=== PATIENT | female | born 1955 | race Caucasian/White ===

== ENCOUNTER → 2017-02-28 | Outpatient (CLI) | payer MEDICARE ==
--- NOTE | 2017-03-01 15:57 | WOMENS IMAGING REPORT ---
EXAM DESCRIPTION: BILAT SCREENING MAMMO W/CAD COMPLETED DATE/TIME: 02/28/2017 1:56 pm REASON FOR STUDY: SCREENING MAMMO Z12.31 ENCNTR SCREEN MAMMOGRAM FOR MALIGNANT NEOPLASM OF [place] COMPARISON: None. TECHNIQUE: Standard craniocaudal and mediolateral oblique views of each breast recorded using digita l acquisition. LIMITATIONS: None. FINDINGS: No masses, calcifications or architectural distortion. No areas of suspicion. Read with the assistance of CAD. .[facility] - R2 Cenova Version 1.3 .[facility] - R2 Cenova Version 1.3 .[facility] - R2 Cenova Version 2.4 .[facility] - R2 Cenova Version 2.4 .[facility] - R2 Leg Assembler Version 9.2 IMPRESSION: NORMAL MAMMOGRAM. BIRADS 1. BREAST DENSITY: a. The breasts are almost entirely fatty. BIRAD: 1 NEGATIVE RECOMMENDATION: ROUTINE SCREENING COMMENT: The patient has been notified of the results by letter per MQSA requirements. Additional no tification policies are in place for contacting patient with suspicious or incomplete findings. Quality ID #[id number]: The [employer] recommends an annual screening mammogram for women aged 40 years or over. This facility utilizes a reminder system to ensure that all patients receive reminder letters, and/or direct phone calls for appointments. This includes reminders for routine scr eening mammograms, diagnostic mammograms, or other Breast Imaging Interventions when appropriate. Th is patient will be placed in the appropriate reminder system. The [employer] (ACR) has developed recommendations for screening MRI of the breast s in certain patient populations, to be used in conjunction with mammography. Breast MRI surveillanc e may be appropriate for women with more than 20% lifetime risk of developing breast cancer as deter mined by genetic testing, significant family history of the disease, or history of mantle radiation f or Hodgkins Disease. ACR Practice Guidelines 2008. TECHNICAL DOCUMENTATION: FINDING NUMBER: (1) ASSESSMENT: (1) JOB ID: [id number] [employer]- All Rights Reserved
== END ==
LOC: WI 10:31
PROVIDERS: ATTEND Family Medicine
DX: Z12.31 Encounter for screening mammogram for malignant neoplasm of breast (principal)
CPT/HCPCS: 77067

== ENCOUNTER 2017-03-05 09:27 | Day surgery (SDC) | payer MEDICARE, OTHER ==
[~2017-03-05 09:27] MED LIST: FENTANYL CITRATE INJ/PF 100 MCG/2 ML AMPUL ONE; MIDAZOLAM 2 MG/2 ML INJ ONE; PROPOFOL INJ 200 MG/20 ML VIAL IV ONE
[2017-03-05 11:14] VITALS: BP 116/56
--- NOTE | 2017-03-05 13:33 | Operative Report ---
Operative Report DATE OF SURGERY: 03/05/17 Operative Report: The risks, benefits and alternatives of the procedure including risks of bleeding, perforation requiring surgery are explained to the patient in detail and informed consent was obtained. Patient was taken back to the endoscopy suite and placed in the left, lateral decubital position. Timeout was called. Propofol medications administered. A rectal examination is done which did not reveal any masses, tears or fissures. An Olympus videoscope was inserted into the patient's rectum. The scope was then carefully advanced all the way to the cecum. The cecum was identified by the usual anatomical landmarks including the ileocecal valve as well as the appendiceal office. Photodocumentation was obtained. The scope was then sequentially pulled back via the rest segments of the colon including the ascending colon, hepatic flexure, transverse colon, splenic flexure, descending colon finding to the rectosigmoid portions of the colon. Retroflexion maneuvers performed. PREOPERATIVE DIAGNOSIS: Personal history of colon polyp POSTOPERATIVE DIAGNOSIS: Colon polyp noted descending colon status post removal with snare polypectomy and retrieved. Internal hemorrhoids. Diverticulosis OPERATION: Colonoscopy with snare polypectomy SURGEON: CHUNG REZA ANESTHESIA: LMAC TISSUE REMOVED OR ALTERED: As noted above. COMPLICATIONS: None. ESTIMATED BLOOD LOSS: None. INTRAOPERATIVE FINDINGS: As described above. PROCEDURE: Patient tolerated procedure well. No immediate postprocedure complications are noted. Patient discharged in good condition. Discharge date 03/05/2017. Discharge diet: Regular. Discharge activity: Regular. 2-3 week follow-up to discuss findings. Patient is instructed to call the office or proceed to the emergency room should there be any further problems or questions. I would recommend a 3-5 year surveillance colonoscopy. Await pathology.
== END 2017-03-05 11:10 | disposition home or self-care (01) ==
LOC: END 09:27
PROVIDERS: ATTEND Internal Medicine Gastroenterology
PROC: 0DBG8ZX Excision of Left Large Intestine, Via Natural or Artificial Opening Endoscopic, Diagnostic (ICD-10-PCS; principal; 2017-03-05 12:00)
DX: Z12.11 Encounter for screening for malignant neoplasm of colon (principal); K57.30 Diverticulosis of large intestine without perforation or abscess without bleeding; K64.8 Other hemorrhoids; I10 Essential (primary) hypertension; M19.90 Unspecified osteoarthritis, unspecified site; E11.9 Type 2 diabetes mellitus without complications; K74.60 Unspecified cirrhosis of liver; K76.0 Fatty (change of) liver, not elsewhere classified; K21.9 Gastro-esophageal reflux disease without esophagitis; F17.210 Nicotine dependence, cigarettes, uncomplicated; Z79.4 Long term (current) use of insulin; Z79.1 Long term (current) use of non-steroidal anti-inflammatories (NSAID)
CPT/HCPCS: 45385; 82962; 88305 ×2; J2704; J2250; J3010

== ENCOUNTER 2017-03-18 19:42 | Inpatient (IN) | payer MEDICARE, OTHER ==
[2017-03-18] MEDS ORDERED: NORMAL SALINE 1000 ML 1,000 ML IV ONE (20:03)
[2017-03-18] MEDS ORDERED: ACETAMINOPHEN 325 MG TABLET PO ONE (20:04)
[2017-03-18] MEDS ORDERED: LEVOFLOXACIN 750 MG/D5W RTU 750 MG/150 ML RTUPB IV ONE (20:19)
[2017-03-18] MEDS ORDERED: RINGERS SOLUTION,LACTATED 1,000 ML IV ONE (20:20)
--- NOTE | 2017-03-18 20:21 | ER Document Report ---
ED General - General Chief Complaint: Flu Symptoms Stated Complaint: BACK PAIN,COUGH,CONGESTION Time Seen by Provider: 03/18/17 20:03 Notes: Patient is a 61-year-old female with a past medical history of liver cirrhosis, chronic kidney disease, diabetes with insulin dependence, who presents with confusion, cough, fever, and vomiting. Symptoms have been worsening since onset. She presents with a friend with whom she lives. The majority of the history as presented by the friend at the bedside as patient is still somewhat confused at time of evaluation. She reports for the past 24 hours patient has been had progressively worsening cough, apparent shortness of breath, fever and confusion. She denies any history of similar symptoms in the recent past. The patient was seen by an urgent care and was instructed to come to the emergency department due to her clinical appearance and vital signs. Patient has not tried any to improve her symptoms and nothing seems to worsen her symptoms. She does not smoke. TRAVEL OUTSIDE OF THE [place] IN LAST 30 DAYS: No - Related Data Allergies/Adverse Reactions: No Known Allergies Allergy (Verified 03/18/17 19:42) Past Medical History - General Information source: Friend - Social History Smoking Status: Never Smoker Frequency of alcohol use: None Drug Abuse: None Lives with: Friend Family History: Reviewed & Not Pertinent - Past Medical History Cardiac Medical History: Reports: Hx Hypertension Denies: Hx Coronary Artery Disease, Hx Heart Attack Pulmonary Medical History: Reports: Hx Asthma, Hx Pneumonia - A BABY Denies: Hx Bronchitis, Hx COPD Neurological Medical History: Denies: Hx Cerebrovascular Accident, Hx Seizures Musculoskeltal Medical History: Reports Hx Arthritis - Immunizations Hx Diphtheria, Pertussis, Tetanus Vaccination: No Hx Pneumococcal Vaccination: 09/19/16 Review of Systems - Review of Systems Notes: Constitutional: Positive for fever. HENT: Negative for sore throat. Eyes: Negative for visual changes. Cardiovascular: Negative for chest pain. Respiratory: Positive for shortness of breath and cough Gastrointestinal: Negative for abdominal pain, positive for vomiting Genitourinary: Negative for dysuria. Musculoskeletal: Negative for back pain. Skin: Negative for rash. Neurological: Negative for headaches, weakness or numbness. 10 point ROS negative except as marked above and in HPI. Physical Exam - Vital signs Vitals: Temp Pulse Resp BP Pulse Ox 100.6 F H 99 20 92/51 L 90 L 03/18/17 19:49 03/18/17 19:49 03/18/17 19:49 03/18/17 19:49 03/18/17 19:49 Interpretation: Hypotensive, Hypoxic, Tachypneic, Febrile Notes: PHYSICAL EXAMINATION: GENERAL: Somewhat listless, ill in appearance HEAD: Atraumatic, normocephalic. EYES: Pupils equal round and reactive to light, extraocular movements intact, sclera anicteric, conjunctiva are normal. ENT: nares patent, oropharynx clear without exudates. Dry mucous membranes. NECK: Normal range of motion, supple without lymphadenopathy LUNGS: Breath sounds diminished at the left base otherwise mild tachypnea but no overt respiratory distress HEART: Regular tachycardia without murmurs ABDOMEN: Soft, nontender, normoactive bowel sounds. No guarding, no rebound. No masses appreciated. EXTREMITIES: Normal range of motion, no pitting or edema. No cyanosis. NEUROLOGICAL: No focal neurological deficits. Moves all extremities spontaneously and on command. PSYCH: Somewhat somnolent, listless, but oriented X3 SKIN: Warm, Dry, normal turgor, no rashes or lesions noted. Course - Re-evaluation Re-evalutation: 03/18/17 20:19 Patient presents with signs and symptoms most concerning for a left lower lobe pneumonia. She is diminished on the left base on lung auscultation is hypoxic to 89% on room air without a baseline oxygen dependency. She arrives febrile and tachycardic, mildly listless and ill in appearance. Full sepsis workup will immediately be initiated, will start IV levofloxacin given clinical history and suspicion for pneumonia, obtain flu testing, and provide aggressive IV hydration. Will reassess on regular intervals given patient's current status. 03/18/17 21:00 Patient blood pressure has improved dramatically after receiving a total of 1 L of fluids, currently receiving second liter at this time. Current blood pressure 118 and 44. Heart rate is also normalized 82 bpm. Saturating 96% on 3 L by nasal cannula. Chest x-ray is suggestive of a possible right middle and left lower lobe pneumonia. Lactate 1.9. Given patient's oxygen dependence will consult with hospitalist for admission. 03/18/17 21:20 I discussed this case with Dr. Leyva who is accepted the patient for admission. She continues to be much clinically improved, now joking with staff members. - Vital Signs Vital signs: Temp Pulse Resp BP Pulse Ox 98.8 F 76 18 119/63 93 03/18/17 23:47 03/19/17 00:15 03/19/17 00:15 03/19/17 00:00 03/19/17 00:01 - Laboratory Result Diagrams: 03/18/17 20:30 03/18/17 20:30 Laboratory results interpreted by me: 03/18/17 03/18/17 03/18/17 20:30 20:30 20:30 RDW 14.1 H Plt Count 116 L Monocytes % 15.9 H VBG pH 7.43 H BUN 23 H Creatinine 1.60 H Est GFR ( Amer) 40 L Est GFR (Non-Af Amer) 33 L Glucose 127 H Direct Bilirubin AST ALT Ammonia 03/18/17 03/18/17 20:30 20:30 RDW Plt Count Monocytes % VBG pH BUN Creatinine Est GFR ( Amer) Est GFR (Non-Af Amer) Glucose Direct Bilirubin 0.5 H AST 122 H ALT 69 H Ammonia 33.3 H - Diagnostic Test Radiology reviewed: Image reviewed, Reports reviewed Critical Care Note - Critical Care Note Total time excluding time spent on procedures (mins): 38 Comments: Critical care time spent obtaining history from patient or surrogate, discussions with consultants, development of treatment plan with patient or surrogate, evaluation of patient's response to treatment, examination of patient , ordering and performing treatments and interventions, ordering and review of laboratory studies, re-evaluation of patient's condition, ordering and review of radiographic studies and review of old charts Discharge - Discharge Clinical Impression: Hypoxemia Sepsis Qualifiers: Sepsis type: sepsis due to unspecified organism Qualified Code(s): A41.9 - Sepsis, unspecified organism Left lower lobe pneumonia Qualifiers: Pneumonia type: due to unspecified organism Qualified Code(s): J18.1 - Lobar pneumonia, unspecified organism Hypotension Qualifiers: Hypotension type: unspecified hypotension type Qualified Code(s): I95.9 - Hypotension, unspecified Condition: Fair Disposition: ADMITTED INPATIENT [facility] Admitted: Telemetry
[2017-03-18 20:44] LABS: ABSOLUTE LYMPHOCYTES (AUTO) 1.1 10^3/uL (0.5-4.7); ABSOLUTE MONOCYTES (AUTO) 1.3 10^3/uL (0.1-1.4); ABSOLUTE NEUT (AUTO) 5.5 10^3/uL (1.7-8.2); BASOPHILS % (AUTO) 0.6 % (0-2); EOSINOPHILS % (AUTO) 0.1 % (0-6); HEMATOCRIT 44.2 % (36.0-47.0); LYMPHOCYTES % (AUTO) 14.3 % (13-45); MEAN CORPUSCULAR HEMOGLOBIN 31.8 pg (27.0-33.4); MEAN CORPUSCULAR VOLUME 94 fl (80-97); MONOCYTES % (AUTO) 15.9 % (3-13); PLATELET COUNT 116 10^3/uL (150-450); RED BLOOD COUNT 4.73 10^6/uL (3.72-5.28); RED CELL DISTRIBUTION WIDTH 14.1 % (11.5-14.0); SEGMENTED NEUTROPHILS % (AUTO) 69.1 % (42-78); TOTAL CELLS COUNTED % (AUTO) 100 %
[2017-03-18 20:45] LABS: VENOUS BLOOD HCO3 23.9 mmol/L (20-32); VENOUS BLOOD PCO2 36.7 mmHg (35-63); VENOUS BLOOD PH 7.43 (7.30-7.42)
--- NOTE | 2017-03-18 20:53 | RADIOLOGY REPORT (SQ) ---
EXAM DESCRIPTION: CHEST SINGLE VIEW COMPLETED DATE/TIME: 03/18/2017 8:42 pm REASON FOR STUDY: sob, fever COMPARISON: None. NUMBER OF VIEWS: One view. TECHNIQUE: Single frontal radiographic view of the chest acquired. LIMITATIONS: None. FINDINGS: LUNGS AND PLEURA: Suspect scar or subsegmental atelectasis in the lingula. Density along the right heart border may reflect right middle lobe pneumonia. Upper lung tierney are clear. MEDIASTINUM AND HILAR STRUCTURES: No masses. Contour normal. HEART AND VASCULAR STRUCTURES: Heart size looks prominent, possibly accentuated by portable technique . BONES: No acute findings. HARDWARE: None in the chest. OTHER: No other significant finding. IMPRESSION: Lung opacities as above. Right middle lobe pneumonia may be present. Two-view nonporta ble PA and lateral chest imaging may help to further confirm this. TECHNICAL DOCUMENTATION: JOB ID: [id number] [employer]- All Rights Reserved
[2017-03-18 21:03] LABS: ANION GAP 12 (5-19); BLOOD UREA NITROGEN 23 mg/dL (7-20); CALCIUM 8.8 mg/dL (8.4-10.2); CARBON DIOXIDE 24 mmol/L (22-30); CHLORIDE 103 mmol/L (98-107); GLUCOSE 127 mg/dL (75-110); POTASSIUM 3.6 mmol/L (3.6-5.0); SODIUM 138.9 mmol/L (137-145)
[2017-03-18 21:35] LABS: A TYPE INFLUENZA AG NEGATIVE (NEGATIVE); B INFLUENZA AG NEGATIVE (NEGATIVE)
[2017-03-18 21:44] LABS: ALANINE AMINOTRANSFERASE 69 U/L (9-52); ALBUMIN 3.5 g/dL (3.5-5.0); ALKALINE PHOSPHATASE 84 U/L (38-126); ASPARTATE AMINO TRANSFERASE 122 U/L (14-36); BILIRUBIN,DIRECT 0.5 mg/dL (0.0-0.4); BILIRUBIN,TOTAL 1.3 mg/dL (0.2-1.3); TOTAL PROTEIN 6.4 g/dL (6.3-8.2)
[2017-03-18] MEDS ORDERED: INSULIN GLARGINE,HUM.REC.ANLOG 300 UNIT/3 ML INSULN.PEN SUBCUT SCH (22:00)
[2017-03-18] MEDS ORDERED: GUAIFENESIN 600 MG TABLET.SA PO SCH (22:00)
[2017-03-18] MEDS ORDERED: DEXTROSE 40% GEL 15 GM TUBE PO PRN ×2 (22:04)
[2017-03-18] MEDS ORDERED: DEXTROSE 50%-WATER 25 GM/50 ML DISP.SYRIN IV PRN ×2 (22:04)
[2017-03-18] MEDS ORDERED: GLUCAGON,HUMAN RECOMB 1 MG INJ IM PRN (22:04)
[2017-03-18] MEDS ORDERED: GUAIFENESIN SYRP 200 MG/10 ML UDC PO PRN (22:04)
[2017-03-18] MEDS ORDERED: ALBUTEROL SULFATE 0.083% NEB 2.5 MG/3 ML AMPUL NEB PRN (22:04)
--- NOTE | 2017-03-18 22:42 | PDOC H&P ---
History of Present Illness Admission Date/PCP: 03/18/17 21:45 [facility] DO Patient complains of: Shortness of breath and cough History of Present Illness: ELISSA ROBERTS is a 61 year old female with known diabetes, chronic kidney disease, COPD and cirrhosis, presents to the emergency room with worsening shortness of breath over the last day. Upon evaluation in the emergency room she was found to have a right middle lobe pneumonia. She was started on antibiotic therapy and referred to us for ongoing care. Past Medical History Cardiac Medical History: Reports: Hypertension Denies: Coronary Artery Disease, Myocardial Infarction Pulmonary Medical History: Reports: Asthma, Pneumonia - A BABY Denies: Bronchitis, Chronic Obstructive Pulmonary Disease (COPD) Neurological Medical History: Denies: Seizures Endocrine Medical History: Reports: Diabetes Mellitus Type 2 Renal/ Medical History: Reports: Chronic Kidney Disease GI Medical History: Reports: Cirrhosis Musculoskeltal Medical History: Reports: Arthritis Hematology: Denies: Anemia Past Surgical History Past Surgical History: Reports: None Social History Information Source: Patient Lives with: Friend Smoking Status: Never Smoker Frequency of Alcohol Use: None Hx Recreational Drug Use: No Drugs: None Hx Prescription Drug Abuse: No Past Social History Note: Patient is - Advance Directive Resuscitation Status: Full Code Surrogate healthcare decision maker:: She wishes her friend and apartment mate to be her DURABLE POWER OF SALESPERSON RECREATIONAL VEHICLES for healthcare Family History Family History: Malignancy, Other - Cirrhosis, emphysema Parental Family History Reviewed: Yes Children Family History Reviewed: Yes Sibling(s) Family History Reviewed.: Yes Medication/Allergy Home Medications: Escitalopram Oxalate [Lexapro] 10 mg PO DAILY 03/01/17 Fluticasone/Salmeterol [Advair 250-50 Diskus 28 dose] 1 inh IH Q12H 03/01/17 Gabapentin 400 mg PO TID 03/01/17 Hydrochlorothiazide 12.5 mg PO DAILY 03/01/17 Hydroxyzine HCl [Atarax 25 mg Tablet] 1 - 2 tab PO ASDIR PRN 03/01/17 Insulin Aspart [Novolog Flexpen] 0 unit SUBCUT .SLD SCALE 03/01/17 Insulin Glargine,Hum.rec.anlog [Lantus Insulin Inj 300 Unit/3 ml Pen] 1 unit SUBCUT QHS 03/01/17 Lactulose [Constulose 10 gm/15 mL Oral Solution] 10 gm PO TID 03/01/17 Losartan Potassium [Cozaar 100 mg Tablet] 100 mg PO DAILY 03/01/17 Pantoprazole Sodium 20 mg PO ASDIR PRN 03/01/17 Allergies/Adverse Reactions: No Known Allergies Allergy (Verified 03/18/17 19:42) Review of Systems Constitutional: ABSENT: chills, fever(s), headache(s), weight gain, weight loss Eyes: ABSENT: visual disturbances Ears: ABSENT: hearing changes Cardiovascular: ABSENT: chest pain, dyspnea on exertion, edema, orthropnea, palpitations Respiratory: PRESENT: as per HPI, cough, dyspnea Gastrointestinal: ABSENT: abdominal pain, constipation, diarrhea, hematemesis, hematochezia, nausea, vomiting Genitourinary: ABSENT: dysuria, hematuria Musculoskeletal: ABSENT: joint swelling Integumentary: ABSENT: rash, wounds Neurological: PRESENT: memory loss. ABSENT: abnormal gait, abnormal speech, confusion, dizziness, focal weakness, syncope Psychiatric: ABSENT: anxiety, depression, homidical ideation, suicidal ideation Endocrine: PRESENT: other - Diabetes. ABSENT: cold intolerance, heat intolerance, polydipsia, polyuria Hematologic/Lymphatic: ABSENT: easy bleeding, easy bruising Physical Exam Vital Signs: Temp Pulse Resp BP Pulse Ox 100.6 F H 99 20 118/61 95 03/18/17 19:49 03/18/17 19:49 03/18/17 22:01 03/18/17 22:01 03/18/17 22:01 General appearance: PRESENT: no acute distress, cooperative, morbidly obese, well-nourished Head exam: PRESENT: atraumatic, normocephalic Eye exam: PRESENT: conjunctiva pink, EOMI, PERRLA. ABSENT: scleral icterus Ear exam: PRESENT: normal external ear exam Mouth exam: PRESENT: moist, tongue midline Neck exam: ABSENT: carotid bruit, JVD, lymphadenopathy, thyromegaly Respiratory exam: PRESENT: wheezes - Right sided, other - Bronchial breath sounds on the right base Cardiovascular exam: PRESENT: RRR. ABSENT: diastolic murmur, rubs, systolic murmur GI/Abdominal exam: PRESENT: normal bowel sounds, soft. ABSENT: distended, guarding, mass, organolmegaly, rebound, tenderness Rectal exam: PRESENT: deferred Extremities exam: PRESENT: full ROM. ABSENT: calf tenderness, clubbing, pedal edema Neurological exam: PRESENT: alert, awake, oriented to person, oriented to place , oriented to time, oriented to situation, CN II-XII grossly intact. ABSENT: motor sensory deficit Psychiatric exam: PRESENT: appropriate affect, normal mood. ABSENT: homicidal ideation, suicidal ideation Skin exam: PRESENT: dry, intact, warm. ABSENT: cyanosis, rash Results Laboratory Results: 03/18/17 03/18/17 03/18/17 20:30 20:30 20:30 WBC 8.0 Hgb 15.0 Hct 44.2 Plt Count 116 L VBG pH VBG pCO2 VBG HCO3 Sodium 138.9 Potassium 3.6 Carbon Dioxide 24 BUN 23 H Creatinine 1.60 H Glucose 127 H Lactic Acid 1.9 AST ALT Alkaline Phosphatase Ammonia Total Protein Albumin Influenza A (Rapid) Influenza B (Rapid) 03/18/17 03/18/17 03/18/17 20:30 20:30 20:30 WBC Hgb Hct Plt Count VBG pH 7.43 H VBG pCO2 36.7 VBG HCO3 23.9 Sodium Potassium Carbon Dioxide BUN Creatinine Glucose Lactic Acid AST 122 H ALT 69 H Alkaline Phosphatase 84 Ammonia 33.3 H Total Protein 6.4 Albumin 3.5 Influenza A (Rapid) Influenza B (Rapid) 03/18/17 20:45 WBC Hgb Hct Plt Count VBG pH VBG pCO2 VBG HCO3 Sodium Potassium Carbon Dioxide BUN Creatinine Glucose Lactic Acid AST ALT Alkaline Phosphatase Ammonia Total Protein Albumin Influenza A (Rapid) NEGATIVE Influenza B (Rapid) NEGATIVE Impressions: Chest X-Ray 03/18/17 20:03 IMPRESSION: Lung opacities as above. Right middle lobe pneumonia may be present. Two-view nonportable PA and lateral chest imaging may help to further confirm this. Assessment & Plan - Diagnosis (1) RML pneumonia Qualifiers: Pneumonia type: due to unspecified organism Qualified Code(s): J18.1 - Lobar pneumonia, unspecified organism Is this a current diagnosis for this admission?: Yes (2) Acute respiratory failure with hypoxemia Is this a current diagnosis for this admission?: Yes (3) CKD (chronic kidney disease) stage 3, GFR 30-59 ml/min Is this a current diagnosis for this admission?: Yes (4) Hypotension Qualifiers: Hypotension type: unspecified hypotension type Qualified Code(s): I95.9 - Hypotension, unspecified Is this a current diagnosis for this admission?: Yes (5) Hypoxemia Is this a current diagnosis for this admission?: Yes (6) Sepsis Qualifiers: Sepsis type: sepsis due to unspecified organism Qualified Code(s): A41.9 - Sepsis, unspecified organism Is this a current diagnosis for this admission?: Yes - Time Time Spent: 30 to 50 Minutes - Inpatient Certification Based on my medical assessment, after consideration of the patient's comorbidities, presenting symptoms, or acuity I expect that the services needed warrant INPATIENT care.: Yes I certify that my determination is in accordance with my understanding of Medicare's requirements for reasonable and necessary INPATIENT services [42 CFR 412.3e].: Yes Medical Necessity: Significant Comorbidiites Make Outpatient Treatment Too Risky , Need Close Monitoring Due to Risk of Patient Decompensation, Need For IV Fluids, Need for Nebulizer Therapy and Monitoring of Response, Need for IV Antibiotics, Risk of Complication if Not Cared For in Hospital - Plan Summary Plan Summary: This patient will be admitted to a regular nursing floor. She is currently in no distress with satisfactory saturations and blood pressure. She will continue on supplemental oxygen and antibiotics as well as aerosolized bronchodilators. I would suspect that once she no longer requires supplemental oxygen she can complete her course of antibiotics orally. She will receive DVT prophylaxis with low molecular weight heparin. Anticipated length of stay is greater than 2 midnights
[2017-03-19] MEDS: IPRATROPIUM/ALBUTEROL 0.5-2.5 MG/3 ML AMPUL NEB SCH ×4 (00:15→23:59)
[2017-03-19] MEDS: LACTULOSE SYRUP 20 GM/30 ML UDCUP PO SCH ×3 (00:18→22:07)
[2017-03-19] MEDS: RINGERS SOLUTION,LACTATED 1,000 ML IV PRN ×2 (01:40→14:13)
[2017-03-19] MEDS ORDERED: INFLUENZA ADLT QUAD (36MOS+) 2017-18 VAC 0.5 ML SYR IM PRN (01:58)
[2017-03-19 02:06] LABS: APPEARANCE,URINE CLEAR; BILIRUBIN,URINE NEGATIVE (NEGATIVE); COLOR,URINE YELLOW; GLUCOSE, URINE NEGATIVE (NEGATIVE); KETONES,URINE NEGATIVE (NEGATIVE); LEUKOCYTE ESTERASE,URINE SMALL (NEGATIVE); NITRITE,URINE NEGATIVE (NEGATIVE); PROTEIN,URINE NEGATIVE (NEGATIVE)
[2017-03-19 04:56] LABS: ABSOLUTE LYMPHOCYTES (AUTO) 1.5 10^3/uL (0.5-4.7); ABSOLUTE NEUT (AUTO) 3.7 10^3/uL (1.7-8.2); BASOPHILS % (AUTO) 0.5 % (0-2); EOSINOPHILS % (AUTO) 0.3 % (0-6); HEMATOCRIT 38.6 % (36.0-47.0); HEMOGLOBIN 13.1 g/dL (12.0-15.5); LYMPHOCYTES % (AUTO) 24.3 % (13-45); MEAN CORPUSCULAR HEMOGLOBIN 31.8 pg (27.0-33.4); MEAN CORPUSCULAR HGB CONC 33.9 g/dL (32.0-36.0); MEAN CORPUSCULAR VOLUME 94 fl (80-97); MONOCYTES % (AUTO) 15.9 % (3-13); RED BLOOD COUNT 4.12 10^6/uL (3.72-5.28); RED CELL DISTRIBUTION WIDTH 14.3 % (11.5-14.0); TOTAL CELLS COUNTED % (AUTO) 100 %; WHITE BLOOD COUNT 6.3 10^3/uL (4.0-10.5)
[2017-03-19 05:17] LABS: ANION GAP 9 (5-19); BLOOD UREA NITROGEN 20 mg/dL (7-20); CALCIUM 8.5 mg/dL (8.4-10.2); CARBON DIOXIDE 23 mmol/L (22-30); CHLORIDE 107 mmol/L (98-107); GLUCOSE 87 mg/dL (75-110); POTASSIUM 3.1 mmol/L (3.6-5.0); SODIUM 138.6 mmol/L (137-145)
[2017-03-19 05:38] LABS: PLATELET COUNT 87 10^3/uL (150-450)
--- NOTE | 2017-03-19 08:56 | RADIOLOGY REPORT (SQ) ---
EXAM DESCRIPTION: CHEST PA/LAT COMPLETED DATE/TIME: 03/19/2017 7:49 am REASON FOR STUDY: pneumonia COMPARISON: 03/18/2017 EXAM PARAMETERS: NUMBER OF VIEWS: two views TECHNIQUE: Digital Frontal and Lateral radiographic views of the chest acquired. RADIATION DOSE: NA LIMITATIONS: none FINDINGS: LUNGS AND PLEURA: Persistent bibasilar opacities without improvement. Fullness along the right heart border continues. MEDIASTINUM AND HILAR STRUCTURES: No masses or contour abnormalities. HEART AND VASCULAR STRUCTURES: Heart normal size. No evidence for failure. BONES: No acute findings. HARDWARE: None in the chest. OTHER: No other significant finding. IMPRESSION: No improvement in the parenchymal opacities. Questionable mass along the right heart border. Possibly pericardial cyst. RECOMMENDATION: Consider CT scan chest. TECHNICAL DOCUMENTATION: JOB ID: [id number] [employer]- All Rights Reserved
[2017-03-19] MEDS: FAMOTIDINE 20 MG TABLET PO SCH ×2 (09:14→22:07)
[2017-03-19] MEDS: GUAIFENESIN 600 MG TABLET.SA PO SCH ×2 (09:15→22:07)
[2017-03-19] MEDS: ENOXAPARIN SODIUM INJ 30 MG/0.3 ML DISP.SYRIN SUBCUT SCH (09:18)
[2017-03-19] MEDS: ACETAMINOPHEN 325 MG TABLET PO PRN (10:33)
--- NOTE | 2017-03-19 10:51 | PDOC PROGRESS REPORT ---
Subjective Progress Note for:: 03/19/17 Subjective:: The patient was admitted overnight with hypoxic respiratory failure thought to be secondary to pneumonia. She had a repeat chest x-ray this morning that revealed persistent infiltrate and they could not rule out an underlying mass. The patient however is doing very well. She has been weaned off of her oxygen at this point and is doing well. She has had no fever or chills since she came into the hospital. She continues to have a cough with bronchospasm. She is somewhat short of breath at times. She has no chest pain or heart palpitations. No nausea, vomiting or diarrhea. No dysuria, frequency or hematuria Reason For Visit: SEPSIS Physical Exam Vital Signs: Temp Pulse Resp BP Pulse Ox 97.7 F 67 20 117/62 95 03/19/17 07:09 03/19/17 09:07 03/19/17 09:07 03/19/17 07:09 03/19/17 09:07 Pulse Oximeter Continuous Start: 03/18/17 22: 08 Freq: RTQ4 Status: Active Document 03/19/17 09:07 TPO (Rec: 03/19/17 09:20 TPO [email or web address]) Pulse Oximetry Assessment Oxygen Saturation (92-100) 95 Oxygen Delivery Method Room Air Fraction of Inspired Oxygen (FIO2) 21 Equipment Usage Equipment in Use Continuous SpO2 Machine # 14 Intake & Output 03/18/17 03/19/17 03/20/17 06:59 06:59 06:59 Intake Total 883 Output Total 1100 Balance -217 Weight 82.5 kg General appearance: PRESENT: no acute distress, obese, well-developed, well- nourished Head exam: PRESENT: atraumatic, normocephalic Mouth exam: PRESENT: moist, tongue midline Respiratory exam: PRESENT: other - She has some wheezing and coarse breath sounds throughout all lung tierney anteriorly Cardiovascular exam: PRESENT: RRR. ABSENT: diastolic murmur, rubs, systolic murmur GI/Abdominal exam: PRESENT: normal bowel sounds, soft. ABSENT: distended, guarding, mass, organolmegaly, rebound, tenderness Rectal exam: PRESENT: deferred Extremities exam: PRESENT: full ROM. ABSENT: calf tenderness, clubbing, pedal edema Neurological exam: PRESENT: alert, awake, oriented to person, oriented to place , oriented to time, oriented to situation, CN II-XII grossly intact. ABSENT: motor sensory deficit Psychiatric exam: PRESENT: appropriate affect, normal mood. ABSENT: homicidal ideation, suicidal ideation Skin exam: PRESENT: dry, intact, warm. ABSENT: cyanosis, rash Results Laboratory Results: 03/19/17 04:25 03/19/17 04:25 03/19/17 03/19/17 03/19/17 01:25 04:25 04:25 WBC 6.3 RBC 4.12 Hgb 13.1 Hct 38.6 MCV 94 MCH 31.8 MCHC 33.9 RDW 14.3 H Plt Count 87 L Seg Neutrophils % 59.0 Lymphocytes % 24.3 Monocytes % 15.9 H Eosinophils % 0.3 Basophils % 0.5 Absolute Neutrophils 3.7 Absolute Lymphocytes 1.5 Absolute Monocytes 1.0 Absolute Eosinophils 0.0 Absolute Basophils 0.0 Sodium 138.6 Potassium 3.1 L Chloride 107 Carbon Dioxide 23 Anion Gap 9 BUN 20 Creatinine 1.33 H Est GFR ( Amer) 49 L Est GFR (Non-Af Amer) 40 L Glucose 87 Calcium 8.5 Urine Color YELLOW Urine Appearance CLEAR Urine pH 6.0 Ur Specific [place] 1.010 Urine Protein NEGATIVE Urine Glucose (UA) NEGATIVE Urine Ketones NEGATIVE Urine Blood NEGATIVE Urine Nitrite NEGATIVE Ur Leukocyte Esterase SMALL H Urine WBC (Auto) 8 Urine RBC (Auto) 0 Impressions: Chest X-Ray 03/19/17 00:00 IMPRESSION: No improvement in the parenchymal opacities. Questionable mass along the right heart border. Possibly pericardial cyst. Assessment & Plan - Diagnosis (1) Acute respiratory failure with hypoxemia Is this a current diagnosis for this admission?: Yes Plan: Her hypoxia has resolved at this point. Her acute respiratory failure is likely secondary to underlying pneumonia. (2) Sepsis Qualifiers: Sepsis type: sepsis due to unspecified organism Qualified Code(s): A41.9 - Sepsis, unspecified organism Is this a current diagnosis for this admission?: Yes Plan: Present on admission manifested by leukocytosis, relative hypotension, tachypnea , tachycardia and evidence of infection. Her sepsis symptoms are slowly resolving. (3) RML pneumonia Qualifiers: Pneumonia type: due to unspecified organism Qualified Code(s): J18.1 - Lobar pneumonia, unspecified organism Is this a current diagnosis for this admission?: Yes Plan: Concerns are for gram positives and atypicals. She will continue IV Levaquin. This is the first full day of treatment. Due to concerns for underlying mass lesion seen onChest x-ray I will obtain a CT scan of her chest today. (4) COPD (chronic obstructive pulmonary disease) Is this a current diagnosis for this admission?: Yes Plan: At this point she does not appear to be having an acute exacerbation. (5) Cirrhosis Is this a current diagnosis for this admission?: Yes Plan: Stable. She told me today that she often has issues with hepatic encephalopathy. Today she is having no issues with her mental status. (6) Diabetes Is this a current diagnosis for this admission?: Yes Plan: She has insulin-dependent diabetes. She will continue Lantus with sliding scale coverage. (7) CKD (chronic kidney disease) stage 3, GFR 30-59 ml/min Is this a current diagnosis for this admission?: Yes Plan: I believe she is at her baseline but we will check a chemistry panel in the morning. (8) Hypokalemia Is this a current diagnosis for this admission?: Yes Plan: Repleted. She will have a level checked in the morning. - Time Time Spent with patient: 25-34 minutes - Inpatient Certification Medical Necessity: Need for IV Antibiotics, Other - Inpatient hospitalization remains necessary. The patient presented with acute hypoxic respiratory failure and pneumonia. She is improving. If she continues to do well for the next 24 hours she hopefully can be discharged tomorrow.
--- NOTE | 2017-03-19 12:16 | RADIOLOGY REPORT (SQ) ---
EXAM DESCRIPTION: CT CHEST WITH COMPLETED DATE/TIME: 03/19/2017 11:50 am REASON FOR STUDY: ? pna vs mass COMPARISON: None. TECHNIQUE: CT scan of the chest performed using helical scanning technique with dynamic intravenous contrast injection. Images reviewed with lung, soft tissue and bone windows. Reconstructed coronal and sagittal MPR images reviewed. All images stored on PACS. All CT scanners at this facility use dose modulation, iterative reconstruction, and/or weight based d osing when appropriate to reduce radiation dose to as low as reasonably achievable (ALARA). [facility]: Dose Right [facility]: CareDose [facility]: Dose Right [facility]: Teradose 4D [facility]: BackTrack CONTRAST TYPE AND DOSE: contrast/concentration: Isovue 370.00 mg/ml; Total Contrast Delivered: 79.0 ml; Total Saline Delivered: 44.0 ml RENAL FUNCTION: BUN 20 creatinine 1.3. RADIATION DOSE: CT Rad equipment meets quality standard of care and radiation dose reduction techniq ues were employed. CTDIvol: 19.8 mGy. DLP: 796 mGy-cm. . LIMITATIONS: None. FINDINGS: LUNGS AND PLEURA: Subsegmental airspace disease in the lingula. Calcified granuloma right upper lobe. No effusions. HILAR AND MEDIASTINAL STRUCTURES: No identified masses or abnormal nodes. Abundant epicardial fat. HEART AND VASCULAR STRUCTURES: No aneurysm or dissection. No central pulmonary emboli. No pericardi al effusion. HARDWARE: None in the chest. UPPER ABDOMEN: Cirrhosis. Splenic and esophageal varices. Splenorenal shunt. Stone filled gallblad alysha. THYROID AND OTHER SOFT TISSUES: No masses. No adenopathy. BONES: No significant finding. OTHER: No other significant finding. IMPRESSION: Atelectasis or residual pneumonia in the lingula. Prominent epicardial fat pad. No vannessa dence of underlying lung mass. TECHNICAL DOCUMENTATION: JOB ID: [id number] Quality ID # [id number]: Final reports with documentation of one or more dose reduction techniques (e.g., Au tomated exposure control, adjustment of the mA and/or kV according to patient size, use of iterative reconstruction technique) 2010 [employer]- All Rights Reserved
[2017-03-19] MEDS ORDERED: LEVOFLOXACIN 500 MG/D5W RTU 500 MG/100 ML RTUPB IV SCH (18:00)
[2017-03-19] MEDS ORDERED: INSULIN GLARGINE,HUM.REC.ANLOG 1,000 UNIT/10 ML UNIT SUBCUT SCH (22:00)
[2017-03-19] MEDS: INSULIN LISPRO 100 UNIT/ML 3 ML VIAL SUBCUT PRN (22:07)
[2017-03-19] MEDS ORDERED: ALBUTEROL SULFATE HFA (90 MCG/PUFF) 200 PUFF/8.5 GM MDI IH ONE (22:41)
[2017-03-20] MEDS: RINGERS SOLUTION,LACTATED 1,000 ML IV PRN ×2 (03:03→15:34)
[2017-03-20] MEDS: ACETAMINOPHEN 325 MG TABLET PO PRN ×2 (04:12→08:23)
[2017-03-20 05:12] LABS: ABSOLUTE LYMPHOCYTES (AUTO) 1.2 10^3/uL (0.5-4.7); ABSOLUTE MONOCYTES (AUTO) 0.9 10^3/uL (0.1-1.4); ABSOLUTE NEUT (AUTO) 3.2 10^3/uL (1.7-8.2); BASOPHILS % (AUTO) 0.5 % (0-2); EOSINOPHILS % (AUTO) 0.4 % (0-6); HEMATOCRIT 39.1 % (36.0-47.0); HEMOGLOBIN 13.4 g/dL (12.0-15.5); LYMPHOCYTES % (AUTO) 22.7 % (13-45); MEAN CORPUSCULAR HEMOGLOBIN 31.9 pg (27.0-33.4); MEAN CORPUSCULAR HGB CONC 34.3 g/dL (32.0-36.0); MEAN CORPUSCULAR VOLUME 93 fl (80-97); MONOCYTES % (AUTO) 16.4 % (3-13); RED BLOOD COUNT 4.21 10^6/uL (3.72-5.28); TOTAL CELLS COUNTED % (AUTO) 100 %; WHITE BLOOD COUNT 5.3 10^3/uL (4.0-10.5)
[2017-03-20 05:17] LABS: ANION GAP 10 (5-19); BLOOD UREA NITROGEN 15 mg/dL (7-20); CALCIUM 8.6 mg/dL (8.4-10.2); CARBON DIOXIDE 23 mmol/L (22-30); CHLORIDE 109 mmol/L (98-107); GLUCOSE 170 mg/dL (75-110); MAGNESIUM 1.6 mg/dL (1.6-2.3); POTASSIUM 3.4 mmol/L (3.6-5.0); SODIUM 142.4 mmol/L (137-145)
[2017-03-20 05:57] LABS: PLATELET COUNT 79 10^3/uL (150-450)
[2017-03-20] MEDS ORDERED: ONDANSETRON HCL INJ/PF 4 MG/2 ML SDV IV PRN ×2 (08:41→10:30)
[2017-03-20] MEDS: IPRATROPIUM/ALBUTEROL 0.5-2.5 MG/3 ML AMPUL NEB SCH ×2 (09:03→16:59)
[2017-03-20] MEDS ORDERED: POTASSIUM CHLORIDE 10 MEQ TABLET.SA PO ONE (09:45)
[2017-03-20] MEDS: FAMOTIDINE 20 MG TABLET PO SCH ×2 (09:59→22:55)
[2017-03-20] MEDS ORDERED: (PENDING PHARMACY ID) (Hydroxyzine Hcl [Atarax 25 Mg Tablet] 25 MG) PO SCH (10:00)
[2017-03-20] MEDS ORDERED: ESCITALOPRAM OXALATE 10 MG TABLET PO SCH (10:00)
[2017-03-20] MEDS ORDERED: LACTULOSE PO SCH (10:00)
[2017-03-20] MEDS ORDERED: (PENDING PHARMACY ID) (Pantoprazole Sodium [Protonix] 20 MG) PO SCH (10:00)
[2017-03-20] MEDS ORDERED: HYDROXYZINE HCL 10 MG TABLET PO SCH (10:00)
[2017-03-20] MEDS: ESCITALOPRAM OXALATE 10 MG TABLET PO SCH (10:01)
[2017-03-20] MEDS: GUAIFENESIN 600 MG TABLET.SA PO SCH ×2 (10:01→22:55)
[2017-03-20] MEDS: HYDROCHLOROTHIAZIDE 12.5 MG CAPSULE PO SCH (10:02)
[2017-03-20] MEDS: INSULIN LISPRO 100 UNIT/ML 3 ML VIAL SUBCUT PRN ×2 (10:03→22:55)
[2017-03-20] MEDS ORDERED: HYDROMORPHONE HCL INJ/PF 2 MG/ML AMPULE IV PRN (10:30)
--- NOTE | 2017-03-20 10:43 | PDOC PROGRESS REPORT ---
Subjective Subjective:: The patient was admitted 2 days ago with hypoxic respiratory failure thought to be secondary to pneumonia. She had a repeat chest x-ray ye sterday that revealed persistent infiltrate and they could not rule out an underlying mass. She had a CT scan of the chest performed which revealed residual pneumonia in the lingula. No evidence of an underlying mass. Yesterday the patient was doing amazingly well. She had been weaned off of her oxygen. She still had a persistent cough with some bronchospasm but was doing quite well. Nursing staff reports that overnight the patient developed acute onset of abdominal pain associated with nausea at the same time she developed severe lumbar pain. The patient does have underlying known. I reviewed her CT scan yesterday and it did visualize cirrhosis the upper abdomen. She had evidence of cirrhosis with splenic and esophageal varices. She has a splenorenal shunt. She also was noted to have cholelithiasis but no evidence of cholecystitis. This morning she is running a fever of 102. She states that she feels just horrible. She has fever and chills. She continues to have a cough with bronchospasm but does not think this is any worse. She is not requiring oxygen. She is having significant nausea but no vomiting. She continues to have abdominal pain. She states she had an episode of diarrhea this morning. She is not having any urinary complaints. She is having significant lower back pain and appears to be quite uncomfortable. Reason For Visit: SEPSIS Physical Exam Vital Signs: Temp Pulse Resp BP Pulse Ox 102.2 F H 69 18 136/65 H 93 03/20/17 08:33 03/20/17 08:33 03/20/17 08:33 03/20/17 08:33 03/20/17 08:33 Pulse Oximeter Continuous Start: 03/18/17 22: 08 Freq: RTQ4 Status: Active Document 03/20/17 04:00 CMI (Rec: 03/20/17 04:15 CMI [email or web address]) Pulse Oximetry Assessment Oxygen Saturation (92-100) 94 Oxygen Delivery Method Room Air Fraction of Inspired Oxygen (FIO2) 21 Equipment Usage Equipment in Use Continuous SpO2 Machine # 14 Intake & Output 03/19/17 03/20/17 03/21/17 06:59 06:59 06:59 Intake Total 883 3401 Output Total 1100 1500 Balance -217 1901 Weight 82.5 kg 84.4 kg General appearance: PRESENT: mild distress, other - She is frequently coughing and looks as if she feels quite poorly Head exam: PRESENT: atraumatic, normocephalic Mouth exam: PRESENT: moist, tongue midline Respiratory exam: PRESENT: other - She has some scattered coarse breath sounds anteriorly. Cardiovascular exam: PRESENT: RRR. ABSENT: diastolic murmur, rubs, systolic murmur GI/Abdominal exam: PRESENT: guarding, hypoactive bowel sounds, tenderness, other - She is quite tender to palpation with guarding in the left upper quadrant. No rebound or rigidity. She has hypoactive bowel sounds. ABSENT: rebound, rigid Rectal exam: PRESENT: deferred Extremities exam: PRESENT: full ROM. ABSENT: calf tenderness, clubbing, pedal edema Musculoskeletal exam: PRESENT: other - She is extremely tender to palpation and cries out in pain over her L3-L4 area. Straight leg test is positive on the left causing severe pain. Neurological exam: PRESENT: alert, awake, oriented to person, oriented to place , oriented to time, oriented to situation, CN II-XII grossly intact. ABSENT: motor sensory deficit Psychiatric exam: PRESENT: appropriate affect, normal mood. ABSENT: homicidal ideation, suicidal ideation Skin exam: PRESENT: dry, intact, warm. ABSENT: cyanosis, rash Results Laboratory Results: 03/20/17 04:08 03/20/17 04:08 03/20/17 03/20/17 04:08 04:08 WBC 5.3 RBC 4.21 Hgb 13.4 Hct 39.1 MCV 93 MCH 31.9 MCHC 34.3 RDW 14.0 Plt Count 79 L Seg Neutrophils % 60.0 Lymphocytes % 22.7 Monocytes % 16.4 H Eosinophils % 0.4 Basophils % 0.5 Absolute Neutrophils 3.2 Absolute Lymphocytes 1.2 Absolute Monocytes 0.9 Absolute Eosinophils 0.0 Absolute Basophils 0.0 Sodium 142.4 Potassium 3.4 L Chloride 109 H Carbon Dioxide 23 Anion Gap 10 BUN 15 Creatinine 1.16 Est GFR ( Amer) 57 L Est GFR (Non-Af Amer) 47 L Glucose 170 H Calcium 8.6 Magnesium 1.6 03/19/17 01:25 Clean Catch Midstream Urine Culture - Final Mixed Urogenital Connie Impressions: Chest CT 03/19/17 00:00 IMPRESSION: Atelectasis or residual pneumonia in the lingula. Prominent epicardial fat pad. No evidence of underlying lung mass. Chest X-Ray 03/19/17 00:00 IMPRESSION: No improvement in the parenchymal opacities. Questionable mass along the right heart border. Possibly pericardial cyst. Assessment & Plan - Diagnosis (1) Fever Is this a current diagnosis for this admission?: Yes Plan: The patient has spiked a very high fever this morning. She has associated abdominal pain as well as severe lower back pain. I am going to repeat blood cultures as well as a urine culture. I will repeat her chest x-ray this morning. She has significant known issues in the abdomen. I am going to get a CT scan of the abdomen and pelvis as well as a CT scan of the lumbar spine for evaluation. I have added a sed rate and CRP on today's we will obtain a sed rate and CRP. I also will obtain a lipase this morning. We will swab the patient for influenza and follow-up with all of these results. (2) Abdominal pain Is this a current diagnosis for this admission?: Yes Plan: She has known cirrhosis and cholelithiasis noted on her scan from yesterday. She also has a splenorenal shunt. Her abdomen is significantly tender but she does not have an acute abdomen at this point. We will get a CT scan of the abdomen for further evaluation. (3) Severe low back pain Is this a current diagnosis for this admission?: Yes Plan: The patient has severe low back pain this morning. She was not complaining of this yesterday at all. She is significantly tender to palpation over her lumbar spine and cries out in pain when I palpate it. Going to get a stat CT scan of the lumbar spine as well. We will follow-up with all of these results. I am giving her IV Dilaudid 0.5 mg every 4 hours for pain. She will also have oxycodone 5 mg for pain as well. (4) Acute respiratory failure with hypoxemia Is this a current diagnosis for this admission?: Yes Plan: Her hypoxia has resolved at this point. Her acute respiratory failure is likely secondary to underlying pneumonia. (5) RML pneumonia Qualifiers: Pneumonia type: due to unspecified organism Qualified Code(s): J18.1 - Lobar pneumonia, unspecified organism Is this a current diagnosis for this admission?: Yes Plan: Concerns are for gram positives and atypicals. She will continue IV Levaquin. This is day #2 of treatment. She is spiking a high fever today. Her cough and bronchospasm did not seem to be acutely worse. CT scan of the chest yesterday revealed a resolving pneumonia. No underlying mass lesion. I will repeat a chest x-ray this morning and we will follow-up with those results. (6) Sepsis Qualifiers: Sepsis type: sepsis due to unspecified organism Qualified Code(s): A41.9 - Sepsis, unspecified organism Is this a current diagnosis for this admission?: Yes Plan: Present on admission manifested by leukocytosis, relative hypotension, tachypnea , tachycardia and evidence of infection. Yesterday she was doing much better however she has spiked a fever of 102 today. I am not sure whether this is related to her underlying pneumonia. Workup as outlined above. (7) COPD (chronic obstructive pulmonary disease) Is this a current diagnosis for this admission?: Yes Plan: At this point she does not appear to be having an acute exacerbation. (8) Cirrhosis Is this a current diagnosis for this admission?: Yes Plan: Stable. She told me today that she often has issues with hepatic encephalopathy. Today she is having no issues with her mental status. (9) Diabetes Is this a current diagnosis for this admission?: Yes Plan: She has insulin-dependent diabetes. She will continue Lantus with sliding scale coverage. (10) CKD (chronic kidney disease) stage 3, GFR 30-59 ml/min Is this a current diagnosis for this admission?: Yes Plan: I believe she is at her baseline but we will check a chemistry panel in the morning. Her creatinine improved today (11) Hypokalemia Is this a current diagnosis for this admission?: Yes Plan: Repleted. She will have a level checked in the morning. - Time Time Spent with patient: 35 or more minutes - Inpatient Certification Medical Necessity: Need For IV Fluids, Need for IV Antibiotics, Other - Inpatient hospitalization remains necessary. Overall the patient is much worse today. She is now spiking high fevers and is having abdominal pain as well as low back pain. Workup as outlined above but clearly she will be in the hospital for the next couple of days.
[2017-03-20 10:48] LABS: C-REACTIVE PROTEIN 36.7 mg/L (<10.0); LIPASE 257.9 U/L (23-300)
[2017-03-20] MEDS: ENOXAPARIN SODIUM INJ 30 MG/0.3 ML DISP.SYRIN SUBCUT SCH (11:01)
[2017-03-20] MEDS: LACTULOSE SYRUP 20 GM/30 ML UDCUP PO SCH ×2 (11:03→22:56)
[2017-03-20] MEDS: LOSARTAN POTASSIUM 50 MG TABLET PO SCH (11:16)
[2017-03-20] MEDS: HYDROXYZINE PAMOATE 25 MG CAPSULE PO SCH (11:17)
[2017-03-20] MEDS: OXYCODONE HCL IR 5 MG TABLET PO PRN (11:18)
[2017-03-20] MEDS: FLUTICASONE/SALMETEROL DISKUS 250-50 MCG/DOSE IH SCH ×2 (11:21→18:03)
[2017-03-20] MEDS: INSULIN GLARGINE,HUM.REC.ANLOG 300 UNIT/3 ML INSULN.PEN SUBCUT SCH (11:22)
--- NOTE | 2017-03-20 11:40 | RADIOLOGY REPORT (SQ) ---
EXAM DESCRIPTION: CHEST SINGLE VIEW COMPLETED DATE/TIME: 03/20/2017 11:09 am REASON FOR STUDY: fever, cough COMPARISON: AP chest 03/18/2017 CT chest 03/19/2017 EXAM PARAMETERS: NUMBER OF VIEWS: One view. TECHNIQUE: Single frontal radiographic view of the chest acquired. RADIATION DOSE: NA LIMITATIONS: None. FINDINGS: LUNGS AND PLEURA: Prominent right cardiophrenic angle fat pad is unchanged. There is minimal bandlike atelectasis at the left lung base. No fluffy alveolar infiltrates worrisome for edema or pneumonia. No pneumothorax. No pleural effusi ons. MEDIASTINUM AND HILAR STRUCTURES: Prominent right cardiophrenic angle fat pad unchanged. No gross hi lar enlargement HEART AND VASCULAR STRUCTURES: Stable borderline cardiomegaly BONES: No acute findings. HARDWARE: None in the chest. OTHER: No other significant finding. IMPRESSION: Minimal left basilar atelectasis. TECHNICAL DOCUMENTATION: JOB ID: [id number] [employer]- All Rights Reserved
[2017-03-20 12:24] LABS: ALANINE AMINOTRANSFERASE 70 U/L (9-52); ALBUMIN 2.9 g/dL (3.5-5.0); ALKALINE PHOSPHATASE 70 U/L (38-126); ASPARTATE AMINO TRANSFERASE 130 U/L (14-36); BILIRUBIN,DIRECT 0.3 mg/dL (0.0-0.4); BILIRUBIN,TOTAL 0.7 mg/dL (0.2-1.3); TOTAL PROTEIN 5.5 g/dL (6.3-8.2)
[2017-03-20] MEDS: GABAPENTIN 400 MG CAPSULE PO SCH ×2 (14:28→22:55)
[2017-03-20 15:20] LABS: APPEARANCE,URINE CLEAR; BILIRUBIN,URINE NEGATIVE (NEGATIVE); COLOR,URINE YELLOW; GLUCOSE, URINE NEGATIVE (NEGATIVE); KETONES,URINE NEGATIVE (NEGATIVE); LEUKOCYTE ESTERASE,URINE NEGATIVE (NEGATIVE); NITRITE,URINE NEGATIVE (NEGATIVE); PROTEIN,URINE NEGATIVE (NEGATIVE); URINE SPECIFIC GRAVITY 1.005
--- NOTE | 2017-03-20 15:57 | RADIOLOGY REPORT (SQ) ---
EXAM DESCRIPTION: CT ABD/PELVIS NO ORAL OR IV COMPLETED DATE/TIME: 03/20/2017 2:59 pm REASON FOR STUDY: fever, abd pain COMPARISON: None. TECHNIQUE: CT scan of the abdomen and pelvis performed without intravenous or oral contrast. Images reviewed with lung, soft tissue, and bone windows. Reconstructed coronal and sagittal MPR images revi ewed. All images stored on PACS. All CT scanners at this facility use dose modulation, iterative reconstruction, and/or weight based d osing when appropriate to reduce radiation dose to as low as reasonably achievable (ALARA). [facility]: Dose Right [facility]: CareDose [facility]: Dose Right [facility]: Teradose 4D [facility]: Smart Drywave RADIATION DOSE: CT Rad equipment meets quality standard of care and radiation dose reduction techniq ues were employed. CTDIvol: 18.9 mGy. DLP: 997 mGy-cm.mGy. LIMITATIONS: None. FINDINGS: LOWER CHEST: Linear density is identified in the left lung base which could represent subs egmental atelectasis or scarring. No nodules or infiltrates. NON-CONTRASTED LIVER, SPLEEN, ADRENALS: Evaluation limited by lack of IV contrast. No identified sign ificant masses. There is some nodularity of the hepatic contours and the possibility of hepatic cirr hosis cannot be excluded. There are perisplenic collateral vascular structures in the left upper sam drant which would suggest portal hypertension. A component of these vessels appear to be emptying in to the left renal vein PANCREAS: No masses. No peripancreatic inflammatory changes. GALLBLADDER: Bold large calcified gallstone is identified. No inflammatory changes to suggest cholecy stitis. RIGHT KIDNEY AND URETER: No suspicious masses. Assessment limited by lack of IV contrast. No signif icant calcifications. No hydronephrosis or hydroureter. LEFT KIDNEY AND URETER: No suspicious masses. Assessment limited by lack of IV contrast. No signifi cant calcifications. No hydronephrosis or hydroureter. AORTA AND RETROPERITONEUM: No aneurysm. No retroperitoneal masses or adenopathy. BOWEL AND PERITONEAL CAVITY: There is soft tissue stranding in the right abdomen extending from the u pper quadrant to the lower quadrant adjacent to the ascending colon and cecum. The appearance would suggest edematous or inflammatory changes. There is some thickening of the adjacent fascial planes. There are couple extra luminal gas collections within the edematous or inflammatory changes. The po ssibility of diverticulitis should be considered. There is a confluent predominately cystic mass inv olving the cecum extending from the level of the ileocecal valve inferiorly with some associated gas collections which is suspicious for an abscess collection. This confluent density extends inferiorly into the right pelvis and extends to the level of the uterus. There is a similar appearing confluen t density in the left pelvis adjacent to the uterus with a central calcification. There are other ad jacent calcifications. The possibility of an ovarian neoplasm with extension into the right abdomen should be considered as a differential possibility. MRI may be of value for further evaluation APPENDIX: Normal. PELVIS, BLADDER, AND ABDOMINAL WALL:No abnormal masses. No free fluid. Bladder normal. BONES: No significant findings. OTHER: No other significant finding. IMPRESSION: Findings suggestive of hepatic cirrhosis and portal hypertension as noted above. Clinic al correlation is recommended. Findings in the right abdomen and pelvis as noted above which could b e related to an infectious process. The possibility of an ovarian neoplasm with extension cannot be excluded. MRI may be of value for further evaluation. Other findings as noted above COMMENT: Quality ID # [id number]: Final reports with documentation of one or more dose reduction techniques (e.g., Automated exposure control, adjustment of the mA and/or kV according to patient size, use of iterative reconstruction technique) TECHNICAL DOCUMENTATION: JOB ID: [id number] [employer]- All Rights Reserved
[2017-03-20 16:33] LABS: A TYPE INFLUENZA AG NEGATIVE (NEGATIVE); B INFLUENZA AG NEGATIVE (NEGATIVE)
[2017-03-20] MEDS ORDERED: LACTULOSE SYRUP 20 GM/30 ML UDCUP PO SCH (18:00)
[2017-03-20] MEDS: LEVOFLOXACIN 500 MG TABLET PO SCH (18:02)
[2017-03-21] MEDS: IPRATROPIUM/ALBUTEROL 0.5-2.5 MG/3 ML AMPUL NEB SCH ×4 (00:14→23:50)
[2017-03-21] MEDS: RINGERS SOLUTION,LACTATED 1,000 ML IV PRN ×2 (01:44→12:11)
[2017-03-21 05:18] LABS: ABSOLUTE LYMPHOCYTES (AUTO) 1.5 10^3/uL (0.5-4.7); ABSOLUTE MONOCYTES (AUTO) 0.5 10^3/uL (0.1-1.4); ABSOLUTE NEUT (AUTO) 2.1 10^3/uL (1.7-8.2); BASOPHILS % (AUTO) 0.8 % (0-2); EOSINOPHILS % (AUTO) 0.7 % (0-6); HEMATOCRIT 38.8 % (36.0-47.0); HEMOGLOBIN 13.2 g/dL (12.0-15.5); LYMPHOCYTES % (AUTO) 36.6 % (13-45); MEAN CORPUSCULAR HEMOGLOBIN 32.1 pg (27.0-33.4); MEAN CORPUSCULAR HGB CONC 34.1 g/dL (32.0-36.0); MEAN CORPUSCULAR VOLUME 94 fl (80-97); MONOCYTES % (AUTO) 12.3 % (3-13); RED BLOOD COUNT 4.13 10^6/uL (3.72-5.28); RED CELL DISTRIBUTION WIDTH 14.1 % (11.5-14.0); SEGMENTED NEUTROPHILS % (AUTO) 49.6 % (42-78); TOTAL CELLS COUNTED % (AUTO) 100 %; WHITE BLOOD COUNT 4.2 10^3/uL (4.0-10.5)
[2017-03-21 05:29] LABS: ANION GAP 8 (5-19); BLOOD UREA NITROGEN 13 mg/dL (7-20); CALCIUM 8.8 mg/dL (8.4-10.2); CARBON DIOXIDE 26 mmol/L (22-30); CHLORIDE 110 mmol/L (98-107); GLUCOSE 118 mg/dL (75-110); MAGNESIUM 1.6 mg/dL (1.6-2.3); SODIUM 144.1 mmol/L (137-145)
[2017-03-21] MEDS: LANSOPRAZOLE 15 MG TAB.RAP.DR PO SCH (05:29)
[2017-03-21] MEDS: GABAPENTIN 400 MG CAPSULE PO SCH ×3 (05:29→21:37)
[2017-03-21] MEDS: OXYCODONE HCL IR 5 MG TABLET PO PRN (05:29)
[2017-03-21 05:42] LABS: PLATELET COUNT 76 10^3/uL (150-450)
[2017-03-21] MEDS: FLUTICASONE/SALMETEROL DISKUS 250-50 MCG/DOSE IH SCH ×2 (10:44→18:16)
[2017-03-21] MEDS: ENOXAPARIN SODIUM INJ 30 MG/0.3 ML DISP.SYRIN SUBCUT SCH (10:44)
[2017-03-21] MEDS: FAMOTIDINE 20 MG TABLET PO SCH ×2 (10:45→21:37)
[2017-03-21] MEDS: ESCITALOPRAM OXALATE 10 MG TABLET PO SCH (10:45)
[2017-03-21] MEDS: HYDROCHLOROTHIAZIDE 12.5 MG CAPSULE PO SCH (10:45)
[2017-03-21] MEDS: LOSARTAN POTASSIUM 50 MG TABLET PO SCH (10:46)
[2017-03-21] MEDS: GUAIFENESIN 600 MG TABLET.SA PO SCH ×2 (10:46→21:37)
[2017-03-21] MEDS: HYDROXYZINE PAMOATE 25 MG CAPSULE PO SCH (10:47)
[2017-03-21] MEDS: INSULIN GLARGINE,HUM.REC.ANLOG 300 UNIT/3 ML INSULN.PEN SUBCUT SCH (10:53)
[2017-03-21] MEDS: LACTULOSE SYRUP 20 GM/30 ML UDCUP PO SCH (10:53)
--- NOTE | 2017-03-21 12:46 | PDOC PROGRESS REPORT ---
Subjective Progress Note for:: 03/21/17 Subjective:: Patient admitted with hypoxic respiratory failure thought to be secondary to pneumonia. CT scan of the chest reveals residual pneumonia in the lingula. CT of the abdomen done reveals a possible pelvic mass and MRI has been suggested for further evaluation which has been ordered she also has cirrhosis of the liver with portal hypertension. She was noted to have a fever yesterday however she has been afebrile for the last 24 hours. Reason For Visit: SEPSIS Physical Exam Vital Signs: Temp Pulse Resp BP Pulse Ox 97.9 F 78 16 128/48 H 92 03/21/17 12:11 03/21/17 12:11 03/21/17 12:11 03/21/17 12:11 03/21/17 12:11 Pulse Oximeter Continuous Start: 03/18/17 22: 08 Freq: RTQ4 Status: Active Document 03/21/17 08:50 TPO (Rec: 03/21/17 09:27 TPO [email or web address]) Pulse Oximetry Assessment Oxygen Saturation (92-100) 95 Oxygen Delivery Method Nasal Cannula Fraction of Inspired Oxygen (FIO2) 21 Equipment Usage Equipment in Use Continuous SpO2 Machine # 14 Intake & Output 03/20/17 03/21/17 03/22/17 06:59 06:59 06:59 Intake Total 3401 3258 Output Total 1500 1650 Balance 1901 1608 Weight 84.4 kg 86.1 kg General appearance: PRESENT: no acute distress, well-developed, well-nourished Head exam: PRESENT: atraumatic, normocephalic Eye exam: PRESENT: conjunctiva pink, EOMI, PERRLA. ABSENT: scleral icterus Ear exam: PRESENT: normal external ear exam Mouth exam: PRESENT: moist Teeth exam: PRESENT: other Neck exam: ABSENT: carotid bruit, JVD, lymphadenopathy, thyromegaly Respiratory exam: PRESENT: clear to auscultation betty. ABSENT: rales, rhonchi, wheezes Cardiovascular exam: PRESENT: RRR. ABSENT: diastolic murmur, rubs, systolic murmur Pulses: PRESENT: normal dorsalis pedis pul Vascular exam: PRESENT: normal capillary refill GI/Abdominal exam: PRESENT: normal bowel sounds, soft. ABSENT: distended, guarding, mass, organolmegaly, rebound, tenderness Rectal exam: PRESENT: deferred Extremities exam: PRESENT: full ROM. ABSENT: calf tenderness, clubbing, pedal edema Neurological exam: PRESENT: alert, awake, oriented to person, oriented to time. ABSENT: motor sensory deficit Psychiatric exam: PRESENT: appropriate affect. ABSENT: homicidal ideation, suicidal ideation Skin exam: PRESENT: dry, intact, warm. ABSENT: cyanosis, rash Results Laboratory Results: 03/21/17 03:54 03/21/17 03:54 03/20/17 03/21/17 03/21/17 14:45 03:54 03:54 WBC 4.2 RBC 4.13 Hgb 13.2 Hct 38.8 MCV 94 MCH 32.1 MCHC 34.1 RDW 14.1 H Plt Count 76 L Seg Neutrophils % 49.6 Lymphocytes % 36.6 Monocytes % 12.3 Eosinophils % 0.7 Basophils % 0.8 Absolute Neutrophils 2.1 Absolute Lymphocytes 1.5 Absolute Monocytes 0.5 Absolute Eosinophils 0.0 Absolute Basophils 0.0 Sodium 144.1 Potassium 4.0 Chloride 110 H Carbon Dioxide 26 Anion Gap 8 BUN 13 Creatinine 1.15 Est GFR ( Amer) 58 L Est GFR (Non-Af Amer) 48 L Glucose 118 H Calcium 8.8 Magnesium 1.6 Urine Color YELLOW Urine Appearance CLEAR Urine pH 6.0 Ur Specific [place] 1.005 Urine Protein NEGATIVE Urine Glucose (UA) NEGATIVE Urine Ketones NEGATIVE Urine Blood NEGATIVE Urine Nitrite NEGATIVE Ur Leukocyte Esterase NEGATIVE Urine WBC (Auto) 0 Urine RBC (Auto) 0 03/19/17 01:25 Clean Catch Midstream Urine Culture - Final Mixed Urogenital Connie Impressions: Chest CT 03/19/17 00:00 IMPRESSION: Atelectasis or residual pneumonia in the lingula. Prominent epicardial fat pad. No evidence of underlying lung mass. Abdomen/Pelvis CT 03/20/17 00:00 IMPRESSION: Findings suggestive of hepatic cirrhosis and portal hypertension as noted above. Clinical correlation is recommended. Findings in the right abdomen and pelvis as noted above which could be related to an infectious process. The possibility of an ovarian neoplasm with extension cannot be excluded. MRI may be of value for further evaluation. Other findings as noted above Chest X-Ray 03/20/17 00:00 IMPRESSION: Minimal left basilar atelectasis. Assessment & Plan - Diagnosis (1) Pelvic mass in female Is this a current diagnosis for this admission?: Yes Plan: MRI has been ordered and further consultations will depend on findings (2) Abdominal pain Qualifiers: Abdominal location: generalized Qualified Code(s): R10.84 - Generalized abdominal pain Is this a current diagnosis for this admission?: Yes (3) Acute respiratory failure with hypoxemia Is this a current diagnosis for this admission?: Yes (4) CKD (chronic kidney disease) stage 3, GFR 30-59 ml/min Is this a current diagnosis for this admission?: Yes (5) COPD (chronic obstructive pulmonary disease) Is this a current diagnosis for this admission?: Yes (6) Cirrhosis Qualifiers: Hepatic cirrhosis type: unspecified hepatic cirrhosis Is this a current diagnosis for this admission?: Yes Plan: No acute intervention at this time (7) Fever Qualifiers: Fever type: unspecified Qualified Code(s): R50.9 - Fever, unspecified Is this a current diagnosis for this admission?: Yes Plan: This is currently resolved and patient has been afebrile for at least 24 hours (8) RML pneumonia Qualifiers: Pneumonia type: due to unspecified organism Qualified Code(s): J18.1 - Lobar pneumonia, unspecified organism Is this a current diagnosis for this admission?: Yes Plan: She is on oral Levaquin (9) Sepsis Qualifiers: Sepsis type: sepsis due to unspecified organism Qualified Code(s): A41.9 - Sepsis, unspecified organism Is this a current diagnosis for this admission?: Yes (10) Severe low back pain Is this a current diagnosis for this admission?: Yes Plan: Back pain is resolved. CT scan done shows no direct etiology for back pain - Time Time Spent with patient: 15-24 minutes Medications reviewed and adjusted accordingly: Yes - Inpatient Certification Medical Necessity: Need Close Monitoring Due to Risk of Patient Decompensation
[2017-03-21] MEDS: INSULIN LISPRO 100 UNIT/ML 3 ML VIAL SUBCUT PRN ×2 (13:37→22:36)
--- NOTE | 2017-03-21 15:41 | PDOC CONSULTATION ---
Consultation Consult Date: 03/21/17 Consult reason:: Evaluate for possible ischemic colitis History of Present Illness Admission Date/PCP: 03/18/17 21:45 [facility] DO History of Present Illness: This is a 61-year-old female admitted by the hospitalist medicine service with acute respiratory failure. She had a chest CT which revealed a pneumonia. She was started on antibiotics. She improved from a pulmonary standpoint. Yesterday morning she spiked a fever to 102. At that time she is said she was having some abdominal pain. A CT scan was ordered. The CT was done without oral or IV contrast because of her prior CT of the chest which was done with IV contrast. The CT has been read as possible ischemic changes of the right colon. I was asked by the hospitalist medicine service to see the patient this afternoon. Upon my evaluation, the patient reports to me that she has no abdominal pain. She reports to me she has had no abdominal pain other than some chronic abdominal pain which she has had for the past 7 months. She describes his pain as a "twitching" pain in the lower abdomen. She has had loose stools for the past several months as well. She reports 3 loose stools daily. She reports no melena or hematochezia. She reports to me that she has had no nausea or vomiting. Past Medical History Cardiac Medical History: Reports: Hypertension Denies: Coronary Artery Disease, Myocardial Infarction Pulmonary Medical History: Reports: Asthma, Pneumonia - A BABY Denies: Bronchitis, Chronic Obstructive Pulmonary Disease (COPD) Neurological Medical History: Denies: Seizures Endocrine Medical History: Reports: Diabetes Mellitus Type 2 Renal/ Medical History: Reports: Chronic Kidney Disease GI Medical History: Reports: Cirrhosis Musculoskeltal Medical History: Reports: Arthritis Psychiatric Medical History: Reports: Depression Hematology: Denies: Anemia Past Surgical History Past Surgical History: Reports: None Social History Lives with: Friend Smoking Status: Never Smoker Frequency of Alcohol Use: None Hx Recreational Drug Use: Yes Drugs: None Hx Prescription Drug Abuse: No - Advance Directive Resuscitation Status: Full Code Family History Family History: Reviewed & Not Pertinent Parental Family History Reviewed: No Children Family History Reviewed: No Sibling(s) Family History Reviewed.: No Medication/Allergy Home Medications: Clotrimazole 1 applic TOP BIDP PRN 03/19/17 Escitalopram Oxalate [Lexapro 10 mg Tablet] 10 mg PO DAILY 03/19/17 Fluticasone/Salmeterol [Advair 250-50 Diskus 28 dose] 1 puff IH BID 03/19/17 Gabapentin [Neurontin 400 mg Capsule] 400 mg PO Q8 03/19/17 Hydrochlorothiazide [Hydrodiuril 12.5 mg Capsule] 12.5 mg PO DAILY 03/19/17 Hydroxyzine HCl [Atarax 25 mg Tablet] 25 mg PO DAILY 03/19/17 Insulin Aspart [Novolog Insulin (Aspart) 100 unit/mL] 0 units SQ .PERSLIDINGSCALE 03/19/17 Insulin Glargine,Hum.rec.anlog [Lantus Solostar] 70 units SQ QPM 03/19/17 Lactulose [Constulose] 15 ml PO BID 03/19/17 Losartan Potassium [Cozaar 100 mg Tablet] 100 mg PO DAILY 03/19/17 Pantoprazole Sodium [Protonix] 20 mg PO DAILY 03/19/17 Phenylephrine HCl [Sudafed PE] 10 mg PO DAILYP PRN 03/19/17 Allergies/Adverse Reactions: No Known Allergies Allergy (Verified 03/18/17 19:42) Physical Exam Vital Signs: Temp Pulse Resp BP Pulse Ox 97.9 F 79 16 128/48 H 92 03/21/17 12:11 03/21/17 14:00 03/21/17 12:11 03/21/17 12:11 03/21/17 12:15 Pulse Oximeter Continuous Start: 03/18/17 22: 08 Freq: RTQ4 Status: Active Document 03/21/17 12:15 TPO (Rec: 03/21/17 13:14 TPO [email or web address]) Pulse Oximetry Assessment Oxygen Saturation (92-100) 92 Oxygen Delivery Method Nasal Cannula Fraction of Inspired Oxygen (FIO2) 21 Equipment Usage Equipment in Use Continuous SpO2 Machine # 14 Intake & Output 03/20/17 03/21/17 03/22/17 06:59 06:59 06:59 Intake Total 3401 3258 Output Total 1500 1650 Balance 1901 1608 Weight 84.4 kg 86.1 kg General appearance: PRESENT: other - Obese female. She does not appear to be in distress. Respiratory exam: PRESENT: other - She has a few expiratory wheezes predominantly on the left. Right lung is largely clear. Cardiovascular exam: PRESENT: RRR, other - She is not tachycardic GI/Abdominal exam: PRESENT: other - Soft, nontender. She has multiple bruises from injection of insulin. No masses palpable. Bowel sounds are present. No guarding or peritoneal signs Results Laboratory Results: 03/21/17 03:54 03/21/17 03:54 03/21/17 03/21/17 03:54 03:54 WBC 4.2 RBC 4.13 Hgb 13.2 Hct 38.8 MCV 94 MCH 32.1 MCHC 34.1 RDW 14.1 H Plt Count 76 L Seg Neutrophils % 49.6 Lymphocytes % 36.6 Monocytes % 12.3 Eosinophils % 0.7 Basophils % 0.8 Absolute Neutrophils 2.1 Absolute Lymphocytes 1.5 Absolute Monocytes 0.5 Absolute Eosinophils 0.0 Absolute Basophils 0.0 Sodium 144.1 Potassium 4.0 Chloride 110 H Carbon Dioxide 26 Anion Gap 8 BUN 13 Creatinine 1.15 Est GFR ( Amer) 58 L Est GFR (Non-Af Amer) 48 L Glucose 118 H Calcium 8.8 Magnesium 1.6 03/19/17 01:25 Clean Catch Midstream Legionella Urinary Antigen - Final Impressions: Chest CT 03/19/17 00:00 IMPRESSION: Atelectasis or residual pneumonia in the lingula. Prominent epicardial fat pad. No evidence of underlying lung mass. Abdomen/Pelvis CT 03/20/17 00:00 IMPRESSION: Findings suggestive of hepatic cirrhosis and portal hypertension as noted above. Clinical correlation is recommended. Findings in the right abdomen and pelvis as noted above which could be related to an infectious process. The possibility of an ovarian neoplasm with extension cannot be excluded. MRI may be of value for further evaluation. Other findings as noted above Chest X-Ray 03/20/17 00:00 IMPRESSION: Minimal left basilar atelectasis. Assessment & Plan - Diagnosis (1) Abdominal pain Qualifiers: Abdominal location: generalized Qualified Code(s): R10.84 - Generalized abdominal pain Is this a current diagnosis for this admission?: Yes - Plan Summary Plan Summary: She reports to me that the pain she was having yesterday has been present for about 7 months. She has had loose stools occurring about 3 times a day which is again unchanged over the past 7 months. I have reviewed the CT scan and I do agree that there are possible bubbles of air within the mesenteric vasculature. The study was done without contrast. There is no evidence of free air. I do not see any air within the liver itself. She does have evidence of significant portal hypertension. I have discussed the case with the radiologist and I think at this point would be most reasonable to repeat her laboratory studies and consider repeat orally and IV contrast CT. I do not think she needs urgent surgical intervention. Again, her white count is normal. She does not have a left shift. Her creatinine is improving from 1.6 at the time of admission to 1.16 today. Her serum bicarb is normal. Her lactic acid was normal on admission. I will repeat her laboratory studies including CBC, CMP and lactic acid now.
[2017-03-21 16:18] LABS: ABSOLUTE LYMPHOCYTES (AUTO) 1.5 10^3/uL (0.5-4.7); ABSOLUTE MONOCYTES (AUTO) 0.5 10^3/uL (0.1-1.4); ABSOLUTE NEUT (AUTO) 2.7 10^3/uL (1.7-8.2); BASOPHILS % (AUTO) 0.5 % (0-2); EOSINOPHILS % (AUTO) 0.4 % (0-6); HEMOGLOBIN 13.2 g/dL (12.0-15.5); LYMPHOCYTES % (AUTO) 32.4 % (13-45); MEAN CORPUSCULAR HEMOGLOBIN 31.7 pg (27.0-33.4); MEAN CORPUSCULAR HGB CONC 33.8 g/dL (32.0-36.0); MEAN CORPUSCULAR VOLUME 94 fl (80-97); RED BLOOD COUNT 4.15 10^6/uL (3.72-5.28); RED CELL DISTRIBUTION WIDTH 14.2 % (11.5-14.0); SEGMENTED NEUTROPHILS % (AUTO) 56.7 % (42-78); TOTAL CELLS COUNTED % (AUTO) 100 %; WHITE BLOOD COUNT 4.7 10^3/uL (4.0-10.5)
[2017-03-21 16:24] LABS: PLATELET COUNT 77 10^3/uL (150-450)
[2017-03-21 16:28] LABS: ALANINE AMINOTRANSFERASE 72 U/L (9-52); ALBUMIN 2.8 g/dL (3.5-5.0); ALKALINE PHOSPHATASE 60 U/L (38-126); ANION GAP 7 (5-19); ASPARTATE AMINO TRANSFERASE 108 U/L (14-36); BILIRUBIN,DIRECT 0.3 mg/dL (0.0-0.4); BILIRUBIN,TOTAL 0.6 mg/dL (0.2-1.3); BLOOD UREA NITROGEN 14 mg/dL (7-20); CALCIUM 8.6 mg/dL (8.4-10.2); CARBON DIOXIDE 27 mmol/L (22-30); CHLORIDE 106 mmol/L (98-107); GLUCOSE 226 mg/dL (75-110); POTASSIUM 4.1 mmol/L (3.6-5.0); SODIUM 139.9 mmol/L (137-145); TOTAL PROTEIN 5.7 g/dL (6.3-8.2)
[2017-03-21] MEDS: LEVOFLOXACIN 500 MG TABLET PO SCH (18:16)
--- NOTE | 2017-03-21 20:09 | RADIOLOGY REPORT (SQ) ---
EXAM DESCRIPTION: CT ABD/PELVIS WITH IV ORAL COMPLETED DATE/TIME: 03/21/2017 7:33 pm REASON FOR STUDY: Abdominal pain, fever COMPARISON: 03/20/2017 TECHNIQUE: CT scan of the abdomen and pelvis performed with intravenous and oral contrast using benigno anne scanning technique with dynamic intravenous contrast injection. Images reviewed with lung, soft t issue, and bone windows. Reconstructed coronal and sagittal MPR images reviewed. Delayed images for e valuation of the urinary system also acquired. All images stored on PACS. All CT scanners at this facility use dose modulation, iterative reconstruction, and/or weight based d osing when appropriate to reduce radiation dose to as low as reasonably achievable (ALARA). [facility]: Dose Right [facility]: CareDose [facility]: Dose Right [facility]: Teradose 4D [facility]: Apptio CONTRAST TYPE AND DOSE: contrast/concentration: Isovue 370.00 mg/ml; Total Contrast Delivered: 93.0 ml; Total Saline Delivered: 51.0 ml RENAL FUNCTION: Creatinine 1.15 RADIATION DOSE: CT Rad equipment meets quality standard of care and radiation dose reduction techniq ues were employed. CTDIvol: 18.2 - 19.6 mGy. DLP: 2045 mGy-cm. . LIMITATIONS: None. FINDINGS: LOWER CHEST: Bibasilar atelectasis. LIVER: No masses. Nodular contour suggests cirrhosis. SPLEEN: Normal size spleen. Perisplenic varices. PANCREAS: No masses. No significant calcifications. No adjacent inflammation or peripancreatic fluid collections. Pancreatic duct not dilated. GALLBLADDER: Large calcified stone in the gallbladder. ADRENAL GLANDS: No significant masses or asymmetry. RIGHT KIDNEY AND URETER: No solid masses. No significant calcifications. No hydronephrosis or hyd roureter. LEFT KIDNEY AND URETER: No solid masses. No significant calcifications. No hydronephrosis or hydr oureter. AORTA AND VESSELS: No aneurysm. No dissection. Renal arteries, SMA, celiac without stenosis. RETROPERITONEUM: No retroperitoneal adenopathy, hemorrhage or masses. BOWEL AND PERITONEAL CAVITY: There is generalized mucosal and bowel wall thickening of the ascending colon to the mid transverse colon. Pericolonic fat stranding. Appearance is typical of colitis. Sl ightly more prominent than the previous day study. APPENDIX: Not visualized. PELVIS: Bladder is unremarkable. There is a calcification in the left ovary. Question dermoid. ABDOMINAL WALL: No masses. No hernias. BONES: No significant or acute findings. OTHER: No other significant finding. IMPRESSION: Ascending and transverse colitis with pericolonic fat stranding common mucosal edema com mon bowel wall thickening. Progressed slightly since previous. Large calcified gallstone. Cirrhotic liver. Perisplenic varices. Possible dermoid in the left ovary. TECHNICAL DOCUMENTATION: JOB ID: [id number] Quality ID # [id number]: Final reports with documentation of one or more dose reduction techniques (e.g., Au tomated exposure control, adjustment of the mA and/or kV according to patient size, use of iterative reconstruction technique) 2010 [employer]- All Rights Reserved
[2017-03-22 05:13] LABS: HEMATOCRIT 37.6 % (36.0-47.0); MEAN CORPUSCULAR HEMOGLOBIN 32.1 pg (27.0-33.4); MEAN CORPUSCULAR HGB CONC 34.5 g/dL (32.0-36.0); MEAN CORPUSCULAR VOLUME 93 fl (80-97); RED BLOOD COUNT 4.04 10^6/uL (3.72-5.28); RED CELL DISTRIBUTION WIDTH 13.5 % (11.5-14.0); WHITE BLOOD COUNT 4.5 10^3/uL (4.0-10.5)
[2017-03-22 05:27] LABS: PLATELET COUNT 83 10^3/uL (150-450)
[2017-03-22] MEDS: LANSOPRAZOLE 15 MG TAB.RAP.DR PO SCH (06:02)
[2017-03-22] MEDS: GABAPENTIN 400 MG CAPSULE PO SCH ×3 (06:02→21:24)
[2017-03-22] MEDS ORDERED: METRONIDAZOLE 500 MG/NS RTU 100 ML IV ONE (07:00)
[2017-03-22] MEDS: IPRATROPIUM/ALBUTEROL 0.5-2.5 MG/3 ML AMPUL NEB SCH ×2 (08:13→16:12)
[2017-03-22] MEDS: INSULIN GLARGINE,HUM.REC.ANLOG 300 UNIT/3 ML INSULN.PEN SUBCUT SCH (09:34)
[2017-03-22] MEDS: INSULIN LISPRO 100 UNIT/ML 3 ML VIAL SUBCUT PRN ×4 (09:34→22:29)
[2017-03-22] MEDS: LACTULOSE SYRUP 20 GM/30 ML UDCUP PO SCH (09:35)
[2017-03-22] MEDS: FLUTICASONE/SALMETEROL DISKUS 250-50 MCG/DOSE IH SCH ×2 (09:35→17:31)
[2017-03-22] MEDS: GUAIFENESIN 600 MG TABLET.SA PO SCH ×2 (09:36→21:24)
[2017-03-22] MEDS: ESCITALOPRAM OXALATE 10 MG TABLET PO SCH (09:36)
[2017-03-22] MEDS: HYDROCHLOROTHIAZIDE 12.5 MG CAPSULE PO SCH (09:36)
[2017-03-22] MEDS: FAMOTIDINE 20 MG TABLET PO SCH ×2 (09:36→21:24)
--- NOTE | 2017-03-22 10:50 | PDOC PROGRESS REPORT ---
Subjective Progress Note for:: 03/22/17 Subjective:: Feels well. Minimal abdominal discomfort. Tolerating a diet well. Loose bowel movements are solidifying. Reason For Visit: SEPSIS Physical Exam Vital Signs: Temp Pulse Resp BP Pulse Ox 98.6 F 72 18 131/63 H 94 03/22/17 08:06 03/22/17 08:13 03/22/17 08:13 03/22/17 08:06 03/22/17 08:13 Pulse Oximeter Continuous Start: 03/18/17 22: 08 Freq: RTQ4 Status: Active Document 03/22/17 08:13 TPO (Rec: 03/22/17 08:22 TPO [email or web address]) Pulse Oximetry Assessment Oxygen Saturation (92-100) 94 Oxygen Delivery Method Room Air Fraction of Inspired Oxygen (FIO2) 21 Equipment Usage Equipment in Use Continuous SpO2 Machine # 14 Intake & Output 03/21/17 03/22/17 03/23/17 06:59 06:59 06:59 Intake Total 3258 4361 Output Total 1650 4300 Balance 1608 61 Weight 86.1 kg 88.2 kg General appearance: PRESENT: no acute distress, cooperative Respiratory exam: PRESENT: clear to auscultation betty Cardiovascular exam: PRESENT: RRR GI/Abdominal exam: PRESENT: other - Soft, nondistended, nontender to palpation. No tenderness even to deep palpation on the right side. Neurological exam: PRESENT: alert, awake Results Laboratory Results: 03/22/17 04:10 03/21/17 16:00 03/21/17 03/21/17 03/21/17 16:00 16:00 16:00 WBC 4.7 RBC 4.15 Hgb 13.2 Hct 39.0 MCV 94 MCH 31.7 MCHC 33.8 RDW 14.2 H Plt Count 77 L Seg Neutrophils % 56.7 Lymphocytes % 32.4 Monocytes % 10.0 Eosinophils % 0.4 Basophils % 0.5 Absolute Neutrophils 2.7 Absolute Lymphocytes 1.5 Absolute Monocytes 0.5 Absolute Eosinophils 0.0 Absolute Basophils 0.0 Sodium 139.9 Potassium 4.1 Chloride 106 Carbon Dioxide 27 Anion Gap 7 BUN 14 Creatinine 1.21 Est GFR ( Amer) 55 L Est GFR (Non-Af Amer) 45 L Glucose 226 H Lactic Acid 2.7 H Calcium 8.6 Total Bilirubin 0.6 AST 108 H ALT 72 H Alkaline Phosphatase 60 Total Protein 5.7 L Albumin 2.8 L 03/22/17 04:10 WBC 4.5 RBC 4.04 Hgb 13.0 Hct 37.6 MCV 93 MCH 32.1 MCHC 34.5 RDW 13.5 Plt Count 83 L Seg Neutrophils % Lymphocytes % Monocytes % Eosinophils % Basophils % Absolute Neutrophils Absolute Lymphocytes Absolute Monocytes Absolute Eosinophils Absolute Basophils Sodium Potassium Chloride Carbon Dioxide Anion Gap BUN Creatinine Est GFR ( Amer) Est GFR (Non-Af Amer) Glucose Lactic Acid Calcium Total Bilirubin AST ALT Alkaline Phosphatase Total Protein Albumin 03/19/17 01:25 Clean Catch Midstream Legionella Urinary Antigen - Final Impressions: Chest CT 03/19/17 00:00 IMPRESSION: Atelectasis or residual pneumonia in the lingula. Prominent epicardial fat pad. No evidence of underlying lung mass. Chest X-Ray 03/20/17 00:00 IMPRESSION: Minimal left basilar atelectasis. Abdomen/Pelvis CT 03/21/17 00:00 IMPRESSION: Ascending and transverse colitis with pericolonic fat stranding common mucosal edema common bowel wall thickening. Progressed slightly since previous. Large calcified gallstone. Cirrhotic liver. Perisplenic varices. Possible dermoid in the left ovary. Assessment & Plan - Diagnosis (1) Colitis Is this a current diagnosis for this admission?: Yes Plan: Doing well with conservative measures. Abdominal exam looks good today. I do not see any role for surgical intervention. Recommend gastroenterology consultation either as an inpatient or as an outpatient if not available inpatient. Surgicalist service signing off. Call us for any problems
[2017-03-22] MEDS: METRONIDAZOLE 500 MG/NS RTU 100 ML IV SCH ×3 (11:54→23:22)
[2017-03-22] MEDS: LOSARTAN POTASSIUM 50 MG TABLET PO SCH (11:54)
[2017-03-22] MEDS: HYDROXYZINE PAMOATE 25 MG CAPSULE PO SCH (11:54)
[2017-03-22] MEDS: RINGERS SOLUTION,LACTATED 1,000 ML IV PRN (13:34)
[2017-03-22] MEDS: LEVOFLOXACIN 500 MG TABLET PO SCH (17:31)
--- NOTE | 2017-03-22 18:38 | PDOC PROGRESS REPORT ---
Subjective Progress Note for:: 03/22/17 Subjective:: Patient admitted with hypoxic respiratory failure thought to be secondary to pneumonia. CT scan of the chest reveals residual pneumonia in the lingula. CT of the abdomen done reveals a possible pelvic mass and MRI has been suggested for further evaluation which has been ordered she also has cirrhosis of the liver with portal hypertension. Patient looks brighter and better today. No diarrhea, abdominal pain is improved Reason For Visit: SEPSIS Physical Exam Vital Signs: Temp Pulse Resp BP Pulse Ox 98.5 F 78 16 120/55 L 92 03/22/17 16:29 03/22/17 16:29 03/22/17 16:29 03/22/17 16:29 03/22/17 16:29 Pulse Oximeter Continuous Start: 03/18/17 22: 08 Freq: RTQ4 Status: Active Document 03/22/17 16:12 TPO (Rec: 03/22/17 16:19 TPO [email or web address]) Pulse Oximetry Assessment Oxygen Saturation (92-100) 94 Oxygen Delivery Method Room Air Fraction of Inspired Oxygen (FIO2) 21 Equipment Usage Equipment in Use Continuous SpO2 Machine # 14 Intake & Output 03/21/17 03/22/17 03/23/17 06:59 06:59 06:59 Intake Total 3258 4361 266 Output Total 1650 4300 900 Balance 1608 61 -634 Weight 86.1 kg 88.2 kg General appearance: PRESENT: no acute distress, well-developed, well-nourished Head exam: PRESENT: atraumatic, normocephalic Eye exam: PRESENT: conjunctiva pink, EOMI, PERRLA. ABSENT: scleral icterus Ear exam: PRESENT: normal external ear exam Mouth exam: PRESENT: moist, tongue midline Neck exam: ABSENT: carotid bruit, JVD, lymphadenopathy, thyromegaly Respiratory exam: PRESENT: clear to auscultation betty. ABSENT: rales, rhonchi, wheezes Cardiovascular exam: PRESENT: RRR. ABSENT: diastolic murmur, rubs, systolic murmur Pulses: PRESENT: normal dorsalis pedis pul Vascular exam: PRESENT: normal capillary refill GI/Abdominal exam: PRESENT: normal bowel sounds, soft, tenderness - LLQ. ABSENT : distended, guarding, mass, organolmegaly, rebound Rectal exam: PRESENT: deferred Extremities exam: PRESENT: full ROM. ABSENT: calf tenderness, clubbing, pedal edema Neurological exam: PRESENT: alert, awake, oriented to person, oriented to place , oriented to time, oriented to situation, CN II-XII grossly intact. ABSENT: motor sensory deficit Psychiatric exam: PRESENT: appropriate affect, normal mood. ABSENT: homicidal ideation, suicidal ideation Skin exam: PRESENT: dry, intact, warm. ABSENT: cyanosis, rash Results Laboratory Results: 03/22/17 04:10 03/21/17 16:00 03/22/17 04:10 WBC 4.5 RBC 4.04 Hgb 13.0 Hct 37.6 MCV 93 MCH 32.1 MCHC 34.5 RDW 13.5 Plt Count 83 L 03/20/17 14:45 Clean Catch Midstream Urine Culture - Final NO GROWTH 2 DAYS Impressions: Chest CT 03/19/17 00:00 IMPRESSION: Atelectasis or residual pneumonia in the lingula. Prominent epicardial fat pad. No evidence of underlying lung mass. Chest X-Ray 03/20/17 00:00 IMPRESSION: Minimal left basilar atelectasis. Abdomen/Pelvis CT 03/21/17 00:00 IMPRESSION: Ascending and transverse colitis with pericolonic fat stranding common mucosal edema common bowel wall thickening. Progressed slightly since previous. Large calcified gallstone. Cirrhotic liver. Perisplenic varices. Possible dermoid in the left ovary. Assessment & Plan - Diagnosis (1) Abdominal pain Qualifiers: Abdominal location: generalized Qualified Code(s): R10.84 - Generalized abdominal pain Is this a current diagnosis for this admission?: Yes (2) Acute respiratory failure with hypoxemia Is this a current diagnosis for this admission?: Yes Plan: Continues to improve (3) CKD (chronic kidney disease) stage 3, GFR 30-59 ml/min Is this a current diagnosis for this admission?: Yes (4) COPD (chronic obstructive pulmonary disease) Qualifiers: COPD type: COPD with acute exacerbation Qualified Code(s): J44.1 - Chronic obstructive pulmonary disease with (acute) exacerbation Is this a current diagnosis for this admission?: Yes (5) Cirrhosis Qualifiers: Hepatic cirrhosis type: unspecified hepatic cirrhosis Is this a current diagnosis for this admission?: Yes Plan: No acute intervention at this time, no evidence of SBP (6) Fever Qualifiers: Fever type: unspecified Qualified Code(s): R50.9 - Fever, unspecified Is this a current diagnosis for this admission?: Yes Plan: This is currently resolved (7) RML pneumonia Qualifiers: Pneumonia type: due to unspecified organism Qualified Code(s): J18.1 - Lobar pneumonia, unspecified organism Is this a current diagnosis for this admission?: Yes (8) Sepsis Qualifiers: Sepsis type: sepsis due to unspecified organism Qualified Code(s): A41.9 - Sepsis, unspecified organism Is this a current diagnosis for this admission?: Yes (9) Severe low back pain Is this a current diagnosis for this admission?: Yes (10) Colitis Is this a current diagnosis for this admission?: Yes Plan: Flagyl IV added to her regimen. Patient feels clinically better. Will continue both antibiotics for now - Time Time Spent with patient: 15-24 minutes Medications reviewed and adjusted accordingly: Yes Anticipated discharge: Home - Inpatient Certification Medical Necessity: Need for IV Antibiotics
[2017-03-23] MEDS: IPRATROPIUM/ALBUTEROL 0.5-2.5 MG/3 ML AMPUL NEB SCH ×3 (00:14→16:06)
[2017-03-23] MEDS: RINGERS SOLUTION,LACTATED 1,000 ML IV PRN ×2 (04:17→22:38)
[2017-03-23] MEDS: LANSOPRAZOLE 15 MG TAB.RAP.DR PO SCH (06:03)
[2017-03-23] MEDS: METRONIDAZOLE 500 MG/NS RTU 100 ML IV SCH ×3 (06:04→18:05)
[2017-03-23] MEDS: GABAPENTIN 400 MG CAPSULE PO SCH ×3 (06:04→22:31)
[2017-03-23] MEDS: FLUTICASONE/SALMETEROL DISKUS 250-50 MCG/DOSE IH SCH ×2 (10:24→18:05)
[2017-03-23] MEDS: ESCITALOPRAM OXALATE 10 MG TABLET PO SCH (10:25)
[2017-03-23] MEDS: HYDROXYZINE PAMOATE 25 MG CAPSULE PO SCH (10:25)
[2017-03-23] MEDS: LOSARTAN POTASSIUM 50 MG TABLET PO SCH (10:25)
[2017-03-23] MEDS: HYDROCHLOROTHIAZIDE 12.5 MG CAPSULE PO SCH (10:25)
[2017-03-23] MEDS: GUAIFENESIN 600 MG TABLET.SA PO SCH ×2 (10:25→22:31)
[2017-03-23] MEDS: INSULIN GLARGINE,HUM.REC.ANLOG 300 UNIT/3 ML INSULN.PEN SUBCUT SCH (10:26)
[2017-03-23] MEDS: LACTULOSE SYRUP 20 GM/30 ML UDCUP PO SCH (10:26)
[2017-03-23] MEDS: FAMOTIDINE 20 MG TABLET PO SCH ×2 (10:26→22:31)
[2017-03-23] MEDS: ACETAMINOPHEN 325 MG TABLET PO PRN (12:52)
[2017-03-23] MEDS: INSULIN LISPRO 100 UNIT/ML 3 ML VIAL SUBCUT PRN ×3 (12:55→22:32)
--- NOTE | 2017-03-23 15:44 | PDOC PROGRESS REPORT ---
Subjective Progress Note for:: 03/23/17 Subjective:: Patient admitted with hypoxic respiratory failure thought to be secondary to pneumonia. CT scan of the chest reveals residual pneumonia in the lingula. CT of the abdomen done reveals a possible pelvic mass and MRI has been suggested for further evaluation which has been ordered she also has cirrhosis of the liver with portal hypertension. Patient sitting up in bed. She feels a lot better. No fever or abdominal pain Reason For Visit: SEPSIS Physical Exam Vital Signs: Temp Pulse Resp BP Pulse Ox 98.0 F 82 18 150/71 H 96 03/23/17 12:43 03/23/17 14:00 03/23/17 12:43 03/23/17 12:43 03/23/17 12:43 Pulse Oximeter Continuous Start: 03/18/17 22: 08 Freq: RTQ4 Status: Active Document 03/23/17 12:00 [facility] [place] 03/23/17 14:07 [facility] [email or web address][place] Pulse Oximetry Assessment Oxygen Saturation (92-100) 94 Oxygen Delivery Method Room Air Fraction of Inspired Oxygen (FIO2) 21 Equipment Usage Equipment in Use Continuous SpO2 Machine # N 14 Intake & Output 03/22/17 03/23/17 03/24/17 06:59 06:59 06:59 Intake Total 4361 3816 695 Output Total 4300 3700 900 Balance 61 116 -205 Weight 88.2 kg 87.8 kg General appearance: PRESENT: no acute distress, well-developed, well-nourished Head exam: PRESENT: atraumatic, normocephalic Eye exam: PRESENT: conjunctiva pink, EOMI, PERRLA. ABSENT: scleral icterus Ear exam: PRESENT: normal external ear exam Mouth exam: PRESENT: moist, tongue midline Neck exam: ABSENT: carotid bruit, JVD, lymphadenopathy, thyromegaly Respiratory exam: PRESENT: clear to auscultation betty. ABSENT: rales, rhonchi, wheezes Cardiovascular exam: PRESENT: RRR. ABSENT: diastolic murmur, rubs, systolic murmur Pulses: PRESENT: normal dorsalis pedis pul Vascular exam: PRESENT: normal capillary refill GI/Abdominal exam: PRESENT: normal bowel sounds, soft, tenderness - mild LLQ. ABSENT: distended, guarding, mass, organolmegaly, rebound Rectal exam: PRESENT: deferred Extremities exam: PRESENT: full ROM. ABSENT: calf tenderness, clubbing, pedal edema Neurological exam: PRESENT: alert, awake, oriented to person, oriented to place , oriented to time, oriented to situation, CN II-XII grossly intact. ABSENT: motor sensory deficit Psychiatric exam: PRESENT: appropriate affect, normal mood. ABSENT: homicidal ideation, suicidal ideation Skin exam: PRESENT: dry, intact, warm. ABSENT: cyanosis, rash Results Laboratory Results: 03/22/17 04:10 03/21/17 16:00 03/20/17 14:45 Clean Catch Midstream Urine Culture - Final NO GROWTH 2 DAYS Impressions: Chest CT 03/19/17 00:00 IMPRESSION: Atelectasis or residual pneumonia in the lingula. Prominent epicardial fat pad. No evidence of underlying lung mass. Chest X-Ray 03/20/17 00:00 IMPRESSION: Minimal left basilar atelectasis. Abdomen/Pelvis CT 03/21/17 00:00 IMPRESSION: Ascending and transverse colitis with pericolonic fat stranding common mucosal edema common bowel wall thickening. Progressed slightly since previous. Large calcified gallstone. Cirrhotic liver. Perisplenic varices. Possible dermoid in the left ovary. Assessment & Plan - Diagnosis (1) Abdominal pain Qualifiers: Abdominal location: generalized Qualified Code(s): R10.84 - Generalized abdominal pain Is this a current diagnosis for this admission?: Yes Plan: Improved likely from Colitis (2) Acute respiratory failure with hypoxemia Is this a current diagnosis for this admission?: Yes Plan: Continues to improve (3) CKD (chronic kidney disease) stage 3, GFR 30-59 ml/min Is this a current diagnosis for this admission?: Yes Plan: Stable (4) COPD (chronic obstructive pulmonary disease) Qualifiers: COPD type: COPD with acute exacerbation Qualified Code(s): J44.1 - Chronic obstructive pulmonary disease with (acute) exacerbation Is this a current diagnosis for this admission?: Yes (5) Cirrhosis Qualifiers: Hepatic cirrhosis type: unspecified hepatic cirrhosis Is this a current diagnosis for this admission?: Yes Plan: No acute intervention at this time, no evidence of SBP (6) Fever Qualifiers: Fever type: unspecified Qualified Code(s): R50.9 - Fever, unspecified Is this a current diagnosis for this admission?: Yes Plan: This is currently resolved (7) RML pneumonia Qualifiers: Pneumonia type: due to unspecified organism Qualified Code(s): J18.1 - Lobar pneumonia, unspecified organism Is this a current diagnosis for this admission?: Yes Plan: She is on oral Levaquin and continues to improve (8) Sepsis Qualifiers: Sepsis type: sepsis due to unspecified organism Qualified Code(s): A41.9 - Sepsis, unspecified organism (9) Severe low back pain Is this a current diagnosis for this admission?: Yes Plan: Back pain is resolved. CT scan done shows no direct etiology for back pain (10) Colitis Is this a current diagnosis for this admission?: Yes Plan: Flagyl IV added to her regimen. She seems to have responded well to this Patient feels clinically better. Will continue both antibiotics for now - Time Time Spent with patient: 15-24 minutes Medications reviewed and adjusted accordingly: Yes Anticipated discharge: Home Within: within 48 hours - Inpatient Certification Medical Necessity: Need for IV Antibiotics, Risk of Complication if Not Cared For in Hospital - Bowel perforation
[2017-03-23] MEDS: LEVOFLOXACIN 500 MG TABLET PO SCH (18:05)
[2017-03-24] MEDS: METRONIDAZOLE 500 MG/NS RTU 100 ML IV SCH ×5 (00:03→23:49)
[2017-03-24] MEDS: IPRATROPIUM/ALBUTEROL 0.5-2.5 MG/3 ML AMPUL NEB SCH ×4 (00:04→23:15)
[2017-03-24 02:27] LABS: CREATINE KINASE MB 1.03 ng/mL (<4.55); TROPONIN I 0.017 ng/mL
[2017-03-24] MEDS: LANSOPRAZOLE 15 MG TAB.RAP.DR PO SCH (06:57)
[2017-03-24] MEDS: GABAPENTIN 400 MG CAPSULE PO SCH ×3 (06:57→21:53)
[2017-03-24] MEDS: INSULIN LISPRO 100 UNIT/ML 3 ML VIAL SUBCUT PRN ×4 (07:50→22:28)
[2017-03-24 08:19] LABS: CREATINE KINASE MB 0.86 ng/mL (<4.55); TROPONIN I 0.024 ng/mL
--- NOTE | 2017-03-24 08:34 | EKG REPORT ---
SEVERITY:- BORDERLINE ECG - SINUS RHYTHM BORDERLINE T ABNORMALITIES, INFERIOR LEADS : Confirmed by: Reinier Luevano MD 24-Mar-2017 08:34:29
[2017-03-24] MEDS: INSULIN GLARGINE,HUM.REC.ANLOG 300 UNIT/3 ML INSULN.PEN SUBCUT SCH (10:16)
[2017-03-24] MEDS: ENOXAPARIN SODIUM INJ 30 MG/0.3 ML DISP.SYRIN SUBCUT SCH (10:19)
[2017-03-24] MEDS: HYDROCHLOROTHIAZIDE 12.5 MG CAPSULE PO SCH (10:21)
[2017-03-24] MEDS: FLUTICASONE/SALMETEROL DISKUS 250-50 MCG/DOSE IH SCH ×2 (10:21→17:26)
[2017-03-24] MEDS: ESCITALOPRAM OXALATE 10 MG TABLET PO SCH (10:21)
[2017-03-24] MEDS: GUAIFENESIN 600 MG TABLET.SA PO SCH ×2 (10:21→21:53)
[2017-03-24] MEDS: LACTULOSE SYRUP 20 GM/30 ML UDCUP PO SCH (10:23)
[2017-03-24] MEDS: LOSARTAN POTASSIUM 50 MG TABLET PO SCH (10:23)
[2017-03-24] MEDS: HYDROXYZINE PAMOATE 25 MG CAPSULE PO SCH (10:23)
[2017-03-24] MEDS: FAMOTIDINE 20 MG TABLET PO SCH ×2 (10:23→21:53)
--- NOTE | 2017-03-24 13:42 | PDOC PROGRESS REPORT ---
Subjective Progress Note for:: 03/24/17 Subjective:: Patient admitted with hypoxic respiratory failure thought to be secondary to pneumonia. CT scan of the chest reveals residual pneumonia in the lingula. CT of the abdomen done reveals a possible pelvic mass and MRI has been suggested for further evaluation which has been ordered she also has cirrhosis of the liver with portal hypertension. Patient sleeping quietly No fever or abdominal pain Reason For Visit: SEPSIS Physical Exam Vital Signs: Temp Pulse Resp BP Pulse Ox 98.9 F 84 20 134/61 H 96 03/24/17 12:08 03/24/17 12:08 03/24/17 12:08 03/24/17 12:08 03/24/17 12:08 Pulse Oximeter Continuous Start: 03/18/17 22: 08 Freq: RTQ4 Status: Active Document 03/24/17 11:41 [facility] (Rec: 03/24/17 11:41 [facility] [email or web address]) Pulse Oximetry Assessment Oxygen Saturation (92-100) 94 Oxygen Flow Rate (L/min) 2 Oxygen Delivery Method Nasal Cannula Equipment Usage Equipment in Use Continuous SpO2 Machine # 14 Intake & Output 03/23/17 03/24/17 03/25/17 06:59 06:59 06:59 Intake Total 3816 3271 118 Output Total 3700 1501 0 Balance 116 1770 118 Weight 87.8 kg 88.2 kg General appearance: PRESENT: no acute distress Head exam: PRESENT: atraumatic Eye exam: PRESENT: conjunctiva pink, EOMI, PERRLA. ABSENT: scleral icterus Ear exam: PRESENT: normal external ear exam Mouth exam: PRESENT: moist, tongue midline Respiratory exam: PRESENT: clear to auscultation betty. ABSENT: rales, rhonchi, wheezes Cardiovascular exam: PRESENT: RRR. ABSENT: diastolic murmur, rubs, systolic murmur Vascular exam: PRESENT: normal capillary refill GI/Abdominal exam: PRESENT: normal bowel sounds, soft. ABSENT: distended, guarding, mass, organolmegaly, rebound, tenderness Rectal exam: PRESENT: deferred Extremities exam: PRESENT: full ROM. ABSENT: calf tenderness, clubbing, pedal edema Neurological exam: PRESENT: alert, awake, oriented to person, oriented to place , oriented to time, oriented to situation, CN II-XII grossly intact. ABSENT: motor sensory deficit Results Laboratory Results: 03/22/17 04:10 03/21/17 16:00 03/24/17 03/24/17 03/24/17 01:44 01:44 07:35 Creatine Kinase 132 103 CK-MB (CK-2) 1.03 Troponin I 0.017 03/24/17 07:35 Creatine Kinase CK-MB (CK-2) 0.86 Troponin I 0.024 Impressions: Chest CT 03/19/17 00:00 IMPRESSION: Atelectasis or residual pneumonia in the lingula. Prominent epicardial fat pad. No evidence of underlying lung mass. Chest X-Ray 03/20/17 00:00 IMPRESSION: Minimal left basilar atelectasis. Abdomen/Pelvis CT 03/21/17 00:00 IMPRESSION: Ascending and transverse colitis with pericolonic fat stranding common mucosal edema common bowel wall thickening. Progressed slightly since previous. Large calcified gallstone. Cirrhotic liver. Perisplenic varices. Possible dermoid in the left ovary. Assessment & Plan - Diagnosis (1) Abdominal pain Qualifiers: Abdominal location: generalized Qualified Code(s): R10.84 - Generalized abdominal pain Is this a current diagnosis for this admission?: Yes (2) Acute respiratory failure with hypoxemia Is this a current diagnosis for this admission?: Yes Plan: Continues to improve (3) CKD (chronic kidney disease) stage 3, GFR 30-59 ml/min Is this a current diagnosis for this admission?: Yes Plan: Stable (4) COPD (chronic obstructive pulmonary disease) Qualifiers: COPD type: COPD with acute exacerbation Qualified Code(s): J44.1 - Chronic obstructive pulmonary disease with (acute) exacerbation Is this a current diagnosis for this admission?: Yes (5) Cirrhosis Qualifiers: Hepatic cirrhosis type: unspecified hepatic cirrhosis Is this a current diagnosis for this admission?: Yes Plan: No acute intervention at this time, no evidence of SBP (6) Fever Qualifiers: Fever type: unspecified Qualified Code(s): R50.9 - Fever, unspecified Is this a current diagnosis for this admission?: Yes Plan: This is currently resolved (7) RML pneumonia Qualifiers: Pneumonia type: due to unspecified organism Qualified Code(s): J18.1 - Lobar pneumonia, unspecified organism Is this a current diagnosis for this admission?: Yes Plan: She is on oral Levaquin and continues to improve (8) Sepsis Qualifiers: Sepsis type: sepsis due to unspecified organism Qualified Code(s): A41.9 - Sepsis, unspecified organism Is this a current diagnosis for this admission?: Yes Plan: Resolve (9) Severe low back pain Is this a current diagnosis for this admission?: Yes (10) Colitis Is this a current diagnosis for this admission?: Yes Plan: Cont to Levaquin and Flagyl IV - Time Time Spent with patient: 15-24 minutes Smoking Cessation Education: 3 to 10 minutes Anticipated discharge: Home - Inpatient Certification Medical Necessity: Need for IV Antibiotics - Plan Summary Plan Summary: Possibly home in am if she remains stable
[2017-03-24 14:37] LABS: CREATINE KINASE MB 0.7 ng/mL (<4.55); TROPONIN I 0.026 ng/mL
[2017-03-24] MEDS: LEVOFLOXACIN 500 MG TABLET PO SCH (17:26)
[2017-03-25 05:01] LABS: ABSOLUTE EOSINOPHILS # (AUTO) 0.1 10^3/uL (0.0-0.6); ABSOLUTE LYMPHOCYTES (AUTO) 1.7 10^3/uL (0.5-4.7); ABSOLUTE MONOCYTES (AUTO) 0.6 10^3/uL (0.1-1.4); ABSOLUTE NEUT (AUTO) 3.4 10^3/uL (1.7-8.2); BASOPHILS % (AUTO) 0.3 % (0-2); EOSINOPHILS % (AUTO) 1.9 % (0-6); HEMATOCRIT 37.2 % (36.0-47.0); HEMOGLOBIN 12.9 g/dL (12.0-15.5); LYMPHOCYTES % (AUTO) 28.7 % (13-45); MEAN CORPUSCULAR HEMOGLOBIN 32.1 pg (27.0-33.4); MEAN CORPUSCULAR HGB CONC 34.8 g/dL (32.0-36.0); MEAN CORPUSCULAR VOLUME 92 fl (80-97); MONOCYTES % (AUTO) 9.7 % (3-13); RED BLOOD COUNT 4.03 10^6/uL (3.72-5.28); RED CELL DISTRIBUTION WIDTH 13.8 % (11.5-14.0); SEGMENTED NEUTROPHILS % (AUTO) 59.4 % (42-78); TOTAL CELLS COUNTED % (AUTO) 100 %; WHITE BLOOD COUNT 5.8 10^3/uL (4.0-10.5)
[2017-03-25] MEDS: GABAPENTIN 400 MG CAPSULE PO SCH (05:18)
[2017-03-25] MEDS: LANSOPRAZOLE 15 MG TAB.RAP.DR PO SCH (05:18)
[2017-03-25] MEDS: METRONIDAZOLE 500 MG/NS RTU 100 ML IV SCH ×2 (05:18→11:34)
[2017-03-25 05:23] LABS: ANION GAP 9 (5-19); BLOOD UREA NITROGEN 8 mg/dL (7-20); CALCIUM 8.7 mg/dL (8.4-10.2); CARBON DIOXIDE 27 mmol/L (22-30); CHLORIDE 106 mmol/L (98-107); GLUCOSE 139 mg/dL (75-110); POTASSIUM 3.3 mmol/L (3.6-5.0); SODIUM 141.8 mmol/L (137-145)
[2017-03-25 05:29] LABS: PLATELET COUNT 85 10^3/uL (150-450)
[2017-03-25] MEDS: IPRATROPIUM/ALBUTEROL 0.5-2.5 MG/3 ML AMPUL NEB SCH (07:38)
[2017-03-25] MEDS ORDERED: INSULIN GLARGINE,HUM.REC.ANLOG 300 UNIT/3 ML INSULN.PEN SUBCUT SCH (10:00)
[2017-03-25] MEDS: FLUTICASONE/SALMETEROL DISKUS 250-50 MCG/DOSE IH SCH (10:28)
[2017-03-25] MEDS: ESCITALOPRAM OXALATE 10 MG TABLET PO SCH (10:29)
[2017-03-25] MEDS: GUAIFENESIN 600 MG TABLET.SA PO SCH (10:29)
[2017-03-25] MEDS: HYDROXYZINE PAMOATE 25 MG CAPSULE PO SCH (10:29)
[2017-03-25] MEDS: FAMOTIDINE 20 MG TABLET PO SCH (10:29)
[2017-03-25] MEDS: LOSARTAN POTASSIUM 50 MG TABLET PO SCH (10:29)
[2017-03-25] MEDS: HYDROCHLOROTHIAZIDE 12.5 MG CAPSULE PO SCH (10:29)
[2017-03-25] MEDS: LACTULOSE SYRUP 20 GM/30 ML UDCUP PO SCH (10:30)
[2017-03-25] MEDS: ENOXAPARIN SODIUM INJ 30 MG/0.3 ML DISP.SYRIN SUBCUT SCH (10:30)
[2017-03-25 10:58] VITALS: BP 136/65
--- NOTE | 2017-03-25 12:21 | PDOC DISCHARGE SUMMARY ---
General - Admit/Disc Date/PCP Admission Date/Primary Care Provider: 03/18/17 21:45 [facility] AG[facility], DO Discharge Date: 03/25/17 - Discharge Diagnosis (1) Colitis Is this a current diagnosis for this admission?: Yes (2) RML pneumonia Is this a current diagnosis for this admission?: Yes (3) Acute respiratory failure with hypoxemia Is this a current diagnosis for this admission?: Yes (4) Abdominal pain Is this a current diagnosis for this admission?: Yes (5) CKD (chronic kidney disease) stage 3, GFR 30-59 ml/min Is this a current diagnosis for this admission?: Yes (6) COPD (chronic obstructive pulmonary disease) Is this a current diagnosis for this admission?: Yes (7) Cirrhosis Is this a current diagnosis for this admission?: Yes (8) Fever Is this a current diagnosis for this admission?: Yes (9) Sepsis Is this a current diagnosis for this admission?: Yes (10) Diabetes Is this a current diagnosis for this admission?: Yes (11) Hypokalemia Is this a current diagnosis for this admission?: Yes - Additional Information Resuscitation Status: Full Code Discharge Diet: Diabetic Discharge Activity: Activity As Tolerated, Balance Activity w/Rest, Energy Conservation Prescriptions: Levofloxacin [Levaquin 500 mg Tablet] 500 mg PO QPM 5 Days tablet Metronidazole [Flagyl 500 mg Tablet] 500 mg PO Q6 #28 tablet Home Medications: Clotrimazole 1 applic TOP BIDP PRN 03/19/17 Escitalopram Oxalate [Lexapro 10 mg Tablet] 10 mg PO DAILY 03/19/17 Fluticasone/Salmeterol [Advair 250-50 Diskus 28 dose] 1 puff IH BID 03/19/17 Gabapentin [Neurontin 400 mg Capsule] 400 mg PO Q8 03/19/17 Hydrochlorothiazide [Hydrodiuril 12.5 mg Capsule] 12.5 mg PO DAILY 03/19/17 Hydroxyzine HCl [Atarax 25 mg Tablet] 25 mg PO DAILY 03/19/17 Insulin Aspart [Novolog Insulin (Aspart) 100 unit/mL] 0 units SQ .PERSLIDINGSCALE 03/19/17 Lactulose [Constulose] 15 ml PO BID 03/19/17 Losartan Potassium [Cozaar 100 mg Tablet] 100 mg PO DAILY 03/19/17 Pantoprazole Sodium [Protonix] 20 mg PO DAILY 03/19/17 Phenylephrine HCl [Sudafed PE] 10 mg PO DAILYP PRN 03/19/17 Guaifenesin [Mucinex Sr 600 mg Tablet.sa] 600 mg PO Q12 tablet.sa 03/25/17 Insulin Glargine,Hum.rec.anlog [Lantus Insulin 100 Unit/mL] 25 unit SUBCUT DAILY insuln.pen 03/25/17 Levofloxacin [Levaquin 500 mg Tablet] 500 mg PO QPM 5 Days tablet 03/25/17 Metronidazole [Flagyl 500 mg Tablet] 500 mg PO Q6 #28 tablet 03/25/17 History of Present Illness History of Present Illness: ELISSA ROBERTS is a 61 year old female admitted with hypoxic respiratory failure thought to be secondary to pneumonia. She was started on intravenous antibiotics and appeared to improve. Hospital Course Hospital Course: She subsequently developed abdominal pain and further workup done including CT scan suggested possible colitis so she was started on intravenous Flagyl along with the Levaquin for pneumonia. Patient responded pretty well to this with defervescence of fever and resolution of abdominal pain. She was initially encephalopathic due to the acute infection but this also cleared. She appears to be back to her baseline mental status. Her blood sugars were relatively well controlled and in fact her insulin requirement was minimal compared to outpatient insulin use. She was on less than 20 units of Lantus while in hospital as opposed to 70 units as outpatient. Patient was seen by the surgical team due to the abdominal pain and colitis but ultimately neurosurgical intervention was needed. Follow-up with GI however is suggested. She does have a history of cirrhosis of the liver although there was no evidence of any SBP or any acute complication related to this. Physical Exam Vital Signs: Temp Pulse Resp BP Pulse Ox 98.1 F 82 16 136/65 H 95 03/25/17 10:38 03/25/17 10:38 03/25/17 10:38 03/25/17 10:38 03/25/17 10:38 Pulse Oximeter Continuous Start: 03/18/17 22: 08 Freq: RTQ4 Status: Active Document 03/25/17 07:39 [facility] (Rec: 03/25/17 07:43 JDR [email or web address]) Pulse Oximetry Assessment Oxygen Saturation (92-100) 95 Oxygen Flow Rate (L/min) 2 Oxygen Delivery Method Nasal Cannula Fraction of Inspired Oxygen (FIO2) 28 Equipment Usage Equipment in Use Continuous SpO2 Machine # [id number] Intake & Output 03/24/17 03/25/17 03/26/17 06:59 06:59 06:59 Intake Total 3271 1976 591 Output Total 1501 2200 800 Balance 6040 -459 -541 Weight 88.2 kg 86.8 kg General appearance: PRESENT: no acute distress, well-developed, well-nourished Head exam: PRESENT: atraumatic, normocephalic Eye exam: PRESENT: conjunctiva pink, EOMI, PERRLA. ABSENT: scleral icterus Ear exam: PRESENT: normal external ear exam Mouth exam: PRESENT: moist, tongue midline Neck exam: ABSENT: carotid bruit, JVD, lymphadenopathy, thyromegaly Respiratory exam: PRESENT: clear to auscultation betty. ABSENT: rales, rhonchi, wheezes Cardiovascular exam: PRESENT: RRR. ABSENT: diastolic murmur, rubs, systolic murmur Pulses: PRESENT: normal dorsalis pedis pul Vascular exam: PRESENT: normal capillary refill GI/Abdominal exam: PRESENT: normal bowel sounds, soft. ABSENT: distended, guarding, mass, organolmegaly, rebound, tenderness Rectal exam: PRESENT: deferred Extremities exam: PRESENT: full ROM. ABSENT: calf tenderness, clubbing, pedal edema Neurological exam: PRESENT: alert, awake, oriented to person, oriented to place , oriented to time, oriented to situation, CN II-XII grossly intact. ABSENT: motor sensory deficit Psychiatric exam: PRESENT: appropriate affect, normal mood. ABSENT: homicidal ideation, suicidal ideation Skin exam: PRESENT: dry, intact, warm. ABSENT: cyanosis, rash Results Laboratory Results: 03/25/17 04:12 03/25/17 04:12 03/25/17 03/25/17 04:12 04:12 WBC 5.8 RBC 4.03 Hgb 12.9 Hct 37.2 MCV 92 MCH 32.1 MCHC 34.8 RDW 13.8 Plt Count 85 L Seg Neutrophils % 59.4 Lymphocytes % 28.7 Monocytes % 9.7 Eosinophils % 1.9 Basophils % 0.3 Absolute Neutrophils 3.4 Absolute Lymphocytes 1.7 Absolute Monocytes 0.6 Absolute Eosinophils 0.1 Absolute Basophils 0.0 Sodium 141.8 Potassium 3.3 L Chloride 106 Carbon Dioxide 27 Anion Gap 9 BUN 8 Creatinine 0.94 Est GFR ( Amer) > 60 Est GFR (Non-Af Amer) > 60 Glucose 139 H Calcium 8.7 03/20/17 11:45 Blood Blood Culture - Final NO GROWTH IN 5 DAYS 03/24/17 03/24/17 03/24/17 01:44 01:44 07:35 Creatine Kinase 132 103 CK-MB (CK-2) 1.03 Troponin I 0.017 03/24/17 03/24/17 03/24/17 07:35 14:04 14:04 Creatine Kinase 92 CK-MB (CK-2) 0.86 0.70 Troponin I 0.024 0.026 Impressions: Chest CT 03/19/17 00:00 IMPRESSION: Atelectasis or residual pneumonia in the lingula. Prominent epicardial fat pad. No evidence of underlying lung mass. Chest X-Ray 03/20/17 00:00 IMPRESSION: Minimal left basilar atelectasis. Abdomen/Pelvis CT 03/21/17 00:00 IMPRESSION: Ascending and transverse colitis with pericolonic fat stranding common mucosal edema common bowel wall thickening. Progressed slightly since previous. Large calcified gallstone. Cirrhotic liver. Perisplenic varices. Possible dermoid in the left ovary. Plan Discharge Plan: Patient is advised to follow-up with her primary care physician in about 1 week as well as referral to GI suggested for further evaluation of colitis Time Spent: Greater than 30 Minutes
[2017-03-25] MEDS ORDERED: POTASSIUM CHLORIDE 10 MEQ TABLET.SA PO ONE (13:00)
== END 2017-03-25 13:08 | disposition home or self-care (01) | DRG 871 ==
LOC: ER 19:42 → EH 21:45 → 3N 03-19 00:56
PROVIDERS: ADMIT Internal Medicine; ATTEND Internal Medicine
PROC: 3E0F73Z Introduction of Anti-inflammatory into Respiratory Tract, Via Natural or Artificial Opening (ICD-10-PCS; 2017-03-19)
PROC: 3E0234Z Introduction of Serum, Toxoid and Vaccine into Muscle, Percutaneous Approach (ICD-10-PCS; principal; 2017-03-25)
DX: A41.9 Sepsis, unspecified organism (principal); J96.01 Acute respiratory failure with hypoxia; G93.41 Metabolic encephalopathy; I85.10 Secondary esophageal varices without bleeding; K76.6 Portal hypertension; K52.9 Noninfective gastroenteritis and colitis, unspecified; I12.9 Hypertensive chronic kidney disease with stage 1 through stage 4 chronic kidney disease, or unspecified chronic kidney disease; E11.22 Type 2 diabetes mellitus with diabetic chronic kidney disease; N18.9 Chronic kidney disease, unspecified; M19.90 Unspecified osteoarthritis, unspecified site; N18.3 Chronic kidney disease, stage 3 (moderate); J44.9 Chronic obstructive pulmonary disease, unspecified; K74.60 Unspecified cirrhosis of liver; E87.6 Hypokalemia; K80.20 Calculus of gallbladder without cholecystitis without obstruction; M54.5 Low back pain; Z79.4 Long term (current) use of insulin; Z23 Encounter for immunization
CPT/HCPCS: 36415; 71045; 71046; 71260; 72131; 74176; 74177; 80048; 80053; 80076; 81001; 82140; 82550; 82553; 82803; 82962; 83036; 83605; 83690; 83735; 84484; 85025; 85027; 85652; 86140; 87040; 87086; 87804; 90686; 93005; 93010; 94640; 94762; 94799; 96365; 99291; J1650; J1815; J1956; J2405; J3490; J7030; J7120; J7620

== ENCOUNTER → 2017-04-03 | Outpatient (CLI) | payer MEDICARE, OTHER ==
[2017-04-03 11:06] LABS: ABSOLUTE EOSINOPHILS # (AUTO) 0.1 10^3/uL (0.0-0.6); ABSOLUTE LYMPHOCYTES (AUTO) 1.6 10^3/uL (0.5-4.7); ABSOLUTE MONOCYTES (AUTO) 0.8 10^3/uL (0.1-1.4); ABSOLUTE NEUT (AUTO) 6.1 10^3/uL (1.7-8.2); BASOPHILS % (AUTO) 0.5 % (0-2); EOSINOPHILS % (AUTO) 1.5 % (0-6); HEMATOCRIT 40.3 % (36.0-47.0); HEMOGLOBIN 13.8 g/dL (12.0-15.5); LYMPHOCYTES % (AUTO) 18.4 % (13-45); MEAN CORPUSCULAR HEMOGLOBIN 31.9 pg (27.0-33.4); MEAN CORPUSCULAR HGB CONC 34.3 g/dL (32.0-36.0); MEAN CORPUSCULAR VOLUME 93 fl (80-97); MONOCYTES % (AUTO) 8.7 % (3-13); PLATELET COUNT 169 10^3/uL (150-450); RED BLOOD COUNT 4.33 10^6/uL (3.72-5.28); RED CELL DISTRIBUTION WIDTH 14.1 % (11.5-14.0); SEGMENTED NEUTROPHILS % (AUTO) 70.9 % (42-78); TOTAL CELLS COUNTED % (AUTO) 100 %; WHITE BLOOD COUNT 8.7 10^3/uL (4.0-10.5)
[2017-04-03 11:22] LABS: ALANINE AMINOTRANSFERASE 40 U/L (9-52); ALBUMIN 3.3 g/dL (3.5-5.0); ALKALINE PHOSPHATASE 85 U/L (38-126); ANION GAP 9 (5-19); ASPARTATE AMINO TRANSFERASE 95 U/L (14-36); BILIRUBIN,DIRECT 0.2 mg/dL (0.0-0.4); BILIRUBIN,TOTAL 1.6 mg/dL (0.2-1.3); BLOOD UREA NITROGEN 14 mg/dL (7-20); CALCIUM 8.8 mg/dL (8.4-10.2); CARBON DIOXIDE 26 mmol/L (22-30); CHLORIDE 109 mmol/L (98-107); GLUCOSE 82 mg/dL (75-110); POTASSIUM 3.5 mmol/L (3.6-5.0); SODIUM 144.2 mmol/L (137-145); TOTAL PROTEIN 6.1 g/dL (6.3-8.2)
[2017-04-03 11:28] LABS: APPEARANCE,URINE CLEAR; BILIRUBIN,URINE NEGATIVE (NEGATIVE); COLOR,URINE AMBER; GLUCOSE, URINE NEGATIVE (NEGATIVE); KETONES,URINE NEGATIVE (NEGATIVE); LEUKOCYTE ESTERASE,URINE TRACE (NEGATIVE); NITRITE,URINE NEGATIVE (NEGATIVE); PROTEIN,URINE NEGATIVE (NEGATIVE); URINE SPECIFIC GRAVITY 1.014; UROBILINOGEN,URINE NEGATIVE mg/dL (<2.0)
== END ==
LOC: OD 10:12
PROVIDERS: ATTEND Internal Medicine Nephrology
DX: I12.9 Hypertensive chronic kidney disease with stage 1 through stage 4 chronic kidney disease, or unspecified chronic kidney disease (principal); N18.3 Chronic kidney disease, stage 3 (moderate); E11.9 Type 2 diabetes mellitus without complications
CPT/HCPCS: 36415; 80053; 81001; 85025

== ENCOUNTER → 2017-05-22 | Outpatient (CLI) | payer MEDICARE, OTHER ==
--- NOTE | 2017-05-22 16:18 | RADIOLOGY REPORT (SQ) ---
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 Additional selected color Doppler and spectral images recorded. LIMITATIONS: None. FINDINGS: RIGHT KIDNEY: Normal size. Normal echogenicity. No solid or suspicious masses. No hydronep hrosis. No calcifications. LEFT KIDNEY: Normal size. Normal echogenicity. No solid or suspicious masses. No hydronephrosis. No calcifications. BLADDER: No masses. OTHER FINDINGS: No other significant finding. IMPRESSION: No significant finding. No hydronephrosis. TECHNICAL DOCUMENTATION: JOB ID: [id number] [employer]- All Rights Reserved Reading location - IP/workstation name: [email or web address]
== END ==
LOC: RAD 13:51
PROVIDERS: ATTEND Internal Medicine Nephrology
DX: N18.3 Chronic kidney disease, stage 3 (moderate) (principal); E11.9 Type 2 diabetes mellitus without complications
CPT/HCPCS: 76770

== ENCOUNTER 2017-08-01 16:28 | Emergency (ER) | payer MEDICARE, OTHER ==
[2017-08-01] MEDS ORDERED: FUROSEMIDE INJ/PF 40 MG/4 ML SDV IV ONE (17:31)
--- NOTE | 2017-08-01 17:33 | ER Document Report ---
ED Medical Screen (RME) - General Chief Complaint: Breathing Difficulty Stated Complaint: DIFFICULTY BREATHING Time Seen by Provider: 08/01/17 17:27 TRAVEL OUTSIDE OF THE [place] IN LAST 30 DAYS: No - HPI Notes: 08/01/17 17:32 Shortness of breath dyspnea on exertion and weight gain over 1 week - Related Data Allergies/Adverse Reactions: No Known Allergies Allergy (Verified 08/01/17 17:28) Past Medical History - Social History Chew tobacco use (# tins/day): No Frequency of alcohol use: None Drug Abuse: None - Past Medical History Cardiac Medical History: Reports: Hx Hypertension Denies: Hx Coronary Artery Disease, Hx Heart Attack Pulmonary Medical History: Reports: Hx Asthma, Hx Pneumonia - A BABY Denies: Hx Bronchitis, Hx COPD Neurological Medical History: Denies: Hx Cerebrovascular Accident, Hx Seizures Endocrine Medical History: Reports: Hx Diabetes Mellitus Type 2 Renal/ Medical History: Denies: Hx Peritoneal Dialysis GI Medical History: Reports: Hx Cirrhosis Musculoskeltal Medical History: Reports Hx Arthritis Psychiatric Medical History: Reports: Hx Depression - Immunizations Hx Diphtheria, Pertussis, Tetanus Vaccination: No History of Influenza Vaccine for 11/2016 - 04/2017 Season: No Influenza Administration Date for 11/2016 - 04/2017 Season: 09/19/16 Review of Systems - Review of Systems Respiratory: Short of breath Physical Exam - Vital signs Vitals: Temp Pulse Resp BP Pulse Ox 98.1 F 89 24 H 127/59 H 94 08/01/17 16:43 08/01/17 16:43 08/01/17 16:43 08/01/17 16:43 08/01/17 16:43 - General General appearance: Appears well In distress: None - Respiratory Respiratory status: No respiratory distress Chest status: Nontender Course - Vital Signs Vital signs: Temp Pulse Resp BP Pulse Ox 98.1 F 89 24 H 127/59 H 94 08/01/17 16:43 08/01/17 16:43 08/01/17 16:43 08/01/17 16:43 08/01/17 16:43 Doctor's Discharge - Discharge Referrals: DIMITRIS KWON MD [Primary Care Provider] - Follow up as needed
--- NOTE | 2017-08-01 18:08 | RADIOLOGY REPORT (SQ) ---
EXAM DESCRIPTION: CHEST 2 VIEWS COMPLETED DATE/TIME: 08/01/2017 5:43 pm REASON FOR STUDY: sob COMPARISON: 03/19/2017 EXAM PARAMETERS: NUMBER OF VIEWS: two views TECHNIQUE: Digital Frontal and Lateral radiographic views of the chest acquired. RADIATION DOSE: NA LIMITATIONS: Shallow inspiration. Patient body habitus. FINDINGS: LUNGS AND PLEURA: Patchy linear basilar atelectasis persist. No new developing consolidat ion or large pleural effusion. MEDIASTINUM AND HILAR STRUCTURES: No masses or contour abnormalities. HEART AND VASCULAR STRUCTURES: Heart normal size. No evidence for failure. BONES: No acute findings. HARDWARE: None in the chest. OTHER: No other significant finding. IMPRESSION: Stable appearance. Patchy linear basilar atelectasis persist. TECHNICAL DOCUMENTATION: JOB ID: [id number] [employer]- All Rights Reserved Reading location - IP/workstation name: [email or web address]
[2017-08-01] MEDS ORDERED: IPRATROPIUM/ALBUTEROL 0.5-2.5 MG/3 ML AMPUL NEB ONE (18:19)
[2017-08-01 18:20] LABS: ABSOLUTE EOSINOPHILS # (AUTO) 0.1 10^3/uL (0.0-0.6); ABSOLUTE LYMPHOCYTES (AUTO) 1.3 10^3/uL (0.5-4.7); ABSOLUTE MONOCYTES (AUTO) 0.9 10^3/uL (0.1-1.4); ABSOLUTE NEUT (AUTO) 6.7 10^3/uL (1.7-8.2); BASOPHILS % (AUTO) 0.5 % (0-2); EOSINOPHILS % (AUTO) 1.1 % (0-6); HEMATOCRIT 41.2 % (36.0-47.0); HEMOGLOBIN 14.1 g/dL (12.0-15.5); LYMPHOCYTES % (AUTO) 14.3 % (13-45); MEAN CORPUSCULAR HEMOGLOBIN 32.6 pg (27.0-33.4); MEAN CORPUSCULAR HGB CONC 34.2 g/dL (32.0-36.0); MEAN CORPUSCULAR VOLUME 96 fl (80-97); MONOCYTES % (AUTO) 10.2 % (3-13); PLATELET COUNT 130 10^3/uL (150-450); RED BLOOD COUNT 4.31 10^6/uL (3.72-5.28); RED CELL DISTRIBUTION WIDTH 14.4 % (11.5-14.0); SEGMENTED NEUTROPHILS % (AUTO) 73.9 % (42-78); TOTAL CELLS COUNTED % (AUTO) 100 %; WHITE BLOOD COUNT 9.1 10^3/uL (4.0-10.5)
[2017-08-01 18:37] LABS: ALANINE AMINOTRANSFERASE 48 U/L (9-52); ALBUMIN 3.2 g/dL (3.5-5.0); ALKALINE PHOSPHATASE 76 U/L (38-126); ANION GAP 11 (5-19); ASPARTATE AMINO TRANSFERASE 93 U/L (14-36); BILIRUBIN,DIRECT 0.5 mg/dL (0.0-0.4); BILIRUBIN,TOTAL 1.7 mg/dL (0.2-1.3); BLOOD UREA NITROGEN 12 mg/dL (7-20); CALCIUM 9.8 mg/dL (8.4-10.2); CARBON DIOXIDE 26 mmol/L (22-30); CHLORIDE 109 mmol/L (98-107); CREATINE KINASE 142 U/L (30-135); GLUCOSE 98 mg/dL (75-110); LIPASE 133.7 U/L (23-300); POTASSIUM 3.2 mmol/L (3.6-5.0); SODIUM 145.5 mmol/L (137-145); TOTAL PROTEIN 6.4 g/dL (6.3-8.2)
[2017-08-01 18:50] LABS: CREATINE KINASE MB 1.61 ng/mL (<4.55); TROPONIN I 0.023 ng/mL
--- NOTE | 2017-08-01 19:39 | EKG REPORT ---
SEVERITY:- BORDERLINE ECG - SINUS RHYTHM SHORT WI INTERVAL, ACCELERATED AV CONDUCTION BORDERLINE R WAVE PROGRESSION, ANTERIOR LEADS : Confirmed by: Reinier Luevano MD 01-Aug-2017 19:38:29
[2017-08-01 21:50] LABS: APPEARANCE,URINE CLEAR; BILIRUBIN,URINE NEGATIVE (NEGATIVE); COLOR,URINE STRAW; GLUCOSE, URINE NEGATIVE (NEGATIVE); KETONES,URINE NEGATIVE (NEGATIVE); LEUKOCYTE ESTERASE,URINE NEGATIVE (NEGATIVE); NITRITE,URINE NEGATIVE (NEGATIVE); PROTEIN,URINE NEGATIVE (NEGATIVE); URINE SPECIFIC GRAVITY 1.004; UROBILINOGEN,URINE NEGATIVE mg/dL (<2.0)
--- NOTE | 2017-08-02 00:07 | ER Document Report ---
ED General - General Chief Complaint: Breathing Difficulty Stated Complaint: DIFFICULTY BREATHING Time Seen by Provider: 08/01/17 17:27 Mode of Arrival: Ambulatory Information source: Patient Notes: Patient is a 62-year-old female who presents with chief complaint of abdominal, and left rib pain. Patient also complains of shortness of breath with weight gain of approximately 5 pounds over the last 2 weeks. Patient reports that she has had this same abdominal and low pelvic pain for 1 year ever since she had her ovary removed as well as both fallopian tubes removed. Patient reports that since then she has had intermittent abdominal pain especially to the left side but patient states that the pain has gotten worse over the last 2 weeks and now has accompanying abdominal swelling and distention. Patient reports some nausea and reports vomiting 1 yesterday however patient denies any diarrhea, reports normal bowel movements. Patient denies any urinary frequency , urgency or dysuria. Patient denies any fevers. Patient with past medical history of cirrhosis, chronic kidney disease, insulin-dependent diabetes, hypertension, asthma and gallstones. TRAVEL OUTSIDE OF THE [place] IN LAST 30 DAYS: No - Related Data Allergies/Adverse Reactions: No Known Allergies Allergy (Verified 08/01/17 17:28) Past Medical History - General Information source: Patient - Social History Smoking Status: Never Smoker Chew tobacco use (# tins/day): No Frequency of alcohol use: None Drug Abuse: None Family History: Reviewed & Not Pertinent Patient has suicidal ideation: No Patient has homicidal ideation: No - Past Medical History Cardiac Medical History: Reports: Hx Hypertension Denies: Hx Coronary Artery Disease, Hx Heart Attack Pulmonary Medical History: Reports: Hx Asthma, Hx Pneumonia - A BABY Denies: Hx Bronchitis, Hx COPD Neurological Medical History: Denies: Hx Cerebrovascular Accident, Hx Seizures Endocrine Medical History: Reports: Hx Diabetes Mellitus Type 2 Renal/ Medical History: Denies: Hx Peritoneal Dialysis GI Medical History: Reports: Hx Cirrhosis Musculoskeltal Medical History: Reports Hx Arthritis Psychiatric Medical History: Reports: Hx Depression Past Surgical History: Reports: Hx Hysterectomy, Hx Tubal Ligation - Immunizations Hx Diphtheria, Pertussis, Tetanus Vaccination: No Hx Pneumococcal Vaccination: 09/19/16 Review of Systems - Review of Systems Constitutional: No symptoms reported EENT: No symptoms reported Cardiovascular: No symptoms reported Respiratory: See HPI Gastrointestinal: See HPI Genitourinary: No symptoms reported Female Genitourinary: No symptoms reported Musculoskeletal: No symptoms reported Skin: No symptoms reported Hematologic/Lymphatic: No symptoms reported Neurological/Psychological: No symptoms reported Physical Exam - Vital signs Vitals: Temp Pulse Resp BP Pulse Ox 98.1 F 89 24 H 127/59 H 94 08/01/17 16:43 08/01/17 16:43 08/01/17 16:43 08/01/17 16:43 08/01/17 16:43 - Notes Notes: PHYSICAL EXAMINATION: GENERAL: Well-appearing, well-nourished and in no acute distress. HEAD: Atraumatic, normocephalic. EYES: Pupils equal round and reactive to light, extraocular movements intact, conjunctiva are normal. ENT: Nares patent, oropharynx clear without exudates. Moist mucous membranes. NECK: Normal range of motion, supple without lymphadenopathy LUNGS: Breath sounds clear to auscultation bilaterally and equal. No wheezes rales or rhonchi. HEART: Regular rate and rhythm without murmurs ABDOMEN: Distended, generalized TTP with guarding. No rebound. No masses appreciated. Female : Deferred Musculoskeletal: Normal range of motion, no pitting or edema. No cyanosis. NEUROLOGICAL: Cranial nerves grossly intact. Normal speech, normal gait. Normal sensory, motor exams PSYCH: Normal mood, normal affect. SKIN: Warm, Dry, normal turgor, no rashes or lesions noted. Course - Re-evaluation Re-evalutation: 62-year-old female with abdominal swelling and pain 2 weeks with shortness of breath for the last 10 days. Initial workup reveals an otherwise normal CBC other than a platelet count of 130 which is actually improved compared to patient's recent platelet counts. Comprehensive metabolic panel panel with potassium level of 3.2, will replace with p.o. potassium, BUN and creatinine are mildly elevated however they are in line with patient's baseline. BNP is normal, cardiac enzymes negative. Urinalysis is unremarkable with no signs of infection. EKG with regular rate and rhythm, no ST segment elevations or depressions, normal axis. Chest x-ray with patchy atelectasis similar to previous x-ray done 2 months ago. Patient was treated with albuterol and IV Lasix by provider in triage. Patient does report improvement of her shortness of breath after the albuterol treatment. On my initial assessment patient is normotensive, afebrile, and without hypoxia. CT abdomen pelvis with IV and oral contrast was performed due to patient's significant tenderness to palpation to entire abdomen as well as abdominal distention. CT abdomen pelvis reveals findings that are compatible with cirrhosis and portal hypertension to include a moderate amount of ascites. Patient is resting comfortably on room air with O2 sats of 98% and respiratory rate of 22. Patient continues to be afebrile and normotensive. Patient has not required any pain medication. Patient has been asking about food and drink. Patient will be discharged with plan to return to the outpatient radiology department in the morning. Spoke with Daniel Douglas, outpatient interventional assistant softball coach who is aware that the patient will be calling to schedule a time for an ultrasound-guided paracentesis. Patient and family member at bedside are both agreeable to this plan. Patient given return precautions to include development of fever, worsening abdominal pain or shortness of breath. - Vital Signs Vital signs: Temp Pulse Resp BP Pulse Ox 97.8 F 89 22 H 144/71 H 99 08/02/17 01:18 08/01/17 16:43 08/02/17 01:00 08/02/17 00:01 08/02/17 01:00 - Laboratory Result Diagrams: 08/01/17 18:02 08/01/17 18:02 Laboratory results interpreted by me: 08/01/17 08/01/17 08/02/17 18:02 18:02 00:17 RDW 14.4 H Plt Count 130 L Sodium 145.5 H Potassium 3.2 L Chloride 109 H Creatinine 1.37 H Est GFR ( Amer) 47 L Est GFR (Non-Af Amer) 39 L POC Glucose 67 L Total Bilirubin 1.7 H Direct Bilirubin 0.5 H AST 93 H Creatine Kinase 142 H Albumin 3.2 L - EKG Interpretation by Vt EKG shows normal: Sinus rhythm, Shelby, Intervals, QRS Complexes Rate: Normal Rhythm: NSR Discharge - Discharge Clinical Impression: Ascites Qualifiers: Ascites type: other type Qualified Code(s): R18.8 - Other ascites Abdominal pain Qualifiers: Abdominal location: generalized Qualified Code(s): R10.84 - Generalized abdominal pain Condition: Stable Disposition: HOME, SELF-CARE Additional Instructions: Please call the outpatient radiology department in the morning to schedule your paracentesis. Return to the emergency department if you develop a fever, worsening abdominal pain or shortness of breath. Follow up with Dr. Ricketts and Dr. Calvillo as scheduled. Prescriptions: Ondansetron HCl [Zofran 4 mg Tablet] 1 - 2 tab PO Q4H PRN #10 tablet PRN Reason: Forms: Follow-Up Radiology Testing Referrals: DIMITRIS CALVILLO MD [ACTIVE STAFF] - Follow up as needed
--- NOTE | 2017-08-02 00:11 | RADIOLOGY REPORT (SQ) ---
EXAM DESCRIPTION: CT ABDOMEN PELVIS WITH IV CONTRAST COMPLETED DATE/TME: 08/01/2017 00:00 CLINICAL HISTORY: generalized abd pain/swelling COMPARISON: 03/21/2017 TECHNIQUE: CT of the abdomen and pelvis performed following IV administration of 89 mL of Isovue-370. DLP: 2091.20 mGycm FINDINGS: Lung Bases: Scattered discoid atelectasis in the visualized lung bases. Calcified left hilar lymph nodes. Bones: Degenerative spondylosis of the visualized spine. Abdomen: Liver: Nodular contour of the liver. No intrahepatic mass identified. Right hepatic calcification granuloma. Gallbladder: Large calcified gallstone. Spleen, Pancreas, and Adrenal Glands: The spleen, pancreas, and adrenal glands are unremarkable. Kidneys: The kidneys have normal size and contour without evidence of solid mass or hydronephrosis. Vasculature: The aorta and IVC have normal caliber and position. The portal vein is patent. Numerous portal collaterals identified. The proximal visceral and renal arteries are patent. Stomach: The stomach and duodenum have normal course. Other: No free intraperitoneal air. Moderate amount of ascites. Mild body wall anasarca. Pelvis: Bladder: Urinary bladder is unremarkable. Bowel: Scattered diverticula of sigmoid colon. No dilated loops of large or small bowel. Appendix: The appendix is not identified. Pelvis: Uterus is not enlarged. Breast calcification the left ovary is stable. IMPRESSION: 1. Findings compatible with cirrhosis and portal hypertension. 2. Large cholelithiasis. 3. Moderate amount of ascites. This exam was performed according to our departmental dose-optimization program, which includes automated exposure control, adjustment of the mA and/or kV according to patient size and/or use of iterative reconstruction technique.
[2017-08-02] MEDS ORDERED: POTASSIUM CHLORIDE 10 MEQ TABLET.SA PO ONE (01:09)
[2017-08-02 01:10] VITALS: BP 144/71
[2017-08-02 01:59] LABS: INTERNATIONAL RATION (INR) 1.41
== END 2017-08-02 01:46 | disposition home or self-care (01) ==
LOC: ER 16:28
DX: R18.8 Other ascites (principal); J98.11 Atelectasis; J45.909 Unspecified asthma, uncomplicated; K80.20 Calculus of gallbladder without cholecystitis without obstruction; R06.02 Shortness of breath; R10.84 Generalized abdominal pain; R07.81 Pleurodynia; R11.2 Nausea with vomiting, unspecified; I10 Essential (primary) hypertension; E11.9 Type 2 diabetes mellitus without complications; Z79.4 Long term (current) use of insulin; Z90.721 Acquired absence of ovaries, unilateral; Z90.79 Acquired absence of other genital organ(s); Z90.710 Acquired absence of both cervix and uterus
CPT/HCPCS: 93005; 94640; 99285; 96374; 36415; 82553; 82962; 82550; 83690; 85025; 85610; 80053; 81001; 84484; 83880; 71046; 74177; 93010; J1940; A9270 ×2; J7620

== ENCOUNTER 2017-08-02 08:57 | Day surgery (SDC) | payer MEDICARE, OTHER ==
[2017-08-02] MEDS ORDERED: LIDOCAINE 1% INJ-PF (10 MG/ML) 30 ML SDV ONE (11:05)
[2017-08-02 13:20] LABS: FLUID APPEARANCE OPAQUE; FLUID COLOR STRAW; FLUID SOURCE ASCITES; FLUID TYPE PERITONEAL; FLUID VISCOSITY LIQUID
--- NOTE | 2017-08-02 13:23 | RADIOLOGY REPORT (SQ) ---
EXAM DESCRIPTION: U/S ABD PARACENTESIS COMPLETED DATE/TIME: 08/02/2017 12:36 pm REASON FOR STUDY: ASCITES COMPARISON CT abdomen pelvis 08/01/2017 LIMITATIONS: None. PROCEDURE: After obtaining informed consent, the patient was brought to the ultrasound suite. The p rocedure was performed with the patient on a gurney. Ultrasound was used to identify a prominent poc ket of ascites in the right lower quadrant. An appropriate access site was selected. The patient wa s prepped and draped in usual sterile fashion. The access site was anesthetized with 6 mL 1% lidoca ine. A Ldxz-A-Jgayzuxd needle was advanced into the fluid. After aspiration of fluid the needle, th e catheter was advanced off the needle into the fluid. A total of 2,460 mL of cloudy fluid was remov ed. The patient tolerated the procedure well left the department in satisfactory condition. Specimens of ascites fluid were sent for laboratory testing. IMPRESSION: Successful ultrasound-guided diagnostic and therapeutic paracentesis COMMENT: Patient medication list reviewed: Yes- Quality ID# [id number]:Eligible professional attests to doc umenting in the medical record they obtained, updated, or reviewed the patient's current medications. TECHNICAL DOCUMENTATION: JOB ID: [id number] [employer]- All Rights Reserved Reading location - IP/workstation name: [email or web address]
[2017-08-02 15:53] VITALS: BP 129/65
[2017-08-03 13:58] LABS: ALBUMIN BODY FLUID 0.7 g/dL (.)
== END 2017-08-02 13:55 | disposition home or self-care (01) ==
LOC: RAD 08:57
PROVIDERS: ATTEND Nurse Practitioner
DX: R18.8 Other ascites (principal); R06.02 Shortness of breath; R14.0 Abdominal distension (gaseous); R10.9 Unspecified abdominal pain
CPT/HCPCS: 87205; 87070; 82962; 89050; 87075; 82042; 82945; 83615; 88162; 49083; J3490

== ENCOUNTER 2017-09-04 07:31 | Outpatient (CLI) | payer MEDICARE, OTHER ==
[~2017-09-04 07:31] MED LIST changes: +ALBUMIN HUMAN 25 GM/100 ML RTUINJ IV PRN; -FENTANYL CITRATE INJ/PF 100 MCG/2 ML AMPUL ONE; -MIDAZOLAM 2 MG/2 ML INJ ONE; -PROPOFOL INJ 200 MG/20 ML VIAL IV ONE
[2017-09-04 08:21] VITALS: BP 109/42
[2017-09-04 08:30] LABS: HEMATOCRIT 38.7 % (36.0-47.0); HEMOGLOBIN 13.5 g/dL (12.0-15.5); MEAN CORPUSCULAR HEMOGLOBIN 33.2 pg (27.0-33.4); MEAN CORPUSCULAR HGB CONC 34.9 g/dL (32.0-36.0); MEAN CORPUSCULAR VOLUME 95 fl (80-97); PLATELET COUNT 120 10^3/uL (150-450); RED BLOOD COUNT 4.07 10^6/uL (3.72-5.28); RED CELL DISTRIBUTION WIDTH 14.3 % (11.5-14.0); WHITE BLOOD COUNT 8.9 10^3/uL (4.0-10.5)
[2017-09-04 08:34] LABS: INTERNATIONAL RATION (INR) 1.28; PROTHROMBIN TIME 16.6 SEC (11.4-15.4)
[2017-09-04 08:35] LABS: PARTIAL THROMBOPLASTIN TIME 34.9 SEC (23.5-35.8)
[2017-09-04 08:45] LABS: BLOOD UREA NITROGEN 30 mg/dL (7-20); GLUCOSE 113 mg/dL (75-110)
[2017-09-04] MEDS ORDERED: LIDOCAINE 1% INJ-PF (10 MG/ML) 30 ML SDV ONE (09:38)
--- NOTE | 2017-09-04 11:19 | RADIOLOGY REPORT (SQ) ---
EXAM DESCRIPTION: U/S ABDOMEN LIMITED W/O DOP COMPLETED DATE/TIME: 09/04/2017 10:38 am REASON FOR STUDY: ASCITES K74.60 UNSPECIFIED CIRRHOSIS OF LIVER Z79.899 OTHER [facility] (CURRENT) DRUG THERAPY COMPARISON: CT abdomen pelvis 08/01/2017 Paracentesis 08/02/2017 TECHNIQUE: Dynamic and static grayscale images acquired of the abdomen and recorded on PACS. Additio nal selected color Doppler and spectral images recorded. 4 quadrant exam to assess ascites LIMITATIONS: None. FINDINGS: Limited abdominal ultrasound was performed to evaluate for ascites. No right upper quadra nt, left upper quadrant, or left lower quadrant fluid is present. There is trace right lower quadran t ascites. No paracentesis was performed today. IMPRESSION: Trace right lower quadrant ascites. No paracentesis was performed today. TECHNICAL DOCUMENTATION: JOB ID: [id number] [employer]- All Rights Reserved Reading location - IP/workstation name: [email or web address]
== END 2017-09-04 10:25 | disposition home or self-care (01) ==
LOC: RAD 07:31 → EDSTATUS 10:59
PROVIDERS: ATTEND Family Medicine
DX: K74.60 Unspecified cirrhosis of liver (principal)
CPT/HCPCS: 36415; 76705; 82565; 82947; 84520; 85027; 85610; 85730; J3490; P9047

== ENCOUNTER 2017-09-07 07:50 | Day surgery (SDC) | payer MEDICARE, OTHER ==
[2017-09-07] MEDS ORDERED: NALOXONE HCL INJ/PF 0.4 MG/1 ML SDV ONE (08:02)
[2017-09-07] MEDS ORDERED: ONDANSETRON HCL INJ/PF 4 MG/2 ML SDV ONE (08:02)
[2017-09-07] MEDS ORDERED: DIPHENHYDRAMINE HCL 50 MG/ML VIAL ONE (08:02)
[2017-09-07] MEDS ORDERED: MIDAZOLAM 2 MG/2 ML INJ ONE (08:03)
[2017-09-07] MEDS ORDERED: FENTANYL CITRATE INJ/PF 100 MCG/2 ML AMPUL ONE ×2 (08:06→08:07)
[2017-09-07] MEDS ORDERED: FLUMAZENIL INJ 0.5 MG/5 ML VIAL ONE (08:07)
[2017-09-07] MEDS ORDERED: GLUCAGON,HUMAN RECOMB 1 MG INJ ONE (08:07)
[2017-09-07] MEDS ORDERED: EPINEPHRINE INJ 1 MG/10 ML DISP.SYRIN ONE (08:07)
[2017-09-07 09:45] VITALS: BP 127/62
--- NOTE | 2017-09-07 10:49 | Operative Report ---
Operative Report DATE OF SURGERY: 09/07/17 Operative Report: The risks, benefits and alternatives of the procedure are explained to the patient in detail patient is taken back to endoscopy suite time out is called conscious sedation if administered A GIF endoscope is inserted into the patient's mouth the egd is completed without incident retroflexion is performed PREOPERATIVE DIAGNOSIS: nausea and vomiting POSTOPERATIVE DIAGNOSIS: gastritis, biopsy to rule out H.Pylori. no gastric or esophageal varices OPERATION: EGD with biopsy SURGEON: CHUNG REZA ANESTHESIA: Moderate Sedation - 2mg of Versed, 50mcg of Fentanyl. Conscious sedation monitoring time is 30mins TISSUE REMOVED OR ALTERED: as noted above COMPLICATIONS: none ESTIMATED BLOOD LOSS: none INTRAOPERATIVE FINDINGS: as noted above PROCEDURE: patient tolerated procedure well patient is discharged in good condition no immediate post procedure complications discharge date: 09/07/17 discharge diet and activity: regular patient to follow up in 2-3 weeks patient is instructed to go to ED or call office if any problems
== END 2017-09-07 09:40 | disposition home or self-care (01) ==
LOC: END 07:50
PROVIDERS: ATTEND Internal Medicine Gastroenterology
DX: K29.50 Unspecified chronic gastritis without bleeding (principal); K74.60 Unspecified cirrhosis of liver; J44.9 Chronic obstructive pulmonary disease, unspecified; I12.9 Hypertensive chronic kidney disease with stage 1 through stage 4 chronic kidney disease, or unspecified chronic kidney disease; E11.22 Type 2 diabetes mellitus with diabetic chronic kidney disease; N18.3 Chronic kidney disease, stage 3 (moderate); Z87.891 Personal history of nicotine dependence; Z79.51 Long term (current) use of inhaled steroids; Z79.899 Other long term (current) drug therapy; Z79.4 Long term (current) use of insulin; Z88.5 Allergy status to narcotic agent
CPT/HCPCS: 43239; 82962; 88305 ×2; J2250; J3010; J0171; J1200; J1610; J2310; J2405; J3490

== ENCOUNTER 2017-09-08 20:53 | Inpatient (IN) | payer MEDICARE, OTHER ==
--- NOTE | 2017-09-08 22:34 | RADIOLOGY REPORT (SQ) ---
EXAM DESCRIPTION: CT HEAD WITHOUT COMPLETED DATE/TIME: 09/08/2017 10:23 pm REASON FOR STUDY: AMS COMPARISON: None. TECHNIQUE: Axial images acquired through the brain without intravenous contrast. Images reviewed wi th bone, brain and subdural windows. Images stored on PACS. All CT scanners at this facility use dose modulation, iterative reconstruction, and/or weight based d osing when appropriate to reduce radiation dose to as low as reasonably achievable (ALARA). [facility]: Dose Right [facility]: CareDose [facility]: Dose Right [facility]: Teradose 4D [facility]: Smart Netsize RADIATION DOSE: CT Rad equipment meets quality standard of care and radiation dose reduction techniq ues were employed. CTDIvol: 53.2 mGy. DLP: 991 mGy-cm. mGy. LIMITATIONS: None. FINDINGS: VENTRICLES: Normal size and contour. CEREBRUM: No mass effect. No hemorrhage. No midline shift. Normal bonilla/white matter differentiatio n. No evidence for acute territorial infarction. CEREBELLUM: No mass effect. No hemorrhage. No alteration of density. No evidence for acute infarct ion. EXTRAAXIAL SPACES: No fluid collections. ORBITS AND GLOBE: Symmetrical contour of the globes. CALVARIUM: No depressed skull fracture. PARANASAL SINUSES: No air-fluid level. SOFT TISSUES: No hematoma. IMPRESSION: No acute intracranial hemorrhage or acute territorial infarct. EVIDENCE OF ACUTE STROKE: NO. COMMENT: Quality ID # [id number]: Final reports with documentation of one or more dose reduction techniques (e.g., Automated exposure control, adjustment of the mA and/or kV according to patient size, use of iterative reconstruction technique) TECHNICAL DOCUMENTATION: JOB ID: [id number] [email or web address]- All Rights Reserved Reading location - IP/workstation name: [email or web address]
[2017-09-08 23:00] LABS: ABSOLUTE EOSINOPHILS # (AUTO) 0.2 10^3/uL (0.0-0.6); ABSOLUTE LYMPHOCYTES (AUTO) 1.7 10^3/uL (0.5-4.7); ABSOLUTE MONOCYTES (AUTO) 0.8 10^3/uL (0.1-1.4); ABSOLUTE NEUT (AUTO) 4.5 10^3/uL (1.7-8.2); BASOPHILS % (AUTO) 0.6 % (0-2); EOSINOPHILS % (AUTO) 2.4 % (0-6); HEMOGLOBIN 14.4 g/dL (12.0-15.5); LYMPHOCYTES % (AUTO) 23.4 % (13-45); MEAN CORPUSCULAR HGB CONC 34.2 g/dL (32.0-36.0); MEAN CORPUSCULAR VOLUME 97 fl (80-97); MONOCYTES % (AUTO) 10.7 % (3-13); PLATELET COUNT 122 10^3/uL (150-450); RED BLOOD COUNT 4.35 10^6/uL (3.72-5.28); RED CELL DISTRIBUTION WIDTH 14.2 % (11.5-14.0); SEGMENTED NEUTROPHILS % (AUTO) 62.9 % (42-78); TOTAL CELLS COUNTED % (AUTO) 100 %; WHITE BLOOD COUNT 7.2 10^3/uL (4.0-10.5)
--- NOTE | 2017-09-08 23:03 | RADIOLOGY REPORT (SQ) ---
Clinical History : AMS , Exam : Portable AP view of the chest 09/08/2017 9:44 PM CDT Comparisons : PA and lateral views of the chest March 19, 2017 Findings : The lungs are low in volume which accentuates the pulmonary vasculature. There is otherwise no focal consolidation or pleural effusion.. The heart is normal in size. The mediastinal contours are normal in appearance. The thoracic spine is age appropriate. The shoulders are unremarkable. Limited evaluation of the upper abdomen demonstrates no gross abnormalities. Impression: Low lung volumes, otherwise no acute cardiopulmonary disease
[2017-09-08 23:14] LABS: APPEARANCE,URINE CLEAR; BILIRUBIN,URINE NEGATIVE (NEGATIVE); COLOR,URINE YELLOW; GLUCOSE, URINE 50 mg/dL (NEGATIVE); KETONES,URINE NEGATIVE (NEGATIVE); LEUKOCYTE ESTERASE,URINE NEGATIVE (NEGATIVE); NITRITE,URINE NEGATIVE (NEGATIVE); PROTEIN,URINE NEGATIVE (NEGATIVE)
[2017-09-08 23:15] LABS: INTERNATIONAL RATION (INR) 1.24; PARTIAL THROMBOPLASTIN TIME 33.2 SEC (23.5-35.8); PROTHROMBIN TIME 16.3 SEC (11.4-15.4)
[2017-09-08 23:23] LABS: ALANINE AMINOTRANSFERASE 45 U/L (9-52); ALBUMIN 3.6 g/dL (3.5-5.0); ALKALINE PHOSPHATASE 89 U/L (38-126); ANION GAP 16 (5-19); ASPARTATE AMINO TRANSFERASE 78 U/L (14-36); BILIRUBIN,DIRECT 0.6 mg/dL (0.0-0.4); BILIRUBIN,TOTAL 1.5 mg/dL (0.2-1.3); BLOOD UREA NITROGEN 31 mg/dL (7-20); CALCIUM 10.3 mg/dL (8.4-10.2); CARBON DIOXIDE 22 mmol/L (22-30); CHLORIDE 107 mmol/L (98-107); CREATINE KINASE 80 U/L (30-135); GLUCOSE 329 mg/dL (75-110); POTASSIUM 4.2 mmol/L (3.6-5.0); SODIUM 144.5 mmol/L (137-145); TOTAL PROTEIN 7.6 g/dL (6.3-8.2)
--- NOTE | 2017-09-08 23:34 | ER Document Report ---
ED General - General Chief Complaint: Decreased LOC Stated Complaint: ALTERED MENTAL STATUS Time Seen by Provider: 09/08/17 21:21 Notes: Patient is a 62-year-old female who comes emergency department for chief complaint of altered mental status. Friends at bedside, patient is unable to give me any history. Reportedly patient had an endoscopy yesterday by Dr. Reina at 8 AM, they state since that time patient has had difficulty interacting , she was able to eat earlier but now she will not respond to them. She is still arousable. Past medical history includes cirrhosis, chronic kidney disease, type 2 diabetes (insulin-dependent). Unsure if she had lactulose earlier, they believe she might have missed her dose. No fever, vomiting, passing out, or other abnormalities noted. TRAVEL OUTSIDE OF THE [place] IN LAST 30 DAYS: No - Related Data Allergies/Adverse Reactions: hydromorphone Allergy (Intermediate, Verified 09/07/17 07:57) AMS oxycodone Allergy (Intermediate, Verified 09/07/17 07:57) AMS Past Medical History - General Information source: Friend - Social History Smoking Status: Never Smoker Frequency of alcohol use: None Lives with: Alone Family History: Reviewed & Not Pertinent Patient has suicidal ideation: No Patient has homicidal ideation: No - Past Medical History Cardiac Medical History: Reports: Hx Hypertension Denies: Hx Coronary Artery Disease, Hx Heart Attack Pulmonary Medical History: Reports: Hx Asthma, Hx Pneumonia Denies: Hx Bronchitis, Hx COPD Neurological Medical History: Denies: Hx Cerebrovascular Accident, Hx Seizures Endocrine Medical History: Reports: Hx Diabetes Mellitus Type 2 Renal/ Medical History: Denies: Hx Peritoneal Dialysis GI Medical History: Reports: Hx Cirrhosis Musculoskeletal Medical History: Reports Hx Arthritis - OA LUMBAR, NECK, SHOULDERS Psychiatric Medical History: Reports: Hx Depression Past Surgical History: Reports: Hx Tubal Ligation. Denies: Hx Hysterectomy - Immunizations Hx Diphtheria, Pertussis, Tetanus Vaccination: No Hx Pneumococcal Vaccination: 09/19/16 Review of Systems - Review of Systems Constitutional: No symptoms reported EENT: No symptoms reported Cardiovascular: No symptoms reported Respiratory: No symptoms reported Gastrointestinal: No symptoms reported Genitourinary: No symptoms reported Female Genitourinary: No symptoms reported Musculoskeletal: No symptoms reported Skin: No symptoms reported Hematologic/Lymphatic: No symptoms reported Neurological/Psychological: See HPI Physical Exam - Vital signs Vitals: Resp Pulse Ox 18 96 09/08/17 21:01 09/08/17 21:01 - Notes Notes: GENERAL: Patient lying on the bed with her eyes closed, she is arousable HEAD: Normocephalic, atraumatic. EYES: Pupils equal, round, and reactive to light. Extraocular movements intact. ENT: Oral mucosa moist, tongue midline. [Nares patent, no nasal septal hematoma , TM's intact.] NECK: Full range of motion. Supple. Trachea midline. LUNGS: Clear to auscultation bilaterally, no wheezes, rales, or rhonchi. No respiratory distress. HEART: Regular rate and rhythm. No murmur ABDOMEN: Soft, non-tender. Non-distended. Bowel sounds present in all 4 quadrants. EXTREMITIES: Moves all 4 extremities spontaneously. No edema, normal radial and dorsalis pedis pulses bilaterally. No cyanosis. BACK: no cervical, thoracic, lumbar midline tenderness. No saddle anesthesia, normal distal neurovascular exam. NEUROLOGICAL: Patient will follow directions including finger to nose test, EOMs , sticking out her tongue, however she will not answer me. [cranial nerves II through XII grossly intact]. SKIN: Warm, dry, normal turgor. No rashes or lesions noted. Course - Re-evaluation Re-evalutation: CAT scan of the head and chest x-ray are unremarkable. CBC unremarkable, chemistry shows approximately baseline kidney functioning. Urinalysis unremarkable. Ammonia is significantly elevated. Patient will follow directions but is extremely sluggish, confused, and will not answer with words. Vital signs are unremarkable. Because of concern of patient might aspirate with p.o. at this time based on her mental status patient will be given lactulose enema. Spoke with hospitalist, Dr. Duenas, patient will be admitted to telemetry. - Vital Signs Vital signs: Temp Pulse Resp BP Pulse Ox 98.7 F 91 17 102/53 L 98 09/09/17 08:00 09/09/17 08:00 09/09/17 08:00 09/09/17 08:00 09/09/17 08:00 - Laboratory Result Diagrams: 09/09/17 07:47 09/09/17 07:47 Laboratory results interpreted by me: 09/08/17 09/08/17 09/08/17 22:43 22:43 22:43 RDW 14.2 H Plt Count 122 L PT 16.3 H BUN 31 H Creatinine 1.61 H Est GFR ( Amer) 39 L Est GFR (Non-Af Amer) 32 L Glucose 329 H Calcium 10.3 H Total Bilirubin 1.5 H Direct Bilirubin 0.6 H AST 78 H Ammonia Urine Glucose (UA) Urine Urobilinogen 09/08/17 09/08/17 22:43 23:00 RDW Plt Count PT BUN Creatinine Est GFR ( Amer) Est GFR (Non-Af Amer) Glucose Calcium Total Bilirubin Direct Bilirubin AST Ammonia 77.8 H Urine Glucose (UA) 50 H Urine Urobilinogen 4.0 H Discharge - Discharge Clinical Impression: Hepatic encephalopathy Altered mental status Qualifiers: Altered mental status type: unspecified Qualified Code(s): R41.82 - Altered mental status, unspecified Condition: Stable Disposition: ADMITTED INPATIENT Admitting Provider: Hospitalist Unit Admitted: Telemetry
[2017-09-08 23:35] LABS: CREATINE KINASE MB 0.89 ng/mL (<4.55); TROPONIN I 0.015 ng/mL
[2017-09-08] MEDS ORDERED: LACTULOSE SYRUP 20 GM/30 ML UDCUP PR ONE (23:51)
[2017-09-09] MEDS ORDERED: ALBUTEROL SULFATE HFA (90 MCG/PUFF) 8 GM MDI (1 MDI/ER DISP) IH PRN (02:21)
[2017-09-09] MEDS ORDERED: GLUCAGON,HUMAN RECOMB 1 MG INJ IM PRN (02:33)
[2017-09-09] MEDS ORDERED: DEXTROSE 50%-WATER 25 GM/50 ML DISP.SYRIN IV PRN ×2 (02:33)
[2017-09-09] MEDS ORDERED: DEXTROSE 40% GEL 15 GM TUBE PO PRN ×2 (02:33)
[2017-09-09] MEDS ORDERED: NORMAL SALINE 1000 ML 1,000 ML IV PRN (02:34)
--- NOTE | 2017-09-09 03:00 | PDOC H&P ---
History of Present Illness Admission Date/PCP: 09/09/17 01:26 [facility] AGEE DO Patient complains of: Altered mental status History of Present Illness: ELISSA ROBERTS is a 62 year old female with medical history of liver cirrhosis, comes to the emergency department brought by a friend. The patient unable to give any history secondary to her confusion. Reportedly patient had an endoscopy on Sunday by Dr. Reina at 8 AM, since that time the patient had difficulty interacting, patient was able to eat earlier but she was not answering any question. In the emergency department patient is awake with open eyes but unable to answer questions, can follow very simple commands at the time of my evaluation, apparently more awake than when she came in. In the emergency department order rectal lactulose as her ammonia levels came elevated at 77. Chest x-ray and CT of the head negative. Further information will be obtained at this time. Past Medical History Cardiac Medical History: Reports: Hypertension Denies: Coronary Artery Disease, Myocardial Infarction Pulmonary Medical History: Reports: Asthma, Chronic Obstructive Pulmonary Disease (COPD), Pneumonia Denies: Bronchitis Neurological Medical History: Denies: Seizures Endocrine Medical History: Reports: Diabetes Mellitus Type 2 GI Medical History: Reports: Cirrhosis Musculoskeltal Medical History: Reports: Arthritis - OA LUMBAR, NECK, SHOULDERS Psychiatric Medical History: Reports: Depression Hematology: Denies: Anemia Past Surgical History Past Surgical History: Reports: Tubal Ligation Denies: Hysterectomy Social History Smoking Status: Never Smoker Frequency of Alcohol Use: None Hx Recreational Drug Use: Yes Drugs: None Hx Prescription Drug Abuse: No Family History Family History: Reviewed & Not Pertinent Family History: Unable to obtain at this time as per patient's confusion Parental Family History Reviewed: No Children Family History Reviewed: NA Sibling(s) Family History Reviewed.: NA Medication/Allergy Home Medications: Fluticasone/Salmeterol [Advair 250-50 Diskus 28 dose] 1 puff IH BID 03/19/17 Gabapentin [Neurontin 400 mg Capsule] 400 mg PO Q8 03/19/17 Insulin Aspart [Novolog Insulin (Aspart) 100 unit/mL] 0 units SQ .PERSLIDINGSCALE 03/19/17 Losartan Potassium [Cozaar 100 mg Tablet] 100 mg PO DAILY 03/19/17 Furosemide [Lasix 40 mg Tablet] 1 tab PO BID 09/04/17 Lactulose 1 tab PO TID 09/04/17 Spironolactone 1 tab PO BID 09/04/17 Albuterol Sulfate [Proair HFA] 1 - 2 puff PO PRN PRN 09/06/17 Ergocalciferol (Vitamin D2) [Vitamin D] 50,000 unit PO ASDIR PRN 09/06/17 Escitalopram Oxalate [Lexapro 10 mg Tablet] 10 mg PO DAILY 09/06/17 Insulin Glargine,Hum.rec.anlog [Lantus Insulin 100 Unit/mL] 65 unit SUBCUT QHS 09/06/17 Allergies/Adverse Reactions: hydromorphone Allergy (Intermediate, Verified 09/07/17 07:57) AMS oxycodone Allergy (Intermediate, Verified 09/07/17 07:57) AMS Review of Systems Review of Systems: Unable to obtain as the patient is nonverbal and encephalopathic Physical Exam Vital Signs: Temp Pulse Resp BP Pulse Ox 11 L 131/78 H 93 09/09/17 00:01 09/09/17 00:01 09/09/17 00:01 Additional comments: General appearance: Well-developed, obese, alert and non-cooperative secondary to her confusion, and appears to be in no acute distress Head: Normocephalic Eyes: PEERL, EOMI, vision is grossly intact. Ears: External auditory canal and tympanic membranes clear, hearing grossly intact. Nose: No nasal discharge. Throat: Oral cavity and pharynx normal. No inflammation, swelling, exudate or lesions. Neck: Neck supple, nontender without lymphadenopathy, masses or thyromegaly. Cardiac: Normal S1 and S2. No S3, S4 or murmurs. Rhythm is regular. There is no peripheral edema, cyanosis or pallor. Extremities are warm and well perfused. Capillary refill is less than 2 seconds. No carotid bruits. Lungs: Clear to auscultation and percussion without rales, rhonchi, wheezing or diminished breath sounds. Not using accessory muscles. Abdomen: Positive bowel sounds. Soft. Nondistended, mild diffuse tenderness. No guarding or rebound. No masses. hepatosplenomegaly Unable to evaluate secondary to body habitus Extremities: No significant deformity or joint abnormality. No edema. Peripheral pulses intact. No varicosities. Neurological: Cranial nerves II through XII grossly intact. Rest unable to evaluate secondary to confusion. Skin: Skin normal color, texture and turgor with no lesions or eruptions, warm and dry. Psychiatric: Unable to evaluate the patient is confused and nonverbal Results Laboratory Results: 09/08/17 09/08/17 09/08/17 22:43 22:43 22:43 WBC 7.2 RBC 4.35 Hgb 14.4 Hct 42.0 RDW 14.2 H Plt Count 122 L Seg Neutrophils % 62.9 PT 16.3 H INR 1.24 APTT 33.2 Sodium 144.5 Potassium 4.2 Chloride 107 Carbon Dioxide 22 Anion Gap 16 BUN 31 H Creatinine 1.61 H Est GFR ( Amer) 39 L Est GFR (Non-Af Amer) 32 L Glucose 329 H Calcium 10.3 H Total Bilirubin 1.5 H Direct Bilirubin 0.6 H AST 78 H ALT 45 Alkaline Phosphatase 89 Ammonia Creatine Kinase 80 CK-MB (CK-2) Troponin I Total Protein 7.6 Albumin 3.6 Urine Color Urine Appearance Urine pH Ur Specific Kamas Urine Protein Urine Glucose (UA) Urine Ketones Urine Blood Urine Nitrite Urine Bilirubin Urine Urobilinogen Ur Leukocyte Esterase Urine WBC (Auto) Urine RBC (Auto) U Hyaline Cast (Auto) Squamous Epi Cells Auto Urine Mucus (Auto) Urine Ascorbic Acid 09/08/17 09/08/17 09/08/17 22:43 22:43 23:00 WBC RBC Hgb Hct RDW Plt Count Seg Neutrophils % PT INR APTT Sodium Potassium Chloride Carbon Dioxide Anion Gap BUN Creatinine Est GFR ( Amer) Est GFR (Non-Af Amer) Glucose Calcium Total Bilirubin Direct Bilirubin AST ALT Alkaline Phosphatase Ammonia 77.8 H Creatine Kinase CK-MB (CK-2) 0.89 Troponin I 0.015 Total Protein Albumin Urine Color YELLOW Urine Appearance CLEAR Urine pH 6.0 Ur Specific Kamas 1.010 Urine Protein NEGATIVE Urine Glucose (UA) 50 H Urine Ketones NEGATIVE Urine Blood NEGATIVE Urine Nitrite NEGATIVE Urine Bilirubin NEGATIVE Urine Urobilinogen 4.0 H Ur Leukocyte Esterase NEGATIVE Urine WBC (Auto) 1 Urine RBC (Auto) 0 U Hyaline Cast (Auto) 7 Squamous Epi Cells Auto <1 Urine Mucus (Auto) RARE Urine Ascorbic Acid NEGATIVE Impressions: Head CT 09/08/17 21:43 IMPRESSION: No acute intracranial hemorrhage or acute territorial infarct. EVIDENCE OF ACUTE STROKE: NO. Assessment & Plan - Diagnosis (1) Hepatic encephalopathy Is this a current diagnosis for this admission?: Yes Plan: Patient has a diagnosis of liver cirrhosis and recent EGD done last Sunday. Was confused, elevated ammonia. We will treat as hepatic encephalopathy, will continue with lactulose 200 mg rectal every 4 hours and her mental status improves and we transitioned to p.o. lactulose. IV fluids. I will keep the patient n.p.o. overnight. Neuro checks every 4 hours. Will repeat ammonia in the morning. (2) Liver cirrhosis Is this a current diagnosis for this admission?: Yes Plan: Patient has history of liver cirrhosis, will continue with her home medications. Stenosis of beta-blockers or potassium sparing agents in her home medication list. (3) Acute kidney injury superimposed on CKD Is this a current diagnosis for this admission?: Yes Plan: Be an 31 creatinine 1.6, Usha this year creatinine was 1.37 in the setting of CKD stage III. This is likely multifactorial, I am giving her some IV fluids and reassess the renal panel in the morning. (4) Diabetes mellitus type 2 in obese Is this a current diagnosis for this admission?: Yes Plan: Patient has insulin-dependent diabetes mellitus type 2. We can continue with her home insulin glargine. Insulin lispro sliding scale with hypoglycemia protocol. Accu-Cheks every 6 hours the patient is n.p.o. overnight. (5) Coagulopathy Is this a current diagnosis for this admission?: Yes Plan: INR 1.24, likely secondary to her liver cirrhosis. - Time Time Spent: 30 to 50 Minutes - Inpatient Certification Based on my medical assessment, after consideration of the patient's comorbidities, presenting symptoms, or acuity I expect that the services needed warrant INPATIENT care.: Yes I certify that my determination is in accordance with my understanding of Medicare's requirements for reasonable and necessary INPATIENT services [42 CFR 412.3e].: Yes Medical Necessity: Significant Comorbidiites Make Outpatient Treatment Too Risky , Need for Neurological Checks, Risk of Complication if Not Cared For in Hospital
[2017-09-09] MEDS ORDERED: LACTULOSE SYRUP 20 GM/30 ML UDCUP PR SCH (06:00)
[2017-09-09] MEDS: HEPARIN SOD (PORCINE) 5,000 UNIT/ML 1 ML SYRINGE SUBCUT SCH ×3 (07:48→22:53)
[2017-09-09] MEDS: GABAPENTIN 400 MG CAPSULE PO SCH ×3 (08:00→22:45)
[2017-09-09] MEDS: INSULIN REG, HUMAN 100 UNIT/ML 3 ML VIAL (PYX) SUBCUT PRN (08:09)
[2017-09-09 08:10] LABS: ABSOLUTE BASOPHILS # (AUTO) 0.1 10^3/uL (0.0-0.2); ABSOLUTE EOSINOPHILS # (AUTO) 0.1 10^3/uL (0.0-0.6); ABSOLUTE LYMPHOCYTES (AUTO) 1.6 10^3/uL (0.5-4.7); ABSOLUTE MONOCYTES (AUTO) 0.9 10^3/uL (0.1-1.4); ABSOLUTE NEUT (AUTO) 5.7 10^3/uL (1.7-8.2); BASOPHILS % (AUTO) 0.7 % (0-2); EOSINOPHILS % (AUTO) 1.3 % (0-6); HEMATOCRIT 42.6 % (36.0-47.0); HEMOGLOBIN 14.6 g/dL (12.0-15.5); LYMPHOCYTES % (AUTO) 18.6 % (13-45); MEAN CORPUSCULAR HEMOGLOBIN 32.9 pg (27.0-33.4); MEAN CORPUSCULAR HGB CONC 34.3 g/dL (32.0-36.0); MEAN CORPUSCULAR VOLUME 96 fl (80-97); MONOCYTES % (AUTO) 10.8 % (3-13); PLATELET COUNT 129 10^3/uL (150-450); RED BLOOD COUNT 4.44 10^6/uL (3.72-5.28); RED CELL DISTRIBUTION WIDTH 14.7 % (11.5-14.0); SEGMENTED NEUTROPHILS % (AUTO) 68.6 % (42-78); TOTAL CELLS COUNTED % (AUTO) 100 %; WHITE BLOOD COUNT 8.4 10^3/uL (4.0-10.5)
[2017-09-09 08:18] LABS: ALANINE AMINOTRANSFERASE 40 U/L (9-52); ALBUMIN 3.6 g/dL (3.5-5.0); ALKALINE PHOSPHATASE 84 U/L (38-126); ANION GAP 14 (5-19); ASPARTATE AMINO TRANSFERASE 70 U/L (14-36); BILIRUBIN,DIRECT 0.6 mg/dL (0.0-0.4); BILIRUBIN,TOTAL 2.3 mg/dL (0.2-1.3); BLOOD UREA NITROGEN 28 mg/dL (7-20); CALCIUM 10.3 mg/dL (8.4-10.2); CARBON DIOXIDE 21 mmol/L (22-30); CHLORIDE 112 mmol/L (98-107); GLUCOSE 272 mg/dL (75-110); SODIUM 147.2 mmol/L (137-145); TOTAL PROTEIN 7.7 g/dL (6.3-8.2)
[2017-09-09] MEDS: ESCITALOPRAM OXALATE 10 MG TABLET PO SCH (09:12)
--- NOTE | 2017-09-09 09:55 | EKG REPORT ---
SEVERITY:- BORDERLINE ECG - SINUS RHYTHM VENTRICULAR PREMATURE COMPLEX BORDERLINE T ABNORMALITIES, INFERIOR LEADS : Confirmed by: Pj Connors 09-Sep-2017 09:54:40
[2017-09-09] MEDS ORDERED: FUROSEMIDE 40 MG TABLET PO SCH (10:00)
[2017-09-09] MEDS: FUROSEMIDE 20 MG TABLET PO SCH ×2 (10:09→17:19)
[2017-09-09] MEDS: LACTULOSE SYRUP 20 GM/30 ML UDCUP PO SCH ×4 (10:09→22:45)
[2017-09-09] MEDS: SPIRONOLACTONE 25 MG TABLET PO SCH ×2 (10:09→17:19)
[2017-09-09] MEDS: FLUTICASONE/SALMETEROL DISKUS 250-50 MCG/DOSE IH SCH ×2 (10:10→17:19)
--- NOTE | 2017-09-09 18:36 | Progress Note ---
Provider Note Provider Note: The patient is a 62-year-old female with past medical history of liver cirrhosis , hypertension, asthma, COPD, type 2 diabetes mellitus, and obesity who was admitted by the Edger Technician for hepatic encephalopathy. The patient was briefly seen, overnight events, vital signs, laboratory results , and orders were reviewed. Plan of care was discussed with nursing. 1) hepatic encephalopathy: Patient received rectal lactulose overnight; ammonia has decreased to 40 and the patient is now arousable and tolerating small sips of fluids with medications. She is transitioned to p.o. lactulose 20 g 4 times daily. Will add encephalopathy dosed rifaximin. Provide for patient safety. 2) liver cirrhosis: Continue losartan, spironolactone, furosemide, Rifaximin and lactulose as above. 3) acute on chronic kidney disease: Improved with gentle IV fluids. Continue. Encourage p.o. fluids. Avoid nephrotoxic medications. Monitor serial chemistries. 4) type 2 diabetes mellitus and obese: The patient is placed on a consistent carb diet, though with noted minimal intake. We will decrease her Lantus to prevent hypoglycemia. Continue Accu-Cheks before meals and at bedtime with Humalin for sliding scale coverage and hypoglycemia protocol in place. 5) coagulopathy: INR of 1.24; secondary to #2. Will repeat PT/INR with am labs.
[2017-09-09] MEDS ORDERED: INSULIN GLARGINE,HUM.REC.ANLOG 300 UNIT/3 ML INSULN.PEN SUBCUT SCH (22:00)
[2017-09-09] MEDS: INSULIN GLARGINE,HUM.REC.ANLOG 300 UNIT/3 ML INSULN.PEN SUBCUT SCH (22:45)
[2017-09-10] MEDS: LACTULOSE SYRUP 20 GM/30 ML UDCUP PO SCH ×6 (02:23→23:27)
[2017-09-10] MEDS: GABAPENTIN 400 MG CAPSULE PO SCH ×3 (06:06→23:27)
[2017-09-10] MEDS: INSULIN REG, HUMAN 100 UNIT/ML 3 ML VIAL (PYX) SUBCUT PRN ×4 (06:20→23:59)
[2017-09-10] MEDS: HEPARIN SOD (PORCINE) 5,000 UNIT/ML 1 ML SYRINGE SUBCUT SCH ×3 (06:20→23:35)
[2017-09-10 07:12] LABS: HEMATOCRIT 45.7 % (36.0-47.0); HEMOGLOBIN 15.5 g/dL (12.0-15.5); MEAN CORPUSCULAR VOLUME 97 fl (80-97); PLATELET COUNT 141 10^3/uL (150-450); RED CELL DISTRIBUTION WIDTH 14.2 % (11.5-14.0); WHITE BLOOD COUNT 10.2 10^3/uL (4.0-10.5)
[2017-09-10 07:14] LABS: INTERNATIONAL RATION (INR) 1.28; PROTHROMBIN TIME 16.6 SEC (11.4-15.4)
--- NOTE | 2017-09-10 07:55 | PDOC CONSULTATION ---
Consultation Consult Date: 09/09/17 Attending physician:: CHUNG REZA Consult reason:: Enchephalopathy due to cirrhosis History of Present Illness Admission Date/PCP: 09/09/17 01:26 [facility] RICKETTS DO History of Present Illness: ELISSA ROBERTS is a 62 year old female she is a patient of Dr Ricketts at [facility] recently referred for EGD no esophageal or gastric varices noted called answering service, noted to have confusion advised to go to ED admitted for encephalopathy likely due to dehydration patient admitted, elevated ammonia levels other causes noted to be negative patient had negative head CT does not appear to have overt infection Past Medical History Cardiac Medical History: Reports: Hypertension Denies: Coronary Artery Disease, Myocardial Infarction Pulmonary Medical History: Reports: Asthma, Pneumonia Denies: Bronchitis, Chronic Obstructive Pulmonary Disease (COPD) Neurological Medical History: Denies: Seizures Endocrine Medical History: Reports: Diabetes Mellitus Type 2 GI Medical History: Reports: Cirrhosis Musculoskeltal Medical History: Reports: Arthritis - OA LUMBAR, NECK, SHOULDERS Psychiatric Medical History: Reports: Depression Hematology: Denies: Anemia Past Surgical History Past Surgical History: Reports: Tubal Ligation Denies: Hysterectomy Social History Lives with: Alone Smoking Status: Never Smoker Frequency of Alcohol Use: None Hx Recreational Drug Use: Yes Drugs: None Hx Prescription Drug Abuse: No - Advance Directive Resuscitation Status: Full Code Family History Family History: Reviewed & Not Pertinent Parental Family History Reviewed: Yes Children Family History Reviewed: Unknown Sibling(s) Family History Reviewed.: Unknown Medication/Allergy Home Medications: Fluticasone/Salmeterol [Advair 250-50 Diskus 28 dose] 1 puff IH BID 03/19/17 Gabapentin [Neurontin 400 mg Capsule] 400 mg PO Q8 03/19/17 Insulin Aspart [Novolog Insulin (Aspart) 100 unit/mL] 0 units SQ .PERSLIDINGSCALE 03/19/17 Losartan Potassium [Cozaar 100 mg Tablet] 100 mg PO DAILY 03/19/17 Furosemide [Lasix 40 mg Tablet] 1 tab PO BID 09/04/17 Lactulose 1 tab PO TID 09/04/17 Spironolactone 1 tab PO BID 09/04/17 Albuterol Sulfate [Proair HFA] 1 - 2 puff PO PRN PRN 09/06/17 Ergocalciferol (Vitamin D2) [Vitamin D] 50,000 unit PO ASDIR PRN 09/06/17 Escitalopram Oxalate [Lexapro 10 mg Tablet] 10 mg PO DAILY 09/06/17 Insulin Glargine,Hum.rec.anlog [Lantus Insulin 100 Unit/mL] 65 unit SUBCUT QHS 09/06/17 Allergies/Adverse Reactions: hydromorphone Allergy (Intermediate, Verified 09/07/17 07:57) AMS oxycodone Allergy (Intermediate, Verified 09/07/17 07:57) AMS Review of Systems Constitutional: PRESENT: weakness. ABSENT: fever(s), headache(s), night sweats Eyes: ABSENT: visual disturbances Ears: ABSENT: hearing changes Nose, Mouth, and Throat: ABSENT: mouth pain Cardiovascular: ABSENT: chest pain, edema Respiratory: ABSENT: dyspnea, hemoptysis Gastrointestinal: ABSENT: hematochezia, melena, nausea, vomiting Genitourinary: ABSENT: dysuria, hematuria Musculoskeletal: ABSENT: joint swelling Integumentary: ABSENT: pruritus Neurological: ABSENT: syncope, tingling, tremor(s), vertigo Endocrine: ABSENT: polydipsia, polyphagia, polyuria Hematologic/Lymphatic: ABSENT: easy bruising Physical Exam Vital Signs: Temp Pulse Resp BP Pulse Ox 98.7 F 91 17 102/53 L 98 09/09/17 08:00 09/09/17 08:00 09/09/17 08:00 09/09/17 08:00 09/09/17 08:00 Intake & Output 09/08/17 09/09/17 09/10/17 06:59 06:59 06:59 Intake Total 188 Balance 188 Weight 76.5 kg General appearance: PRESENT: no acute distress, well-developed, well-nourished Head exam: PRESENT: atraumatic, normocephalic Eye exam: PRESENT: EOMI, PERRLA. ABSENT: nystagmus, periorbital swelling Mouth exam: PRESENT: moist, neck supple Throat exam: ABSENT: tonsillar exudate, tonsillogmegaly Neck exam: ABSENT: meningismus, tenderness, thyromegaly Respiratory exam: PRESENT: symmetrical, unlabored. ABSENT: tachypnea, wheezes Cardiovascular exam: PRESENT: RRR, +S1, +S2 GI/Abdominal exam: PRESENT: soft. ABSENT: Huang's sign, rebound, rigid, tenderness Extremities exam: ABSENT: joint swelling Musculoskeletal exam: PRESENT: full ROM Neurological exam: PRESENT: altered, CN II-XII grossly intact Focused psych exam: ABSENT: restlessness Skin exam: PRESENT: normal color. ABSENT: mottled, pallor, urticaria, vesicles Results Laboratory Results: 09/09/17 07:47 09/09/17 07:47 09/09/17 09/09/17 09/09/17 07:47 07:47 07:47 WBC 8.4 RBC 4.44 Hgb 14.6 Hct 42.6 MCV 96 MCH 32.9 MCHC 34.3 RDW 14.7 H Plt Count 129 L Seg Neutrophils % 68.6 Lymphocytes % 18.6 Monocytes % 10.8 Eosinophils % 1.3 Basophils % 0.7 Absolute Neutrophils 5.7 Absolute Lymphocytes 1.6 Absolute Monocytes 0.9 Absolute Eosinophils 0.1 Absolute Basophils 0.1 Sodium 147.2 H Potassium 4.0 Chloride 112 H Carbon Dioxide 21 L Anion Gap 14 BUN 28 H Creatinine 1.49 H Est GFR ( Amer) 43 L Est GFR (Non-Af Amer) 35 L Glucose 272 H Calcium 10.3 H Magnesium 1.5 L Total Bilirubin 2.3 H AST 70 H ALT 40 Alkaline Phosphatase 84 Ammonia 40.4 H Total Protein 7.7 Albumin 3.6 Impressions: Head CT 09/08/17 21:43 IMPRESSION: No acute intracranial hemorrhage or acute territorial infarct. EVIDENCE OF ACUTE STROKE: NO. Assessment & Plan - Diagnosis (1) Hepatic encephalopathy Is this a current diagnosis for this admission?: Yes Plan: fmay have been due to recent outpatient paracentesis along with initiation of diuretic coverage needs to have hydration rule out any source of infection there is no need to follow ammonia levels Lactulose until having loose stools enscure adequate hydration has a slight hypernatremia as well patient to limit both salt and protein intake once oral feedings are restarted (2) Liver cirrhosis Is this a current diagnosis for this admission?: Yes Plan: has had out patient work up appears to be due to NAFLD she will need a referral to a tertiary center for possible being placed on a liver transplant list would recommending getting imaging, including ultraound calculate the MELD score - Time Time Spent: 50 to 70 Minutes
[2017-09-10 09:04] LABS: ALANINE AMINOTRANSFERASE 34 U/L (9-52); ALBUMIN 3.7 g/dL (3.5-5.0); ALKALINE PHOSPHATASE 83 U/L (38-126); ANION GAP 16 (5-19); ASPARTATE AMINO TRANSFERASE 61 U/L (14-36); BILIRUBIN,DIRECT 0.8 mg/dL (0.0-0.4); BILIRUBIN,TOTAL 2.5 mg/dL (0.2-1.3); BLOOD UREA NITROGEN 28 mg/dL (7-20); CALCIUM 10.1 mg/dL (8.4-10.2); CARBON DIOXIDE 16 mmol/L (22-30); CHLORIDE 116 mmol/L (98-107); GLUCOSE 347 mg/dL (75-110); POTASSIUM 4.3 mmol/L (3.6-5.0); SODIUM 148.2 mmol/L (137-145)
[2017-09-10] MEDS ORDERED: LOSARTAN POTASSIUM 50 MG TABLET PO SCH (10:00)
[2017-09-10] MEDS: RIFAXIMIN 550 MG TABLET PO SCH ×2 (10:54→17:49)
[2017-09-10] MEDS: FUROSEMIDE 20 MG TABLET PO SCH ×2 (10:55→17:50)
[2017-09-10] MEDS: ESCITALOPRAM OXALATE 10 MG TABLET PO SCH (10:56)
[2017-09-10] MEDS: SPIRONOLACTONE 25 MG TABLET PO SCH (10:56)
[2017-09-10] MEDS: FLUTICASONE/SALMETEROL DISKUS 250-50 MCG/DOSE IH SCH ×2 (10:57→18:13)
[2017-09-10] MEDS ORDERED: RINGERS SOLUTION,LACTATED 1,000 ML IV PRN (14:30)
--- NOTE | 2017-09-10 17:39 | PDOC PROGRESS REPORT ---
Subjective Progress Note for:: 09/10/17 Subjective:: The patient is a 62-year-old female with past medical history of liver cirrhosis , hypertension, asthma, COPD, type 2 diabetes mellitus, and obesity who was admitted 09/09/17 for hepatic encephalopathy The patient was seen on afternoon rounds. She is found resting in bed comfortably on room air. She was sleeping when I enter the room but did wake quickly when I knocked on the open door; stating "good morning." The patient was noted to be quite somnolent quickly fell back to sleep. She did wake easily when I asked her what her name was not to take multiple questioning before she was able to tell me that her name is Masha. She then answers all other questions with "yes." I was able to speak with her lifelong friend, Ms. Garcia, by the phone today. Ms. Garcia is going to provide us with contact information for Ms. Gant's children. Reason For Visit: ALTERED MENTAL STATUS, HEPATIC ENCEPHALOPATHY Physical Exam Vital Signs: Temp Pulse Resp BP Pulse Ox 98.9 F 94 18 113/67 94 09/10/17 15:16 09/10/17 15:16 09/10/17 15:16 09/10/17 15:16 09/10/17 15:16 Intake & Output 09/09/17 09/10/17 09/11/17 06:59 06:59 06:59 Intake Total 188 902 0 Output Total 800 300 Balance 188 102 -300 Weight 76.5 kg 76.5 kg General appearance: PRESENT: no acute distress, obese, well-developed Head exam: PRESENT: atraumatic, normocephalic Eye exam: PRESENT: conjunctiva pink, EOMI, PERRLA. ABSENT: scleral icterus Mouth exam: PRESENT: moist, tongue midline Neck exam: ABSENT: carotid bruit, JVD, lymphadenopathy, thyromegaly Respiratory exam: PRESENT: clear to auscultation betty, symmetrical, unlabored. ABSENT: rales, rhonchi, wheezes Cardiovascular exam: PRESENT: RRR, +S2. ABSENT: diastolic murmur, rubs, systolic murmur Pulses: PRESENT: normal dorsalis pedis pul Vascular exam: PRESENT: normal capillary refill GI/Abdominal exam: PRESENT: diminished bowel sounds, distended, soft, tenderness - Diffuse tenderness with palpation; patient noted to grimace and withdraw from pain. ABSENT: guarding, mass, organolmegaly, rebound Rectal exam: PRESENT: deferred Extremities exam: PRESENT: full ROM. ABSENT: calf tenderness, clubbing, pedal edema Neurological exam: PRESENT: alert, oriented to place, other - Somnolent; patient does wake easily. Requires multiple attempts to answer her name. Oriented to self only.. ABSENT: motor sensory deficit Skin exam: PRESENT: dry, intact, jaundice - Mild, warm. ABSENT: cyanosis, rash Results Laboratory Results: 09/10/17 06:50 09/10/17 08:00 09/10/17 09/10/17 09/10/17 06:50 06:50 06:50 WBC 10.2 RBC 4.70 Hgb 15.5 Hct 45.7 MCV 97 MCH 33.0 MCHC 34.0 RDW 14.2 H Plt Count 141 L Sodium Cancelled Potassium Cancelled Chloride Cancelled Carbon Dioxide Cancelled Anion Gap Cancelled BUN Cancelled Creatinine Cancelled Est GFR ( Amer) Cancelled Est GFR (Non-Af Amer) Cancelled Glucose Cancelled Calcium Cancelled Total Bilirubin Cancelled AST Cancelled ALT Cancelled Alkaline Phosphatase Cancelled Ammonia 61.8 H Total Protein Cancelled Albumin Cancelled 09/10/17 08:00 WBC RBC Hgb Hct MCV MCH MCHC RDW Plt Count Sodium 148.2 H Potassium 4.3 Chloride 116 H Carbon Dioxide 16 L Anion Gap 16 BUN 28 H Creatinine 1.54 H Est GFR ( Amer) 41 L Est GFR (Non-Af Amer) 34 L Glucose 347 H Calcium 10.1 Total Bilirubin 2.5 H AST 61 H ALT 34 Alkaline Phosphatase 83 Ammonia Total Protein 8.0 Albumin 3.7 Impressions: Head CT 09/08/17 21:43 IMPRESSION: No acute intracranial hemorrhage or acute territorial infarct. EVIDENCE OF ACUTE STROKE: NO. Assessment & Plan - Diagnosis (1) Hepatic encephalopathy Is this a current diagnosis for this admission?: Yes Plan: The patient was admitted for decreased mental status and a known history of liver cirrhosis. LFTs, coags, and ammonia were elevated on admission. The patient has been admitted to the medical floor on continuous cardiac telemetry. Fall and aspiration precautions are in place. Continue lactulose 20 g every 4 hours; Rifaximin was added yesterday. Despite this, ammonia continues to trend up. Consider glucocorticoids for alcoholic hepatitis. We will evaluate additional causes for encephalopathy: repeat urinalysis, repeat blood and urine cultures, will check acute hepatitis panel, obtain CT of the abdomen and pelvis. The patient remains afebrile and WBCs are normal, otherwise would consider acute spontaneous peritonitis. No nuchal rigidity; very low suspicion for meningitis. (2) Acute on chronic kidney failure Is this a current diagnosis for this admission?: Yes Plan: Acute chronic insufficiency in setting of CKD 3; likely secondary to poor p.o. intake. Baseline creatinine appears to be 1.15; currently 1.54. Continue IV fluids. Avoid nephrotoxic medications as able. Monitor serial chemistries. (3) Abdominal pain Qualifiers: Abdominal location: generalized Qualified Code(s): R10.84 - Generalized abdominal pain Is this a current diagnosis for this admission?: Yes Plan: Generalized abdominal pain on palpation noted today; patient displayed facial grimacing attempted to withdraw. We will obtain a noncontrasted CT of the abdomen and pelvis. (4) Diabetes mellitus type 2 in obese Is this a current diagnosis for this admission?: Yes Plan: The patient is currently ordered a consistent carb diet; although, has poor p.o. intake. We will check Accu-Cheks before meals and at bedtime with Humalog for sliding scale coverage and hypoglycemia protocols in place. (5) Liver cirrhosis Is this a current diagnosis for this admission?: Yes Plan: The patient's home dose losartan is continued. Spironolactone and furosemide are gently increased. Continue lactulose 20 g 4 hours. We will try take 2-3 loose bowel movements daily. Rifaximin added yesterday. Continue to monitor daily chemistry. (6) Coagulopathy Is this a current diagnosis for this admission?: Yes Plan: Secondary to liver cirrhosis. Continue to monitor. - Time Time Spent with patient: 25-34 minutes Medications reviewed and adjusted accordingly: Yes - Inpatient Certification Based on my medical assessment, after consideration of the patient's comorbidities, presenting symptoms, or acuity I expect that the services needed warrant INPATIENT care.: Yes I certify that my determination is in accordance with my understanding of Medicare's requirements for reasonable and necessary INPATIENT services [42 CFR 412.3e].: Yes Medical Necessity: Failure to Improve With Outpatient Therapy, Need Close Monitoring Due to Risk of Patient Decompensation, Need For IV Fluids
[2017-09-10] MEDS ORDERED: SPIRONOLACTONE 25 MG TABLET PO SCH (18:00)
[2017-09-10 18:38] LABS: APPEARANCE,URINE SLIGHTLY-CLOUDY; BILIRUBIN,URINE NEGATIVE (NEGATIVE); COLOR,URINE YELLOW; GLUCOSE, URINE 150 mg/dL (NEGATIVE); KETONES,URINE NEGATIVE (NEGATIVE); LEUKOCYTE ESTERASE,URINE SMALL (NEGATIVE); NITRITE,URINE NEGATIVE (NEGATIVE); PROTEIN,URINE NEGATIVE (NEGATIVE); URINE SPECIFIC GRAVITY 1.023
[2017-09-10] MEDS: INSULIN GLARGINE,HUM.REC.ANLOG 300 UNIT/3 ML INSULN.PEN SUBCUT SCH (23:28)
--- NOTE | 2017-09-10 23:59 | RADIOLOGY REPORT (SQ) ---
EXAM DESCRIPTION: CT ABDOMEN PELVIS WITHOUT IV CONTRAST COMPLETED DATE/TME: 09/10/2017 16:34 CLINICAL HISTORY: Diffuse abdominal pain. Cirrhosis. COMPARISON: 08/01/2017 TECHNIQUE: CT of the abdomen and pelvis without IV contrast. Evaluation of the solid organs and vasculature is suboptimal due to lack of IV contrast. DLP: 919.01 mGy-cm FINDINGS: Lung Bases: The visualized lung bases are clear. Bones: Degenerative spondylosis of the visualized thoracic and lumbar spine. Abdomen: Liver: Nodular contour of the liver without definite intrahepatic mass. Gallbladder: Large calcified gallstone. Spleen, Pancreas, and Adrenal Glands: The spleen, pancreas, and adrenal glands are unremarkable. Kidneys: The kidneys have normal size and contour without evidence of hydronephrosis. No obstructing ureteral calculi. Vasculature: Aortoiliac atherosclerosis. IVC is unremarkable. Numerous portal collaterals identified. Small amount of portal venous gas noted in a collaterals seen on image #52, series 3. Stomach: The stomach and duodenum have normal course. Other: No free intraperitoneal air. Small amount of subdiaphragmatic fluid. Pelvis: Bladder: Nolasco catheter in the urinary bladder. Bowel: Wall thickening of the ascending colon with adjacent inflammatory fat stranding. Curvilinear foci of air in the gallbladder wall may represent pneumatosis. Scattered diverticula of the colon. Appendix: The appendix is not identified. Pelvis: Uterus is not enlarged. IMPRESSION: 1. Pneumatosis intestinalis, wall thickening, and pericolic inflammatory change involving the ascending colon with small amount of portal venous gas. These findings could be seen with ischemic colitis. Other etiology of colitis not excluded. 2. Findings compatible with cirrhosis and portal hypertension. 3. Cholelithiasis. Urgent finding reported to Alla Vu RN at 09/10/2017 10:50 PM CDT This exam was performed according to our departmental dose-optimization program, which includes automated exposure control, adjustment of the mA and/or kV according to patient size and/or use of iterative reconstruction technique.
--- NOTE | 2017-09-11 01:20 | PDOC CONSULTATION ---
Consultation Consult Date: 09/11/17 Consult reason:: Asked to evaluate patient with hepatic encephalopathy and bowel abnormality on CT scan. History of Present Illness Admission Date/PCP: 09/09/17 01:26 [facility] AGEE DO History of Present Illness: ELISSA ROBERTS is a 62 year old female with end-stage hepatocellular cirrhosis currently in the hospital with acute onset hepatic encephalopathy. She underwent a CT scan tonight which demonstrated evidence of right colon ischemia. Patient is confused and unable to provide a history. Uncertain whether she has had history of recent abdominal pain. Patient apparently had underwent a EGD and soon after was noted to have a altered mental status and was subsequently admitted. Past Medical History Cardiac Medical History: Reports: Hypertension Denies: Coronary Artery Disease, Myocardial Infarction Pulmonary Medical History: Reports: Asthma, Pneumonia Denies: Bronchitis, Chronic Obstructive Pulmonary Disease (COPD) Neurological Medical History: Denies: Seizures Endocrine Medical History: Reports: Diabetes Mellitus Type 2 GI Medical History: Reports: Cirrhosis Musculoskeltal Medical History: Reports: Arthritis - OA LUMBAR, NECK, SHOULDERS Psychiatric Medical History: Reports: Depression Hematology: Denies: Anemia Past Surgical History Past Surgical History: Reports: Tubal Ligation Denies: Hysterectomy Social History Lives with: Alone Smoking Status: Never Smoker Frequency of Alcohol Use: None Hx Recreational Drug Use: Yes Drugs: None Hx Prescription Drug Abuse: No - Advance Directive Resuscitation Status: Full Code Family History Parental Family History Reviewed: No Children Family History Reviewed: No Sibling(s) Family History Reviewed.: No Medication/Allergy Home Medications: Fluticasone/Salmeterol [Advair 250-50 Diskus 28 dose] 1 puff IH BID 03/19/17 Gabapentin [Neurontin 400 mg Capsule] 400 mg PO Q8 03/19/17 Insulin Aspart [Novolog Insulin (Aspart) 100 unit/mL] 0 units SQ .PERSLIDINGSCALE 03/19/17 Losartan Potassium [Cozaar 100 mg Tablet] 100 mg PO DAILY 03/19/17 Furosemide [Lasix 40 mg Tablet] 1 tab PO BID 09/04/17 Spironolactone 25 mg PO BID 09/04/17 Ergocalciferol (Vitamin D2) [Vitamin D] 50,000 unit PO WE@1000 PRN 09/06/17 Escitalopram Oxalate [Lexapro 10 mg Tablet] 10 mg PO DAILY 09/06/17 Insulin Glargine,Hum.rec.anlog [Lantus Insulin 100 Unit/mL] 65 unit SUBCUT QHS 09/06/17 Guaifenesin/Dextromethorphan [Guaiasorb Dm Liquid] 5 ml PO Q6HP PRN 09/09/17 Lactulose [Constulose 10 gm/15 mL Oral Solution] 10 gm PO Q6HP PRN 09/09/17 Lubiprostone [Amitiza 8 Mcg Capsule] 8 mcg PO DAILY 09/09/17 Allergies/Adverse Reactions: hydromorphone Allergy (Intermediate, Verified 09/07/17 07:57) AMS oxycodone Allergy (Intermediate, Verified 09/07/17 07:57) AMS Physical Exam Vital Signs: Temp Pulse Resp BP Pulse Ox 98.7 F 94 16 132/63 H 98 09/10/17 23:58 09/10/17 23:58 09/10/17 23:58 09/10/17 23:58 09/10/17 23:58 Intake & Output 09/09/17 09/10/17 09/11/17 06:59 06:59 06:59 Intake Total 188 902 750 Output Total 800 300 Balance 188 102 450 Weight 76.5 kg 76.5 kg General appearance: PRESENT: disheveled - Confused. Does not respond to commands. Laying in position. Respiratory exam: PRESENT: clear to auscultation betty Cardiovascular exam: PRESENT: tachycardia GI/Abdominal exam: PRESENT: other - Distended, soft, patient grimaces with right -sided abdominal palpation. No overt peritoneal signs however. Neurological exam: PRESENT: altered Results Laboratory Results: 09/10/17 06:50 09/10/17 08:00 09/10/17 09/10/17 09/10/17 06:50 06:50 06:50 WBC 10.2 RBC 4.70 Hgb 15.5 Hct 45.7 MCV 97 MCH 33.0 MCHC 34.0 RDW 14.2 H Plt Count 141 L Sodium Cancelled Potassium Cancelled Chloride Cancelled Carbon Dioxide Cancelled Anion Gap Cancelled BUN Cancelled Creatinine Cancelled Est GFR ( Amer) Cancelled Est GFR (Non-Af Amer) Cancelled Glucose Cancelled Calcium Cancelled Total Bilirubin Cancelled AST Cancelled ALT Cancelled Alkaline Phosphatase Cancelled Ammonia 61.8 H Total Protein Cancelled Albumin Cancelled Urine Color Urine Appearance Urine pH Ur Specific [place] Urine Protein Urine Glucose (UA) Urine Ketones Urine Blood Urine Nitrite Ur Leukocyte Esterase Urine WBC (Auto) Urine RBC (Auto) 09/10/17 09/10/17 08:00 18:06 WBC RBC Hgb Hct MCV MCH MCHC RDW Plt Count Sodium 148.2 H Potassium 4.3 Chloride 116 H Carbon Dioxide 16 L Anion Gap 16 BUN 28 H Creatinine 1.54 H Est GFR ( Amer) 41 L Est GFR (Non-Af Amer) 34 L Glucose 347 H Calcium 10.1 Total Bilirubin 2.5 H AST 61 H ALT 34 Alkaline Phosphatase 83 Ammonia Total Protein 8.0 Albumin 3.7 Urine Color YELLOW Urine Appearance SLIGHTLY-CLOUDY Urine pH 5.0 Ur Specific [place] 1.023 Urine Protein NEGATIVE Urine Glucose (UA) 150 H Urine Ketones NEGATIVE Urine Blood NEGATIVE Urine Nitrite NEGATIVE Ur Leukocyte Esterase SMALL H Urine WBC (Auto) 16 Urine RBC (Auto) 2 Impressions: Head CT 09/08/17 21:43 IMPRESSION: No acute intracranial hemorrhage or acute territorial infarct. EVIDENCE OF ACUTE STROKE: NO. Abdomen/Pelvis CT 09/10/17 16:34 IMPRESSION: 1. Pneumatosis intestinalis, wall thickening, and pericolic inflammatory change involving the ascending colon with small amount of portal venous gas. These findings could be seen with ischemic colitis. Other etiology of colitis not excluded. 2. Findings compatible with cirrhosis and portal hypertension. 3. Cholelithiasis. Urgent finding reported to Alla Vu RN at 09/10/2017 10:50 PM CDT This exam was performed according to our departmental dose-optimization program, which includes automated exposure control, adjustment of the mA and/or kV according to patient size and/or use of iterative reconstruction technique. Assessment & Plan - Diagnosis (1) Large bowel ischemia Is this a current diagnosis for this admission?: Yes Plan: Evidence of ischemic right colon with portal venous gas in patient with end- stage liver disease with hepatic encephalopathy. Recommend immediate transfer to tertiary care center for possible exploratory laparotomy with bowel resection. I have discussed this recommendation with the hospitalist.
[2017-09-11] MEDS ORDERED: METRONIDAZOLE 500 MG/NS RTU 500 MG/100 ML RTUPB IV ONE (01:30)
[2017-09-11] MEDS ORDERED: LEVOFLOXACIN 500 MG/D5W RTU 500 MG/100 ML RTUPB IV ONE (02:00)
--- NOTE | 2017-09-11 03:53 | PDOC TRANSFER SUMMARY ---
General Admission Date/PCP: 09/09/17 01:26 [facility] AGEE DO Admission Date: 09/09/17 Transfer Date: 09/11/17 Accepting Facility: [facility] Resuscitation Status: Full Code - Transfer Diagnosis (1) Large bowel ischemia Is this a current diagnosis for this admission?: Yes Diagnosis Summary: Ischemic right colon (2) Hepatic encephalopathy Is this a current diagnosis for this admission?: Yes (3) Liver cirrhosis Is this a current diagnosis for this admission?: Yes (4) Acute kidney injury superimposed on CKD Is this a current diagnosis for this admission?: Yes (5) Diabetes mellitus type 2 in obese Is this a current diagnosis for this admission?: Yes (6) Coagulopathy Is this a current diagnosis for this admission?: Yes - Transfer Medications Home Medications: Fluticasone/Salmeterol [Advair 250-50 Diskus 28 dose] 1 puff IH BID 03/19/17 Gabapentin [Neurontin 400 mg Capsule] 400 mg PO Q8 03/19/17 Insulin Aspart [Novolog Insulin (Aspart) 100 unit/mL] 0 units SQ .PERSLIDINGSCALE 03/19/17 Losartan Potassium [Cozaar 100 mg Tablet] 100 mg PO DAILY 03/19/17 Furosemide [Lasix 40 mg Tablet] 1 tab PO BID 09/04/17 Spironolactone 25 mg PO BID 09/04/17 Ergocalciferol (Vitamin D2) [Vitamin D] 50,000 unit PO WE@1000 PRN 09/06/17 Escitalopram Oxalate [Lexapro 10 mg Tablet] 10 mg PO DAILY 09/06/17 Insulin Glargine,Hum.rec.anlog [Lantus Insulin 100 Unit/mL] 65 unit SUBCUT QHS 09/06/17 Guaifenesin/Dextromethorphan [Guaiasorb Dm Liquid] 5 ml PO Q6HP PRN 09/09/17 Lactulose [Constulose 10 gm/15 mL Oral Solution] 10 gm PO Q6HP PRN 09/09/17 Lubiprostone [Amitiza 8 Mcg Capsule] 8 mcg PO DAILY 09/09/17 Transfer Medications: Current Medications Dextrose (Dextrose Inj 50% Syringe (25 Gm/50 Ml)) 12.5 gm IV PRN PRN; Protocol PRN Reason: FOR BG 50-69 IN ALERT PATIENT Stop: 10/09/17 02:32 Dextrose (Dextrose Inj 50% Syringe (25 Gm/50 Ml)) 25 gm IV PRN PRN; Protocol PRN Reason: PER PROTOCOL Stop: 10/09/17 02:32 Ergocalciferol (Drisdol 50,000 Unit (1.25mg) Capsule) 50,000 unit PO We@1000 FAVIO Stop: 10/12/17 09:59 Escitalopram Oxalate (Lexapro 10 Mg Tablet) 10 mg PO DAILY FAVIO Stop: 10/09/17 09:59 Last Admin: 09/10/17 10:56 Dose: 10 mg Furosemide (Lasix 20 Mg Tablet) 10 mg PO BID FAVIO Stop: 10/09/17 09:59 Last Admin: 09/10/17 17:50 Dose: 10 mg Gabapentin (Neurontin 400 Mg Capsule) 400 mg PO Q8 FAVIO Stop: 10/09/17 05:59 Last Admin: 09/10/17 23:27 Dose: 400 mg Glucagon (Glucagen Inj 1 Mg Vial) 1 mg IM PRN PRN; Protocol PRN Reason: Evaluate for BG < 70 Stop: 10/09/17 02:32 Glucose (Glutose 40% Gel 15 Gm Tube) 15 gm PO PRN PRN; Protocol PRN Reason: FOR BG 50-69 IN ALERT PATIENT Stop: 10/09/17 02:32 Glucose (Glutose 40% Gel 15 Gm Tube) 30 gm PO PRN PRN; Protocol PRN Reason: FOR BG < 50 IN ALERT PATIENT Stop: 10/09/17 02:32 Heparin Sodium (Porcine) (Heparin Inj 5,000 Units/Ml 1 Ml Syringe) 5,000 unit SUBCUT Q8 FAVIO Stop: 10/09/17 05:59 Last Admin: 09/10/17 23:35 Dose: 5,000 unit Lactated Ringer's (Lactated Ringers 1000 Ml Iv Soln) 1,000 mls @ 125 mls/hr IV CONTINUOUS PRN PRN Reason: THIS MED IS NOT "PRN" Stop: 10/10/17 14:29 Metronidazole (Flagyl Rtu 500 Mg/Ns 100ml Premix) 500 mg in 100 mls @ 100 mls/ hr IV Q6A [facility] Stop: 09/18/17 08:59 Levofloxacin/Dextrose (Levaquin Rtu 500mg/D5w 100 Ml Premix) 500 mg in 100 mls @ 100 mls/hr IV QHS FAVIO Stop: 09/18/17 21:59 Insulin Glargine (Lantus Insulin Inj 300 Unit/3 Ml Pen) 10 unit SUBCUT QHS FAVIO Stop: 10/09/17 21:59 Last Admin: 09/10/17 23:28 Dose: 10 unit Insulin Human Regular (Humulin R (Pyxis) Insulin 100 Unit/Ml 3ml) 0 - 12 unit SUBCUT Q6HP PRN; Protocol PRN Reason: PER PROTOCOL Stop: 10/09/17 02:32 Last Admin: 09/10/17 23:59 Dose: 10 unit Lactulose (Cephulac Syrup 20 Gm/30 Ml Udcup) 20 gm PO Q4 FAVIO Stop: 10/09/17 09:59 Last Admin: 09/10/17 23:27 Dose: 20 gm Losartan Potassium (Cozaar 50 Mg Tablet) 100 mg PO DAILY FAVIO Stop: 10/10/17 09:59 Last Admin: 09/10/17 10:51 Dose: 100 mg Rifaximin (Xifaxan 550 Mg Tablet) 550 mg PO BID FAVIO Stop: 09/17/17 09:59 Last Admin: 09/10/17 17:49 Dose: 550 mg Fluticasone/Salmeterol (Advair 250-50 Diskus 14 Dose/Diskus) 1 inh IH BID FAVIO Stop: 10/09/17 09:59 Last Admin: 09/10/17 18:13 Dose: Not Given Spironolactone (Aldactone 25 Mg Tablet) 50 mg PO BID FAVIO Stop: 10/10/17 17:59 Last Admin: 09/10/17 17:49 Dose: 50 mg - Allergies Allergies/Adverse Reactions: hydromorphone Allergy (Intermediate, Verified 09/07/17 07:57) AMS oxycodone Allergy (Intermediate, Verified 09/07/17 07:57) AMS - Diet/Activity Discharge Diet: Other (Comments) - N.p.o. Discharge Activity: Bedrest Hospital Course Hospital Course: Ms. Sidra Gant is a 62 years old female with lethargic and unresponsive she was initially treated as hepatic encephalopathy with lactulose. GI with Dr. Reina was consulted he recommended IV hydration, rule out any source of infection and referral to a tertiary facility will place on a liver transplant list. It was noted that her mental status was not improving as expected and also she has started complaining yesterday of abdominal pain, CT of the abdomen was older and done tonight and came back with pneumatosis intestinalis, wall thickening and pericolic inflammatory changes involving the ascending colon with a small amount of portal venous gas, highly suspicious of ischemic colitis. Dr. Simons is our surgeon boning room worker and was immediately informed about these findings, he recommended immediate transfer to tertiary care center for possible exploratory laparotomy with bowel resection. [facility] has accepted the patient in transfer, accepting physician/ Surgeon Dr.Jenni Alvarado. Physical Exam Vital Signs: Temp Pulse Resp BP Pulse Ox 98.7 F 103 H 16 132/63 H 98 09/10/17 23:58 09/11/17 02:00 09/10/17 23:58 09/10/17 23:58 09/10/17 23:58 Intake & Output 09/09/17 09/10/17 09/11/17 06:59 06:59 06:59 Intake Total 188 902 750 Output Total 800 300 Balance 188 102 450 Weight 76.5 kg 76.5 kg Additional comments: General appearance: Lethargic, nocooperative falls asleep easily, barely follows commands, and appears to be in no acute distress Head: Normocephalic Eyes: PEERL, EOMI, vision is grossly intact. Ears: External auditory canal and tympanic membranes clear, hearing grossly intact. Nose: No nasal discharge. Throat: Oral cavity and pharynx very dry Neck: Neck supple, nontender without lymphadenopathy, masses or thyromegaly. Cardiac: Normal S1 and S2. No S3, S4 or murmurs. Rhythm is regular. There is peripheral edema, cyanosis or pallor. Extremities are warm and well perfused. Capillary refill is less than 2 seconds. No carotid bruits. Lungs: Clear to auscultation and percussion without rales, rhonchi, wheezing or diminished breath sounds. Not using accessory muscles. Abdomen: Decreased bowel sounds. Soft. Mild distended, diffused tenderness more in the right abdomen with mild guarding. No masses. Appreciate hepatosplenomegaly secondary to her body habitus Extremities: No significant deformity or joint abnormality. Peripheral pulses intact. No varicosities. Neurological: Unable to evaluate as patient lethargic Skin: Skin pale, normal texture and turgor with no lesions or eruptions, warm and dry. Psychiatric: Unable to evaluate as patient is lethargic Results Laboratory Results: 09/10/17 06:50 09/10/17 08:00 09/10/17 09/10/17 09/10/17 06:50 06:50 06:50 WBC 10.2 RBC 4.70 Hgb 15.5 Hct 45.7 MCV 97 MCH 33.0 MCHC 34.0 RDW 14.2 H Plt Count 141 L Sodium Cancelled Potassium Cancelled Chloride Cancelled Carbon Dioxide Cancelled Anion Gap Cancelled BUN Cancelled Creatinine Cancelled Est GFR ( Amer) Cancelled Est GFR (Non-Af Amer) Cancelled Glucose Cancelled Lactic Acid Calcium Cancelled Total Bilirubin Cancelled AST Cancelled ALT Cancelled Alkaline Phosphatase Cancelled Ammonia 61.8 H Total Protein Cancelled Albumin Cancelled Urine Color Urine Appearance Urine pH Ur Specific [place] Urine Protein Urine Glucose (UA) Urine Ketones Urine Blood Urine Nitrite Ur Leukocyte Esterase Urine WBC (Auto) Urine RBC (Auto) 09/10/17 09/10/17 09/11/17 08:00 18:06 01:22 WBC RBC Hgb Hct MCV MCH MCHC RDW Plt Count Sodium 148.2 H Potassium 4.3 Chloride 116 H Carbon Dioxide 16 L Anion Gap 16 BUN 28 H Creatinine 1.54 H Est GFR ( Amer) 41 L Est GFR (Non-Af Amer) 34 L Glucose 347 H Lactic Acid 3.2 H Calcium 10.1 Total Bilirubin 2.5 H AST 61 H ALT 34 Alkaline Phosphatase 83 Ammonia Total Protein 8.0 Albumin 3.7 Urine Color YELLOW Urine Appearance SLIGHTLY-CLOUDY Urine pH 5.0 Ur Specific [place] 1.023 Urine Protein NEGATIVE Urine Glucose (UA) 150 H Urine Ketones NEGATIVE Urine Blood NEGATIVE Urine Nitrite NEGATIVE Ur Leukocyte Esterase SMALL H Urine WBC (Auto) 16 Urine RBC (Auto) 2 Impressions: Head CT 09/08/17 21:43 IMPRESSION: No acute intracranial hemorrhage or acute territorial infarct. EVIDENCE OF ACUTE STROKE: NO. Abdomen/Pelvis CT 09/10/17 16:34 IMPRESSION: 1. Pneumatosis intestinalis, wall thickening, and pericolic inflammatory change involving the ascending colon with small amount of portal venous gas. These findings could be seen with ischemic colitis. Other etiology of colitis not excluded. 2. Findings compatible with cirrhosis and portal hypertension. 3. Cholelithiasis. Urgent finding reported to Alla Vu RN at 09/10/2017 10:50 PM CDT This exam was performed according to our departmental dose-optimization program, which includes automated exposure control, adjustment of the mA and/or kV according to patient size and/or use of iterative reconstruction technique. Plan Discharge Plan: Transfer to a tertiary facility for further management. [facility]. Time Spent: Greater than 30 Minutes
[2017-09-11 04:02] VITALS: BP 123/57
[2017-09-11] MEDS: LACTULOSE SYRUP 20 GM/30 ML UDCUP PO SCH (05:11)
[2017-09-11] MEDS ORDERED: METRONIDAZOLE 500 MG/NS RTU 500 MG/100 ML RTUPB IV SCH (09:00)
[2017-09-11] MEDS ORDERED: LEVOFLOXACIN 500 MG/D5W RTU 500 MG/100 ML RTUPB IV SCH (22:00)
[2017-09-12] MEDS ORDERED: ERGOCALCIFEROL (VITAMIN D2) 50000 UNIT (1.25 MG) CAPSULE PO SCH (10:00)
== END 2017-09-11 05:16 | disposition short-term general hospital (02) | DRG 394 ==
LOC: ER 20:53 → EH 09-09 01:26 → 5 09-09 04:10
PROVIDERS: ADMIT Internal Medicine; ATTEND Internal Medicine
DX: K55.9 Vascular disorder of intestine, unspecified (principal); N17.9 Acute kidney failure, unspecified; D68.9 Coagulation defect, unspecified; K72.90 Hepatic failure, unspecified without coma; K74.60 Unspecified cirrhosis of liver; N18.3 Chronic kidney disease, stage 3 (moderate); K63.89 Other specified diseases of intestine; E11.22 Type 2 diabetes mellitus with diabetic chronic kidney disease; E66.9 Obesity, unspecified; I12.9 Hypertensive chronic kidney disease with stage 1 through stage 4 chronic kidney disease, or unspecified chronic kidney disease; F32.9 Major depressive disorder, single episode, unspecified; J44.9 Chronic obstructive pulmonary disease, unspecified; Z98.890 Other specified postprocedural states; Z98.51 Tubal ligation status; M19.012 Primary osteoarthritis, left shoulder; M19.011 Primary osteoarthritis, right shoulder; M47.9 Spondylosis, unspecified; Z79.4 Long term (current) use of insulin; Z79.899 Other long term (current) drug therapy; Z88.5 Allergy status to narcotic agent; Z68.35 Body mass index [BMI] 35.0-35.9, adult
CPT/HCPCS: 36415; 43239; 70450; 71045; 74176; 80053; 81001; 82140; 82550; 82553; 82962; 83605; 83735; 84484; 85025; 85027; 85610; 85730; 87040; 87086; 87088; 87186; 88305; 93005; 93010; 99285; A9270-GY; J0171; J1200; J1610; J1644; J1815; J1956; J2250; J2310; J2405; J3010; J3490